=== PATIENT | female | born 1960 | race Caucasian/White ===

== ENCOUNTER → 2017-02-04 | Outpatient (CLI) | payer OTHER ==
--- NOTE | 2017-02-04 19:25 | RADRPT ---
PROCEDURE: XR Right hip and pelvis. CLINICAL INDICATION: Right hip pain and pelvic pain. TECHNIQUE: 3 views. Frontal pelvis. Frontal and lateral right hip. COMPARISON: None. FINDINGS: There is no fracture or dislocation. The soft tissues are normal. There are degenerative changes of the right hip with joint space narrowing, osteophytes, subarticula r sclerosis, and deformity. There are degenerative changes of the left hip with joint space narrowi ng and osteophytes. There is no lytic or blastic lesion. There is no radiopaque foreign body. IMPRESSION: 1. Severe degenerative changes of the right hip. 2. Moderate degenerative changes of the left hip. 3. No acute abnormality. RPTAT: QQ .Nilesh Wolfe MD, MD Date Time Electronically viewed and signed by .Nilesh Wolfe MD, on 02/04/2017 19:25 .R/
== END | disposition home or self-care (01) ==
LOC: HKI 15:43
PROVIDERS: ATTEND Orthopaedic Surgery
DX: M25.551 Pain in right hip (principal); M16.0 Bilateral primary osteoarthritis of hip
CPT/HCPCS: 73502; G0463

== ENCOUNTER 2017-08-27 05:48 | Inpatient (IN) | END 2017-08-28 15:25 | disposition home health service (06) | DRG 470 ==

== ENCOUNTER 2017-12-25 03:48 | Inpatient (IN) | END 2017-12-31 14:52 | disposition home health service (06) | DRG 467 ==

== ENCOUNTER 2018-07-03 15:56 | Inpatient (IN) | END 2018-07-06 12:25 | disposition home or self-care (01) | DRG 872 ==

== ENCOUNTER 2018-07-26 17:02 | Inpatient (IN) | payer OTHER ==
[~2018-07-26] VITALS: Ht 175.3 cm; Wt 105.1 kg
[~2018-07-26 17:02] MED LIST: CELE100C PO; DULO30CA47 PO; IBUP-1542 PO; LEVO50TA7 PO; SULF1TAB31 PO; TRAM50TA2 PO
[2018-07-26] MEDS ORDERED: SODIUM CHLORIDE 0.9% 1L BAG IV* STA (17:34)
[2018-07-26] MEDS ORDERED: morphine 4 MG/ML VIAL IV STA (17:34)
[2018-07-26] MEDS ORDERED: FENTAnyl 50 MCG/ML VIAL IV ONE ×2 (18:00→23:00)
[2018-07-26] MEDS ORDERED: CEFEPIME 1GM/50 ML (PMX) 50 ML IVPB ONE (18:00)
[2018-07-26] MEDS ORDERED: ACETAMINOPHEN 325 MG TAB PO ONE (18:00)
[2018-07-26] MEDS ORDERED: VANCOMYCIN 1 GM (PMX) 250 ML IVPB ONE (18:00)
--- NOTE | 2018-07-26 18:13 | ERD ---
ER Documentation Chief Complaint Chief Complaint RIGHT HIP PAIN HPI This is a 57-year-old female with a past medical history of hypothyroidism, bilateral hip osteoarthritis status post right XENIA in August 2017 complicated by an infected joint requiring washout and revision in December 2017 who is presenting with 1-2 days of severe right hip pain and fever. The patient presented in June 2018 for similar symptoms. A CT was performed at that time that demonstrated a small right joint effusion. The patient was evaluated by her orthopedic surgeon, Dr. Menchaca, who ultimately cleared her. It was felt at that time that her joint was not infected. The patient reports not feeling febrile or sick, but she is in a significant amount of pain. She does have oral narcotic medications at home, but they have not been helping her. She is also endorses significant pain with movement and has had increased difficulty with ambulation. She does not endorse any alleviating factors. The patient was found to be febrile in triage. The patient denies feeling sick recently. The patient denies fever or chills. The patient has had no headache or vision changes. The patient does not endorse neck or back pain. The patient denies lightheadedness or dizziness. The patient has had no chest pain or trouble breathing. The patient denies nausea or vomiting. The patient denies abdominal pain. The patient denies changes to bowel movements or urination. The patient has had no focal deficits. The patient has had no weakness or numbness or tingling to the face or extremities. ROS All systems reviewed and are negative except as per history of present illness. Medications Home Meds Active Scripts Celecoxib* (Celebrex*) 100 Mg Capsule, 100 MG PO BID for 14 Days, #30 CAP Prov:JEFFREY ARIAS MD 07/06/18 Reported Medications Duloxetine Hcl* (Duloxetine Hcl*) 30 Mg Capsule., 30 MG PO BID, #30 CAP 07/03/18 Levothyroxine Sodium* (Levothyroxine Sodium*) 50 Mcg Tablet, 50 MCG PO BEFORE BREAKFAST, #30 TAB 08/27/17 Tramadol HCl (Tramadol HCl) 50 Mg Tablet, 50 MG PO BID, #60 TAB 08/27/17 Ibuprofen* (Ibuprofen*) 600 Mg Tablet, 600 MG PO NEEDED, TAB 08/27/17 Discontinued Scripts Sulfamethoxazole/Trimethoprim* (Bactrim Ds* Tablet) 1 Each Tablet, 1 TAB PO BID for 7 Days, TAB Prov:JEFFREY ARIAS MD 07/06/18 Allergies Allergies: Coded Allergies: oxacillin (Verified Allergy, Severe, 07/26/18) dizziness and weakness of extremities. Pt tolerates cefazolin. PMhx/Soc History of Surgery: Yes (RIGHT HIP REPLACEMENT 08/2017, revision in 12/2017 due to septic joint) Anesthesia Reaction: No Hx Neurological Disorder: No Hx Respiratory Disorders: No Hx Cardiac Disorders: No Hx Psychiatric Problems: Yes (DEPRESSION) Hx Miscellaneous Medical Probl: Yes (B/l hip OA, hypothyroidism) Hx Alcohol Use: No Hx Substance Use: No Hx Tobacco Use: No Smoking Status: Never smoker FmHx Family History: No diabetes Physical Exam Vitals Vital Signs Date Temp Pulse Resp B/P (MAP) Pulse Ox O2 O2 Flow FiO2 Time Delivery Rate 07/26/18 100.1 106 18 140/78 97 Room Air 19:30 (98) 07/26/18 100.1 19:10 07/26/18 Nasal 17:41 Cannula 07/26/18 101.6 99 18 123/68 99 17:04 (86) Physical Exam Const: No apparent distress, well-developed, well-nourished Head: Normocephalic, Atraumatic Eyes: Normal Conjunctiva. Extraocular movements intact. Pupils equal, round and reactive to light ENT: Normal External Ears, Nose and Mouth. Neck: Full range of motion. No meningismus. Resp: Clear to auscultation bilaterally, No wheezes, rales or rhonchi Cardio: Regular rate and rhythm. No murmurs, rubs or gallops Abd: Soft, non tender, non distended. Normal bowel sounds Skin: No petechiae or rashes Back: No midline tenderness. No CVA tenderness Ext: No cyanosis, or edema. Warmth over the right hip. No erythema externally. Limited range of motion secondary to pain of the right hip. Neur: Awake and alert, oriented 4. Cranial nerves intact. No facial droop. Normal strength, sensation and coordination. Psych: Normal Mood and Affect Result Diagram: 07/26/18 1748 07/26/18 1748 Results 24 hrs Laboratory Tests Test 07/26/18 17:48 07/26/18 17:49 07/26/18 19:48 07/26/18 19:50 White Blood Count 9.9 10^3/ul Red Blood Count 3.16 10^6/ul Hemoglobin 9.0 g/dl Hematocrit 27.9 % Mean Corpuscular 88.3 fl Volume Mean Corpuscular 28.5 pg Hemoglobin Mean Corpuscular 32.3 g/dl Hemoglobin Concent Red Cell 13.5 % Distribution Width Platelet Count 390 10^3/UL Mean Platelet 8.7 fl Volume Immature 1.100 % Granulocytes % Neutrophils % 77.4 % Lymphocytes % 11.4 % Monocytes % 9.6 % Eosinophils % 0.1 % Basophils % 0.4 % Nucleated Red Blood 0.0 /100WBC Cells % Immature 0.110 10^3/ul Granulocytes # Neutrophils # 7.7 10^3/ul Lymphocytes # 1.1 10^3/ul Monocytes # 1.0 10^3/ul Eosinophils # 0.0 10^3/ul Basophils # 0.0 10^3/ul Nucleated Red Blood 0.0 10^3/ul Cells # Erythrocyte 128 mm/Hr Sedimentation Rate Prothrombin Time 13.2 Sec Prothrombin Time 1.0 Ratio INR International 0.99 Normalized Ratio Activated 38.4 Sec Partial Thromboplas t Time Sodium Level 135 mmol/L Potassium Level 3.4 mmol/L Chloride Level 101 mmol/L Carbon Dioxide 23 mmol/L Level Anion Gap 11 Blood Urea Nitrogen 14 mg/dl Creatinine 0.77 mg/dl Est Glomerular > 60 mL/min Filtrat Rate mL/min Glucose Level 109 mg/dl Calcium Level 9.6 mg/dl Total Bilirubin 0.1 mg/dl Direct Bilirubin 0.00 mg/dl Indirect Bilirubin 0.1 mg/dl Aspartate Amino 26 IU/L Transf (AST/SGOT) Alanine 10 IU/L Aminotransferase (A LT/SGPT) Alkaline 107 IU/L Phosphatase C-Reactive Protein 16.7 mg/dl Total Protein 8.1 g/dl Albumin 4.1 g/dl Globulin 4.00 g/dl Albumin/Globulin 1.02 Ratio POC Venous Lactate 2.4 mmol/L 0.3 mmol/L 1.0 mmol/L Current Medications Medications Dose Sig/Fidel Start Time Status Last (Trade) Ordered Route PRN Stop Time Admin Dose Reason Admin Sodium 1,640 ml BOLUS OVER 2 07/26/18 DC 07/26/18 Chloride HOURS STAT 17:34 17:46 (NS) IV* 07/26/18 17:40 Morphine 4 mg ONCE STAT 07/26/18 DC 07/26/18 Sulfate IV 17:34 17:46 (morphine) 07/26/18 17:56 650 mg ONCE ONCE 07/26/18 DC 07/26/18 Acetaminophen PO 18:00 18:10 (Tylenol 07/26/18 18:01 Tab) Vancomycin 250 ml @ ONCE ONCE 07/26/18 DC 07/26/18 HCl 125 mls/hr IVPB 18:00 18:10 07/26/18 19:59 Cefepime HCl 50 ml @ ONCE ONCE 07/26/18 DC 07/26/18 100 mls/hr IVPB 18:00 18:10 07/26/18 18:29 Fentanyl 50 mcg ONCE ONCE 07/26/18 DC 07/26/18 (Sublimaze) IV 18:00 20:08 07/26/18 18:01 IV Flush 10 ml STK-MED 07/26/18 DC 07/26/18 (NS 10 ml) ONCE .ROUTE 18:31 19:17 07/26/18 18:32 Sodium 100 ml @ ud STK-MED 07/26/18 DC 07/26/18 Chloride ONCE .ROUTE 18:31 19:17 07/26/18 18:32 Iohexol 150 ml STK-MED 07/26/18 DC 07/26/18 (Omnipaque ONCE .ROUTE 18:31 19:17 300mg/ ml) 07/26/18 18:32 Procedures/MDM MDM The patient's presentation warrants further investigation. Previous medical records, if available, were reviewed. LABS The patient's laboratory testing was obtained and reviewed. No emergent treatment was required unless described below. CBC: No E/o of systemic infection or severe anemia or thrombocytopenia. Mild normocytic anemia, not emergent. CMP: No E/o severe acidosis or alkalosis or renal failure or liver disease or diabetic ketoacidosis. Mild hypokalemia, nonemergent. Lactate: E/o severe sepsis ESR/CRP: Elevated EKG EKG read by me: Rate/Rhythm: Sinus tachycardia at 109 bpm Intervals: Normal [place]: Normal Impression: No evidence of acute ischemia or arrhythmia IMAGING Imaging and Radiology interpretation reviewed. CXR COMPARISON: 07/03/2018 FINDINGS: The cardiomediastinal silhouette is normal. There is no focal airspace consolidation or evidence of pulmonary vascular congestion. There is no pleural effusion or pneumothorax. The visualized osseous structures and soft tissues are unremarkable. IMPRESSION: No acute cardiopulmonary disease. Electronically viewed and signed by Physician kellen on 07/26/2018 18:21 CT Pelvis FINDINGS: Evaluation of the lung bases demonstrates mild bibasilar atelectasis. Abdomen: The liver is normal in size. There is no focal mass or dilatation of the biliary tree. The gallbladder is not distended. The spleen, pancreas and bilateral adrenal glands are within normal limits. Bilateral kidneys are normal in size with symmetric enhancement. There is no focal mass, hydronephrosis or hydroureter. There is no retroperitoneal adenopathy. The abdominal aorta is of normal caliber. There is moderate retained stool within the colon. There is no bowel obstruction or free air. A normal appendix is identified. There is no diverticulosis or diverticulitis. There is no ascites. Pelvis: The bladder is unremarkable. The uterus and adnexa are within normal limits. There is no significant pelvic adenopathy or free fluid. Bones: Evaluation of the osseous structures demonstrates no suspicious lytic or blastic lesion. The patient is status post total right hip arthroplasty with streak artifact. There is moderate narrowing of the superior left hip joint space with small osteophytes present. IMPRESSION: No acute abnormality identified within the abdomen and pelvis. Moderate retained stool within the colon. Moderate osteoarthritis of the left hip. Status post total hip knee arthroplasty. Electronically viewed and signed by .jJ Swartz MD, MD on 07/26/2018 19:15 TREATMENT/DISPOSITION The patient presents with a fever, lactic acidosis and severe right hip pain. The patient has had periprosthetic infections in the past, and I am concerned about the possibility of an infection today. The patient CT revealed. the patient was febrile and tachycardic which meets criteria for systemic inflammatory response. With her lactic acidosis, I am concerned about the p ossibility of severe sepsis. The patient is not in septic shock. The patient was given IV fluids and antibiotics in the emergency department. She was given morphine for pain control. I do feel the patient likely requires further evaluation by orthopedics. I spoke to the orthopedic surgeon ammonium hydroxide operator for Dr. Menchaca. Unfortunately, this physician does not perform joint replacements. He recommended that the patient be evaluated by the on-call orthopedic surgeon. Dr. Little was called and will assess the patient in the hospital. SEPSIS NOTE SIRS Criteria: Fever, tachycardia Infectious source: Right hip End organ damage indicated by: Lactate > 2.0 mmol/L SEPSIS MANAGEMENT Time to recognize sepsis: On arrival. Time to recognize severe sepsis: 1749. Time to recognize septic shock: No septic shock at this time. 3 HOUR BUNDLE Blood cultures x 2 before abx: Yes 30 ml/kg NS bolus completed Initial lactate 2.4 Repeat lactate pending SEPTIC SHOCK ASSESSMENT: NO lactic acid > 4.0 NO persistent hypotension (SBP < 90 or 40 mmHg drop, MAP < 65) despite 30 L/kg IV fluid bolus CRITICAL CARE Critical care time 35 minutes Emergent fluid management while maintaining close respiratory support. Provision of immediate and broad-spectrum antibiotic therapy. Simultaneous assessment for possible sources in order to direct targeted therapy. Consideration for invasive and chemical support to prevent cardiopulmonary collapse. Critical care time is independent of procedures performed. ADMISSION The patient will be admitted to panel in accordance with the patient's insuran ce. The patient was accepted by Dr. Donahue at 2044. Disclaimer: Inadvertent spelling and grammatical errors are likely due to EHR/dictation software use and do not reflect on the overall quality of patient care. Note that the electronic time recorded on this note does not necessarily reflect the actual time of the patient encounter. Departure Diagnosis: Primary Impression: Septic joint Septic arthritis location: hip Septic arthritis organism: due to unspecified organism Laterality: right Qualified Codes: M00.9 - Pyogenic arthritis, unspecified Additional Impressions: Right hip joint effusion Fever Fever type: unspecified Qualified Codes: R50.9 - Fever, unspecified Tachycardia Right hip pain Severe sepsis Lactic acidosis Normocytic anemia Elevated C-reactive protein (CRP) Hypokalemia Condition: Serious YONATHAN SANCHEZ MD Jul 26, 2018 18:06
[2018-07-26] MEDS ORDERED: SOD CHLORIDE 0.9% 100 ML ONE (18:31)
[2018-07-26] MEDS ORDERED: IOHEXOL 300MG/ML 150 ML BTL ONE (18:31)
[2018-07-26] MEDS ORDERED: ACETAMINOPHEN 325 MG TAB PO PRN ×2 (21:30→22:00)
[2018-07-26] MEDS ORDERED: VANCOMYCIN IV PER PHARMACY XX SCH (21:30)
[2018-07-26] MEDS ORDERED: ONDANSETRON 4 MG INJ IV PRN ×2 (21:30→22:00)
--- NOTE | 2018-07-26 21:33 | HP ---
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 CT does not show any acute abnormalities, however on examination patient has tenderness to palpation as well as limited range of motion secondary to pain of the right hip. She had a previous infection of the same hip in the past that was positive for MSSA. Vancomycin and cefepime at the current time. Patient's orthopedic surgeon Dr. Tirado he is currently on vacation, Dr. Little has been contacted by the ER and he is agreed to see the patient. Likely will need aspiration for culture, and possible debridement. Pain control with [place]/morphine. 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 History of MSSA on previous aspiration of joint. Orthopedic consultation, await further conditions. #3 Hypothyroidism: Check TSH, levothyroxine #4 depression: Continue home meds #5 obesity: We will check hemoglobin A 1C, lipid panel, TSH #6 DVT and GI prophylaxis: SCDs, no GI prophylaxis indicated Further treatment strategy will be implemented through the current course Result Diagram: 07/26/18 1748 07/26/18 1748 Results 24hrs Laboratory Tests Test 07/26/18 17:48 07/26/18 17:49 07/26/18 19:48 07/26/18 19:50 White Blood Count 9.9 Red Blood Count 3.16 L Hemoglobin 9.0 L Hematocrit 27.9 L Mean Corpuscular 88.3 Volume Mean Corpuscular 28.5 L Hemoglobin Mean Corpuscular 32.3 Hemoglobin Concent Red Cell 13.5 Distribution Width Platelet Count 390 # Mean Platelet Volume 8.7 Immature 1.100 H Granulocytes % Neutrophils % 77.4 H Lymphocytes % 11.4 L Monocytes % 9.6 Eosinophils % 0.1 Basophils % 0.4 Nucleated Red Blood 0.0 Cells % Immature 0.110 H Granulocytes # Neutrophils # 7.7 H Lymphocytes # 1.1 Monocytes # 1.0 H Eosinophils # 0.0 Basophils # 0.0 Nucleated Red Blood 0.0 Cells # Erythrocyte 128 H Sedimentation Rate Prothrombin Time 13.2 Prothrombin Time 1.0 Ratio INR International 0.99 Normalized Ratio Activated 38.4 H Partial Thromboplast Time Sodium Level 135 Potassium Level 3.4 L Chloride Level 101 Carbon Dioxide Level 23 Anion Gap 11 Blood Urea Nitrogen 14 Creatinine 0.77 Est Glomerular > 60 Filtrat Rate mL/min Glucose Level 109 Calcium Level 9.6 Total Bilirubin 0.1 L Direct Bilirubin 0.00 Indirect Bilirubin 0.1 Aspartate Amino 26 Transf (AST/SGOT) Alanine 10 L Aminotransferase (AL T/SGPT) Alkaline Phosphatase 107 C-Reactive Protein 16.7 H Total Protein 8.1 Albumin 4.1 Globulin 4.00 H Albumin/Globulin 1.02 Ratio POC Venous Lactate 2.4 *H 0.3 L 1.0 HPI/ROS Admit Date/Time Admit Date/Time Hx of Present Illness Chief complaint: Right hip pain times 2 days, fever This is a 57-year-old female with a past medical history of hypothyroidism, bilateral hip osteoarthritis status post right XENIA in August 2017 complicated by an infected joint requiring washout and revision in December 2017 who is presenting with 1-2 days of severe right hip pain and fever. The patient presented in June 2018 for similar symptoms. A CT was performed at that time that demonstrated a small right joint effusion. The patient was evaluated by her orthopedic surgeon, Dr. Menchaca, who ultimately cleared her. It was felt at that time that her joint was not infected. The patient reports not feeling febrile or sick, but she is in a significant amount of pain. She does state that her [place] at home has not been helping with her pain. And she has increased pain with movement and difficulty with ambulation. She has pain along the groin all the way to the lateral side of her hip. Allergies:: Oxacillin Medications: See MAR ROS Const: As per HPI Eyes : No pain discharge or redness or change in visual acuity ENT: No pain, sore throat, congestion, congestion, dysphagia or discharge Respiratory: No shortness of breath, cough, sputum, wheezing, or pleuritic pain Cardiovascular: No chest pain, palpitation, PND, or edema GI : no change in appetite, abdominal pain, nausea, vomiting, diarrhea, c onstipation, or change in the color his stool Genitourinary: No dysuria, hematuria, flank pain , discharge or CVA tenderness Musculoskeletal: As per HPI Skin: No rash, bruising or hives Neuro: No headache, dizziness, syncope, seizure, focal weakness Endocrine: No polyuria, polydipsia, temperature intolerance Psych: No hallucination, depression, anxiety or suicidal ideation PMH/Family/Social Past Medical History Obesity, hypothyroidism, osteoarthritis status post right hip replacement, status post right hip infection Medications Current Medications Ondansetron HCl (Zofran Inj) 4 mg ER BRIDGE PRN IV NAUSEA AND/OR VOMITING; Start 07/26/18 at 21:30; Stop 07/27/18 at 21:29 Acetaminophen (Tylenol Tab) 650 mg ER BRIDGE PRN PO MILD PAIN(1-3)OR ELEVATED TEMP; Start 07/26/18 at 21:30; Stop 07/27/18 at 21:29 Coded Allergies: oxacillin (Verified Allergy, Severe, 07/26/18) dizziness and weakness of extremities. Pt tolerates cefazolin. Past Surgical History s/p R hip irrigation, debridement, head and liner exchange 12/26/2017; intra-oper ative culture grew MSSA h/o R total hip replacement 08/27/2017 Family History Significant Family History: no pertinent family hx Social History Alcohol Use: none Smoking Status: Never smoker Drug Use: none Exam/Review of Systems Vital Signs Vitals Vital Signs Date Temp Pulse Resp B/P (MAP) Pulse Ox O2 O2 Flow FiO2 Time Delivery Rate 07/26/18 100.1 106 18 140/78 97 Room Air 19:30 (98) Exam Exam General: Patient is a pleasant female currently sitting in bed in mild distress from hip pain HEENT: Atraumatic, normocephalic. The pupils are equal, round and reactive. Extraocular motor are intact Neck: Supple with full range of motion. No rigidity or meningismus Chest: Nontender Lungs: Clear to auscultation bilaterally no crackles rales or wheezing Heart: Normal S1-S2, Regular rhythm and rate. No murmur, S3, or S4 Abdomen: obese, Soft , nontender, nondistended , bowel sounds are present. No guarding no rebound tenderness , No masses or organomegaly. No costovertebral temporal angle mass Extremities: Normal to inspection, no edema no cyanosis Musculoskeletal: Tenderness to palpation of the right hip from the inguinal area to the lateral aspect, no erythema or redness noted but it is warm to touch, painful ROM Neurologic: Normal mental status, speech normal, cranial nerves II through XII are intact, motor and sensory are intact, no focal weakness Additional Comments PROCEDURE: CT Abdomen and pelvis with contrast. CLINICAL INDICATION: Abdominal pain. TECHNIQUE: CT scan of the abdomen and pelvis with contrast was performed on a multi-detector high-resolution CT scanner. The patient was scanned following the uncomplicated administration of 100 cc of Omnipaque 300 intravenous contrast. Coronal and sagittal reformatted images were obtained from the axial source images. Images were reviewed on a high-resolution PACS workstation. DICOM images are available. One or more of the following dose reduction techniques were used: - Automated exposure control. - Adjustment of the mA and/or kV according to patient size. - Use of iterative reconstruction technique. Exam CTD/vol = 21.76 mGy. Total exam DLP = 1373.45 mGy-cm. COMPARISON: None. FINDINGS: Evaluation of the lung bases demonstrates mild bibasilar atelectasis. Abdomen: The liver is normal in size. There is no focal mass or dilatation of the biliary tree. The gallbladder is not distended. The spleen, pancreas and bilateral adrenal glands are within normal limits. Bilateral kidneys are normal in size with symmetric enhancement. There is no focal mass, hydronephrosis or hydroureter. There is no retroperitoneal adenopathy. The abdominal aorta is of normal caliber. There is moderate retained stool within the colon. There is no bowel obstruction or free air. A normal appendix is identified. There is no diverticulosis or diverticulitis. There is no ascites. Pelvis: The bladder is unremarkable. The uterus and adnexa are within normal limits. There is no significant pelvic adenopathy or free fluid. Evaluation of the osseous structures demonstrates no suspicious lytic or blastic lesion. The patient is status post total right hip arthroplasty with streak artifact. There is moderate narrowing of the superior left hip joint space with small osteophytes present. IMPRESSION: No acute abnormality identified within the abdomen and pelvis. Moderate retained stool within the colon. Moderate osteoarthritis of the left hip. Status post total hip knee arthroplasty. .Jj Swartz MD, MD Date Time Electronically viewed and signed by .Jj Swartz MD, MD on 07/26/2018 19:15 .T/ CC: YONATHAN SANCHEZ MD [id number] PROCEDURE: XR Chest. CLINICAL INDICATION: Possible sepsis. TECHNIQUE: Single portable view of the chest was obtained COMPARISON: 07/03/2018 FINDINGS: The cardiomediastinal silhouette is normal. There is no focal airspace consolidation or evidence of pulmonary vascular congestion. There is no pleural effusion or pneumothorax. The visualized osseous structures and soft tissues are unremarkable. IMPRESSION: 1. No acute cardiopulmonary disease. RPTAT: HEUY. ramona sheikh, Physician Date Time Electronically viewed and signed by ramona sheikh Physician on 07/26/2018 18:21 ry/ CC: YONATHAN SANCHEZ MD [id number] PROCEDURE: XR Chest. CLINICAL INDICATION: Possible sepsis. TECHNIQUE: Single portable view of the chest was obtained COMPARISON: 07/03/2018 FINDINGS: The cardiomediastinal silhouette is normal. There is no focal airspace consolidation or evidence of pulmonary vascular congestion. There is no pleural effusion or pneumothorax. The visualized osseous structures and soft tissues are unremarkable. IMPRESSION: 1. No acute cardiopulmonary disease. RPTAT: HEUY. ramona sheikh, Physician Date Time Electronically viewed and signed by ramona sheikh Physician on 07/26/2018 18:21 ry/ CC: YONATHAN SANCHEZ MD [id number] LISA RUIZ Jul 26, 2018 21:33
[2018-07-26] MEDS ORDERED: HEPARIN 5,000 UNIT/1 ML VIAL SC SCH (22:00)
[2018-07-26] MEDS ORDERED: BISACODYL (EC) 5 MG TAB PO PRN (22:00)
[2018-07-26] MEDS ORDERED: NACL 0.9% 3 ML SYG IV SCH (22:00)
[2018-07-26] MEDS ORDERED: DOCUSATE SODIUM 100 MG CAP PO PRN (22:00)
[2018-07-26] MEDS ORDERED: morphine 2 MG INJ IV PRN (22:00)
[2018-07-26] MEDS: SOD CHLORIDE 0.9% 1,000 ML IV SCH (22:59)
[2018-07-26 23:34] VITALS: BP 141/70; PULSE 104; RESP 20
[2018-07-26 23:36] VITALS: PULSE 104
[2018-07-26 23:38] VITALS: Ht 175.3 cm; Wt 105.1 kg
[2018-07-26] MEDS: morphine SULFATE/PF (2 MG/2 ML) SYG IV PRN (23:55)
[2018-07-26] MEDS: DIPHENHYDRAMINE 50 MG CAP PO PRN (23:57)
[2018-07-27] VITALS (9 sets, daily range): BP systolic 108–145; BP diastolic 55–75; PULSE 68–106; RESP 18–20
--- NOTE | 2018-07-27 01:47 | CONS ---
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 Tolerates cefazolin recommendations: - pending results: blood cultures x2 - tests to be done: diagnostic arthrocentesis (if sufficient joint effusion is found) - I recommend empiric IV vancomycin and cefepime (07/26/2017-); will adjust her antibiotic based on the culture and her clinical status management d/w Pt Result Diagram: 07/26/18 1748 07/26/18 1748 Results 24hrs Laboratory Tests Test 07/26/18 17:48 07/26/18 17:49 07/26/18 19:48 07/26/18 19:50 White Blood Count 9.9 Red Blood Count 3.16 L Hemoglobin 9.0 L Hematocrit 27.9 L Mean Corpuscular 88.3 Volume Mean Corpuscular 28.5 L Hemoglobin Mean Corpuscular 32.3 Hemoglobin Concent Red Cell 13.5 Distribution Width Platelet Count 390 # Mean Platelet Volume 8.7 Immature 1.100 H Granulocytes % Neutrophils % 77.4 H Lymphocytes % 11.4 L Monocytes % 9.6 Eosinophils % 0.1 Basophils % 0.4 Nucleated Red Blood 0.0 Cells % Immature 0.110 H Granulocytes # Neutrophils # 7.7 H Lymphocytes # 1.1 Monocytes # 1.0 H Eosinophils # 0.0 Basophils # 0.0 Nucleated Red Blood 0.0 Cells # Erythrocyte 128 H Sedimentation Rate Prothrombin Time 13.2 Prothrombin Time 1.0 Ratio INR International 0.99 Normalized Ratio Activated 38.4 H Partial Thromboplast Time Sodium Level 135 Potassium Level 3.4 L Chloride Level 101 Carbon Dioxide Level 23 Anion Gap 11 Blood Urea Nitrogen 14 Creatinine 0.77 Est Glomerular > 60 Filtrat Rate mL/min Glucose Level 109 Calcium Level 9.6 Total Bilirubin 0.1 L Direct Bilirubin 0.00 Indirect Bilirubin 0.1 Aspartate Amino 26 Transf (AST/SGOT) Alanine 10 L Aminotransferase (AL T/SGPT) Alkaline Phosphatase 107 C-Reactive Protein 16.7 H Total Protein 8.1 Albumin 4.1 Globulin 4.00 H Albumin/Globulin 1.02 Ratio POC Venous Lactate 2.4 *H 0.3 L 1.0 Test 07/26/18 21:37 Lactic Acid Level 0.7 Consultation Date/Type/Reason Admit Date/Time 07/26/2018 Date of Consultation: Jul 26, 2018 Type of Consult ID Reason for Consultation R hip pain and fever Requesting Provider: LISA RUIZ of Present Illness This is a 57 yo female with DJD who had R total hip replacement 08/27/2017. This was complicated by prosthetic R hip infection due to MSSA s/p aspiration 12/25/2017; ESR 130 at that time. Pt underwent R hip irrigation, debridement, head and liner exchange on 12/26/2017; the intra-op culture grew MSSA. Pt took IV cefazolin to complete total 6 week course IV antibiotic therapy followed by 3 months of PO cephalexin for chronic suppression. Pt was following up with me in the office and was doing well. On 07/03/2018 Pt presented at ER c/o R hip (groin) pain and fever. Blood cultures were negative and urine culture grew mixed bacteria. CT showed intact R hip arthroplasty without evidence of loosening or osteolysis, tiny joint effusion in R hip. Pt received IV vancomycin and pip/tazo, and was discharged on 07/06/2018. Pt took 7 days of antibiotic (name not available) after discharge. Pt was supposed to get IR guided arthrocentesis on 07/30/2018. However, on 07/25/2018, the same severe pain returned along with fever. Next day 07/26/2018 Pt retuned to ER. Upon presentation she had temp >101, HR>90. CT showed R hip arthroplasty with streak artifact. Pt was given a dose of IV vancomycin and cefepime and was admitted. I was asked to see this Pt for ID consultation. Constitutional: chills, diaphoresis, febrile, poor po Eyes: no complaints ENT: no complaints Respiratory: no complaints Cardiovascular: no complaints Gastrointestinal: no complaints Genitourinary: no complaints Musculoskeletal: restricted range of motion, other (L foot pain) Skin: no complaints; No bruising, No erythema Neurologic: No no complaints Past Medical History Medical History: GERD, hypothyroid, other (DJD) Medications Current Medications Ondansetron HCl (Zofran Inj) 4 mg ER BRIDGE PRN IV NAUSEA AND/OR VOMITING; Start 07/26/18 at 21:30; Stop 07/27/18 at 21:29 Acetaminophen (Tylenol Tab) 650 mg ER BRIDGE PRN PO MILD PAIN(1-3)OR ELEVATED TEMP; Start 07/26/18 at 21:30; Stop 07/27/18 at 21:29 Vancomycin HCl (Vanco Iv Per Pharmacy) VANCOMYCIN PER PHARMACY PER PROTOCOL XX ; Start 07/26/18 at 21:30 Cefepime HCl 50 ml @ 100 mls/hr Q12 IVPB ; Start 07/27/18 at 09:00 Sodium Chloride 1,000 ml @ 40 mls/hr Q24H IV Last administered on 07/26/18at 22:59; Admin Dose 40 MLS/HR; Start 07/26/18 at 21:34 IV Flush (NS 3 ml) 3 ml PER PROTOCOL IV ; Start 07/26/18 at 22:00 Ondansetron HCl (Zofran Inj) 4 mg Q6H PRN IV NAUSEA AND/OR VOMITING; Start 07/26/18 at 22:00 Acetaminophen (Tylenol Tab) 650 mg Q6H PRN PO PAIN LEVEL 1-3 OR FEVER Last administered on 07/27/18at 00:05; Admin Dose 650 MG; Start 07/26/18 at 22:00 Docusate Sodium (Colace) 100 mg Q12H PRN PO CONSTIPATION; Start 07/26/18 at 22:00 Bisacodyl (Dulcolax) 5 mg DAILY PRN PO CONSTIPATION; Start 07/26/18 at 22:00 Heparin Sodium (Porcine) (Heparin (5000 Units/1ml)) 5,000 unit Q8 SC Last administered on 07/27/18at 00:03; Admin Dose 5,000 UNIT; Start 07/26/18 at 22:00 Vancomycin HCl 1.25 gm/Sodium Chloride 250 ml @ 83.333 mls/ hr Q12H IVPB ; Start 07/27/18 at 06:00 Diphenhydramine HCl (Benadryl) 50 mg Q6H PRN PO ITCHING Last administered on 07/26/18at 23:57; Admin Dose 50 MG; Start 07/26/18 at 23:30 Morphine Sulfate (morphine SULFATE (PF)) 2 mg Q4H PRN IV PAIN LEVEL 7-10 Last administered on 07/26/18at 23:55; Admin Dose 2 MG; Start 07/26/18 at 23:36 Allergies: Coded Allergies: oxacillin (Verified Allergy, Severe, 07/26/18) dizziness and weakness of extremities. Pt tolerates cefazolin. Past Surgical History R hip surgeries as above Family History Significant Family History: no pertinent family hx Social History Alcohol Use: none Smoking Status: Never smoker Drug Use: none Exam/Review of Systems Vital Signs Vitals Vital Signs Date Temp Pulse Resp B/P (MAP) Pulse Ox O2 O2 Flow FiO2 Time Delivery Rate 07/27/18 100.6 00:05 07/27/18 106 00:00 07/26/18 20 141/70 98 Room Air 23:34 (93) Intake and Output 07/26/18 07/26/18 07/27/18 1414:59 22:59 06:59 IntakeIntake Total 1690 ml BalanceBalance 1690 ml Exam Constitutional: alert, oriented, obese Psych: no complaints, nl mood/affect Head: normocephalic, atraumatic Eyes: nl conjunctiva, nl lids, nl sclera ENMT: nl external ears & nose, nl nasal mucosa & septum, mucosa pink and moist Neck: supple Respiratory: clear to auscultation, normal air movement Cardiovascular: regular rate and rhythm, nl pulses; No edema Gastrointestinal: No distended Musculoskeletal: swelling (R groin and inguinal area are TTP) Extremities: normal pulses; No edema Neurological: FISHER MUSSEL II-XII intact, nl mental status, nl speech Skin: nl turgor; No rash or lesions Medications Medications Current Medications Ondansetron HCl (Zofran Inj) 4 mg ER BRIDGE PRN IV NAUSEA AND/OR VOMITING; Start 07/26/18 at 21:30; Stop 07/27/18 at 21:29 Acetaminophen (Tylenol Tab) 650 mg ER BRIDGE PRN PO MILD PAIN(1-3)OR ELEVATED TEMP; Start 07/26/18 at 21:30; Stop 07/27/18 at 21:29 Vancomycin HCl (Vanco Iv Per Pharmacy) VANCOMYCIN PER PHARMACY PER PROTOCOL XX ; Start 07/26/18 at 21:30 Cefepime HCl 50 ml @ 100 mls/hr Q12 IVPB ; Start 07/27/18 at 09:00 Sodium Chloride 1,000 ml @ 40 mls/hr Q24H IV Last administered on 07/26/18at 22:59; Admin Dose 40 MLS/HR; Start 07/26/18 at 21:34 IV Flush (NS 3 ml) 3 ml PER PROTOCOL IV ; Start 07/26/18 at 22:00 Ondansetron HCl (Zofran Inj) 4 mg Q6H PRN IV NAUSEA AND/OR VOMITING; Start 07/26/18 at 22:00 Acetaminophen (Tylenol Tab) 650 mg Q6H PRN PO PAIN LEVEL 1-3 OR FEVER Last administered on 07/27/18at 00:05; Admin Dose 650 MG; Start 07/26/18 at 22:00 Docusate Sodium (Colace) 100 mg Q12H PRN PO CONSTIPATION; Start 07/26/18 at 22:00 Bisacodyl (Dulcolax) 5 mg DAILY PRN PO CONSTIPATION; Start 07/26/18 at 22:00 Heparin Sodium (Porcine) (Heparin (5000 Units/1ml)) 5,000 unit Q8 SC Last administered on 07/27/18at 00:03; Admin Dose 5,000 UNIT; Start 07/26/18 at 22:00 Vancomycin HCl 1.25 gm/Sodium Chloride 250 ml @ 83.333 mls/ hr Q12H IVPB ; Start 07/27/18 at 06:00 Diphenhydramine HCl (Benadryl) 50 mg Q6H PRN PO ITCHING Last administered on 07/26/18at 23:57; Admin Dose 50 MG; Start 07/26/18 at 23:30 Morphine Sulfate (morphine SULFATE (PF)) 2 mg Q4H PRN IV PAIN LEVEL 7-10 Last administered on 07/26/18at 23:55; Admin Dose 2 MG; Start 07/26/18 at 23:36 SHELLY ADAM M.D. Jul 27, 2018 01:22
[2018-07-27] MEDS: morphine SULFATE/PF (2 MG/2 ML) SYG IV PRN ×3 (04:21→20:40)
[2018-07-27] MEDS: DIPHENHYDRAMINE 50 MG CAP PO PRN (05:02)
[2018-07-27] MEDS: HYDROCODONE/APAP (10/325) TAB PO PRN ×3 (05:07→17:11)
[2018-07-27] MEDS ORDERED: VANCOMYCIN HCL 1.25 GM in SOD CHLORIDE 0.9% 250 ML IVPB SCH (06:00)
[2018-07-27] MEDS: LEVOTHYROXINE 50 MCG TAB PO SCH (06:13)
[2018-07-27] MEDS ORDERED: POTASSIUM CHLORIDE (SR) 20 MEQ TAB PO STA (06:31)
[2018-07-27] MEDS: DULOXETINE 30 MG CAP DR PO SCH ×2 (08:21→20:41)
[2018-07-27] MEDS: CEFEPIME 2GM/50 ML (PMX) 50 ML IVPB SCH ×2 (08:21→17:10)
[2018-07-27] MEDS ORDERED: CEFEPIME 2GM/50 ML (PMX) 50 ML IVPB SCH (09:00)
--- NOTE | 2018-07-27 09:26 | PN ---
Date/Time of Note Date/Time of Note DATE: 07/27/18 TIME: 09:21 Assessment/Plan VTE [place]axis [place] [facility] [place]: 3 [place]CD applied [place] [facility] [place] SCD contraindicated: bilateral LE trauma Pharmacological prophylaxis: heparin Lines/Catheters IV [facility]ter Type (from [facility]): Peripheral IV Urinary Cath still in place: No Assessment/Plan Problems: (1) Fever Status: Acute Comment: Patient has been cultured and already started on antibiotics. Please note that our infectious disease air quality consultant went above and beyond the call of duty and came in and saw the patient late last night to make sure that she got a full workup going on appropriate antibiotics started. Deeply appreciated. Qualifiers: Fever type: unspecified Qualified Codes: R50.9 - Fever, unspecified (2) Septic joint Status: Acute Comment: Labs from orthopedics on this. The surgeon who performed the surgery is presently away from [facility] until the . We will attempt to get somebody to give us an initial consultative information and guidance in the meantime Qualifiers: Septic arthritis location: hip Septic arthritis organism: due to unspecified organism Laterality: right Qualified Codes: M00.9 - Pyogenic arthritis, unspecified (3) History of revision of total replacement of right hip joint Onset Date: ~ 12/26/2017 Status: Chronic Comment: See the infectious disease notes regarding the MSSA cultures (4) Iron deficiency anemia Status: Chronic Comment: I am going to go ahead and give Ferrlecit. Some of the anemia undoubtedly would be due to some inflammation but we do know that she is low on iron Qualifiers: Iron deficiency anemia type: chronic blood loss Qualified Codes: D50.0 - Iron deficiency anemia secondary to blood loss (chronic) (5) Acquired hypothyroidism Status: Chronic Comment: Continue with replacement therapy (6) Obesity (BMI 30.0-34.9) Status: Chronic Comment: Noted. Result Diagram: 07/27/18 0543 07/27/18 0543 Results 24hrs Laboratory Tests Test 07/26/18 17:48 07/26/18 17:49 07/26/18 19:48 07/26/18 19:50 White Blood Count 9.9 Red Blood Count 3.16 L Hemoglobin 9.0 L Hematocrit 27.9 L Mean Corpuscular 88.3 Volume Mean Corpuscular 28.5 L Hemoglobin Mean Corpuscular 32.3 Hemoglobin Concent Red Cell 13.5 Distribution Width Platelet Count 390 # Mean Platelet Volume 8.7 Immature 1.100 H Granulocytes % Neutrophils % 77.4 H Lymphocytes % 11.4 L Monocytes % 9.6 Eosinophils % 0.1 Basophils % 0.4 Nucleated Red Blood 0.0 Cells % Immature 0.110 H Granulocytes # Neutrophils # 7.7 H Lymphocytes # 1.1 Monocytes # 1.0 H Eosinophils # 0.0 Basophils # 0.0 Nucleated Red Blood 0.0 Cells # Erythrocyte 128 H Sedimentation Rate Prothrombin Time 13.2 Prothrombin Time 1.0 Ratio INR International 0.99 Normalized Ratio Activated 38.4 H Partial Thromboplast Time Sodium Level 135 Potassium Level 3.4 L Chloride Level 101 Carbon Dioxide Level 23 Anion Gap 11 Blood Urea Nitrogen 14 Creatinine 0.77 Est Glomerular > 60 Filtrat Rate mL/min Glucose Level 109 Calcium Level 9.6 Total Bilirubin 0.1 L Direct Bilirubin 0.00 Indirect Bilirubin 0.1 Aspartate Amino 26 Transf (AST/SGOT) Alanine 10 L Aminotransferase (AL T/SGPT) Alkaline Phosphatase 107 C-Reactive Protein 16.7 H Total Protein 8.1 Albumin 4.1 Globulin 4.00 H Albumin/Globulin 1.02 Ratio POC Venous Lactate 2.4 *H 0.3 L 1.0 Test 07/26/18 21:37 07/27/18 05:43 Lactic Acid Level 0.7 White Blood Count 7.9 # Red Blood Count 2.83 L Hemoglobin 8.1 L Hematocrit 25.3 L Mean Corpuscular 89.4 Volume Mean Corpuscular 28.6 L Hemoglobin Mean Corpuscular 32.0 Hemoglobin Concent Red Cell 13.7 Distribution Width Platelet Count 316 Mean Platelet Volume 9.1 Immature 1.500 H Granulocytes % Neutrophils % 69.0 Lymphocytes % 18.8 Monocytes % 10.3 Eosinophils % 0.0 Basophils % 0.4 Nucleated Red Blood 0.0 Cells % Immature 0.120 H Granulocytes # Neutrophils # 5.5 Lymphocytes # 1.5 Monocytes # 0.8 Eosinophils # 0.0 Basophils # 0.0 Nucleated Red Blood 0.0 Cells # Erythrocyte 128 H Sedimentation Rate Sodium Level 140 Potassium Level 3.3 L Chloride Level 102 Carbon Dioxide Level 24 Anion Gap 14 H Blood Urea Nitrogen 10 Creatinine 0.74 Est Glomerular > 60 Filtrat Rate mL/min Glucose Level 105 Hemoglobin A1c 5.4 Calcium Level 8.9 Magnesium Level 1.7 Total Bilirubin 0.0 L Direct Bilirubin 0.00 Indirect Bilirubin 0.0 Aspartate Amino 20 Transf (AST/SGOT) Alanine 19 Aminotransferase (AL T/SGPT) Alkaline Phosphatase 78 Total Protein 7.0 # Albumin 3.3 Globulin 3.70 H Albumin/Globulin 0.89 Ratio Triglycerides Level 80 Cholesterol Level 124 LDL Cholesterol, 81 Calculated HDL Cholesterol 27 L Cholesterol/HDL 4.5 Ratio Thyroid Stimulating 1.620 Hormone (TSH) CC: MARCEL FARMER; SHELLY ADAM M.D. ; Subjective 24 Hr Interval Summary Free Text/Dictation Patient is complaining of significant pain at the site of the hip prosthesis. She has been having some fevers Constitutional: chills, febrile Respiratory: no complaints Cardiovascular: no complaints Gastrointestinal: no complaints Genitourinary: no complaints Musculoskeletal: other (Pain and limited range of motion of the right hip) Exam/Review of Systems Vital Signs Vitals Vital Signs Date Temp Pulse Resp B/P (MAP) Pulse Ox O2 O2 Flow FiO2 Time Delivery Rate 07/27/18 98 08:01 07/27/18 98.7 20 116/75 98 Room Air 07:22 (89) Intake and Output 07/26/18 07/26/18 07/27/18 1515:00 23:00 07:00 IntakeIntake Total 1690 ml 680 ml BalanceBalance 1690 ml 680 ml Exam Appears to be in discomfort Constitutional: alert, oriented Eyes: nl conjunctiva, EOMI, nl lids, nl sclera, PERRL Neck: supple, non-tender Respiratory: clear to auscultation, normal air movement Cardiovascular: regular rate and rhythm, nl pulses Gastrointestinal: soft, nl liver, spleen, non-tender Medications Medications Current Medications Ondansetron HCl (Zofran Inj) 4 mg ER BRIDGE PRN IV NAUSEA AND/OR VOMITING; Start 07/26/18 at 21:30; Stop 07/27/18 at 21:29 Acetaminophen (Tylenol Tab) 650 mg ER BRIDGE PRN PO MILD PAIN(1-3)OR ELEVATED TEMP; Start 07/26/18 at 21:30; Stop 07/27/18 at 21:29 Vancomycin HCl (Vanco Iv Per Pharmacy) VANCOMYCIN PER PHARMACY PER PROTOCOL XX ; Start 07/26/18 at 21:30 Sodium Chloride 1,000 ml @ 40 mls/hr Q24H IV Last administered on 1/12/19at 22:59; Admin Dose 40 MLS/HR; Start 07/26/18 at 21:34 IV Flush (NS 3 ml) 3 ml PER PROTOCOL IV ; Start 07/26/18 at 22:00 Ondansetron HCl (Zofran Inj) 4 mg Q6H PRN IV NAUSEA AND/OR VOMITING; Start 07/26/18 at 22:00 Acetaminophen (Tylenol Tab) 650 mg Q6H PRN PO PAIN LEVEL 1-3 OR FEVER Last administered on 07/27/18at 00:05; Admin Dose 650 MG; Start 07/26/18 at 22:00 Docusate Sodium (Colace) 100 mg Q12H PRN PO CONSTIPATION; Start 07/26/18 at 22:00 Bisacodyl (Dulcolax) 5 mg DAILY PRN PO CONSTIPATION; Start 07/26/18 at 22:00 Diphenhydramine HCl (Benadryl) 50 mg Q6H PRN PO ITCHING Last administered on 07/27/18at 05:02; Admin Dose 50 MG; Start 07/26/18 at 23:30 Morphine Sulfate (morphine SULFATE (PF)) 2 mg Q4H PRN IV PAIN LEVEL 7-10 Last administered on 07/27/18 08:21; Admin Dose 2 MG; Start 07/26/18 at 23:36 Cefepime HCl 50 ml @ 100 mls/hr Q8H IVPB Last administered on 07/27/18 08:21; Admin Dose 100 MLS/HR; Start 07/27/18 at 09:00 Levothyroxine Sodium (Synthroid) 50 mcg BEFORE BREAKFAST PO Last administered on 07/27/18 06:13; Admin Dose 50 MCG; Start 07/27/18 at 07:00 Acetaminophen/ Hydrocodone Bitart ([place] (10/325)) 1 tab Q6H PRN PO MODERATE PAIN LEVEL 4-6 Last administered on 07/27/18 05:07; Admin Dose 1 TAB; Start 07/27/18 at 04:30 Duloxetine HCl (Cymbalta) 30 mg BID PO Last administered on 07/27/18 08:21; Admin Dose 30 MG; Start 07/27/18 at 09:00 Vancomycin HCl 1.5 gm/Sodium Chloride 250 ml @ 83.333 mls/ hr Q12H IVPB ; Start 07/27/18 at 18:00 Celecoxib (Celebrex) 200 mg ONCE ONCE PO ; Start 07/27/18 at 09:30; Stop 07/27/18 at 09:31; Status UNV Celecoxib (Celebrex) 100 mg BID PO ; Start 07/27/18 at 21:00; Status JEFFREY BRO MD Jul 27, 2018 09:26
[2018-07-27] MEDS ORDERED: PANTOPRAZOLE (EC) 40 MG TAB PO ONE (09:30)
[2018-07-27] MEDS ORDERED: CELECOXIB 200 MG CAP PO ONE (09:30)
[2018-07-27] MEDS: SOD FERRIC GLUC COMPLX 125 MG in SOD CHLORIDE 0.9% 100 ML IVPB SCH (14:08)
--- NOTE | 2018-07-27 15:11 | CONS ---
[facility] HCIS Consult Follow-up Patient Name: Eliane Acuña Unit Number: [id number] Date of : 1960 Patient Status: Admitted Inpatient Attending Doctor: Vineet Ruiz Edit: SHLELY SAVAGE M.D. 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 Tolerates cefazolin - ESR 128 Recommendations: - Pending results: blood cultures x2 (GPC in pairs both bottles) - Ordered: Repeat blood cultures x2 15 min apart now - We recommend empiric IV vancomycin and cefepime (07/26/2017-); continue for now, will adjust her antibiotic based on the culture results and her clinical status - Tests to be done: diagnostic arthrocentesis (if sufficient joint effusion is found) - We recommend an Echo to r/o endocarditis. Management was d/w patient and with Dr. Savage Thank you Result Diagram: 07/27/18 0543 07/27/18 0543 Results 24hrs Laboratory Tests Test 07/26/18 17:48 07/26/18 17:49 07/26/18 19:48 07/26/18 19:50 White Blood Count 9.9 Red Blood Count 3.16 L Hemoglobin 9.0 L Hematocrit 27.9 L Mean Corpuscular 88.3 Volume Mean Corpuscular 28.5 L Hemoglobin Mean Corpuscular 32.3 Hemoglobin Concent Red Cell 13.5 Distribution Width Platelet Count 390 # Mean Platelet Volume 8.7 Immature 1.100 H Granulocytes % Neutrophils % 77.4 H Lymphocytes % 11.4 L Monocytes % 9.6 Eosinophils % 0.1 Basophils % 0.4 Nucleated Red Blood 0.0 Cells % Immature 0.110 H Granulocytes # Neutrophils # 7.7 H Lymphocytes # 1.1 Monocytes # 1.0 H Eosinophils # 0.0 Basophils # 0.0 Nucleated Red Blood 0.0 Cells # Erythrocyte 128 H Sedimentation Rate Prothrombin Time 13.2 Prothrombin Time 1.0 Ratio INR International 0.99 Normalized Ratio Activated 38.4 H Partial Thromboplast Time Sodium Level 135 Potassium Level 3.4 L Chloride Level 101 Carbon Dioxide Level 23 Anion Gap 11 Blood Urea Nitrogen 14 Creatinine 0.77 Est Glomerular > 60 Filtrat Rate mL/min Glucose Level 109 Calcium Level 9.6 Total Bilirubin 0.1 L Direct Bilirubin 0.00 Indirect Bilirubin 0.1 Aspartate Amino 26 Transf (AST/SGOT) Alanine 10 L Aminotransferase (AL T/SGPT) Alkaline Phosphatase 107 C-Reactive Protein 16.7 H Total Protein 8.1 Albumin 4.1 Globulin 4.00 H Albumin/Globulin 1.02 Ratio POC Venous Lactate 2.4 *H 0.3 L 1.0 Test 07/26/18 21:37 07/27/18 05:43 Lactic Acid Level 0.7 White Blood Count 7.9 # Red Blood Count 2.83 L Hemoglobin 8.1 L Hematocrit 25.3 L Mean Corpuscular 89.4 Volume Mean Corpuscular 28.6 L Hemoglobin Mean Corpuscular 32.0 Hemoglobin Concent Red Cell 13.7 Distribution Width Platelet Count 316 Mean Platelet Volume 9.1 Immature 1.500 H Granulocytes % Neutrophils % 69.0 Lymphocytes % 18.8 Monocytes % 10.3 Eosinophils % 0.0 Basophils % 0.4 Nucleated Red Blood 0.0 Cells % Immature 0.120 H Granulocytes # Neutrophils # 5.5 Lymphocytes # 1.5 Monocytes # 0.8 Eosinophils # 0.0 Basophils # 0.0 Nucleated Red Blood 0.0 Cells # Erythrocyte 128 H Sedimentation Rate Sodium Level 140 Potassium Level 3.3 L Chloride Level 102 Carbon Dioxide Level 24 Anion Gap 14 H Blood Urea Nitrogen 10 Creatinine 0.74 Est Glomerular > 60 Filtrat Rate mL/min Glucose Level 105 Hemoglobin A1c 5.4 Calcium Level 8.9 Magnesium Level 1.7 Total Bilirubin 0.0 L Direct Bilirubin 0.00 Indirect Bilirubin 0.0 Aspartate Amino 20 Transf (AST/SGOT) Alanine 19 Aminotransferase (AL T/SGPT) Alkaline Phosphatase 78 Total Protein 7.0 # Albumin 3.3 Globulin 3.70 H Albumin/Globulin 0.89 Ratio Triglycerides Level 80 Cholesterol Level 124 LDL Cholesterol, 81 Calculated HDL Cholesterol 27 L Cholesterol/HDL 4.5 Ratio Thyroid Stimulating 1.620 Hormone (TSH) Consultation Date/Type/Reason Admit Date/Time Jul 26, 2018 at 21:18 Initial Consult Date 07/26/18 Type of Consult ID Requesting Provider: VINEET RUIZ 24 HR Interval Summary Free Text/Dictation Blood cultures growing GPC in pairs. T max today 99.3 Per d/w patient she has been feeling "hot" today but believes it is the room temperature. denies feelings of sweats, chills, sob, cp, cough, n/v/d, abd pain, pruritis, rash. Pain in Right hip 5/10 today. Denies redness, swelling in Right hip. Exam/Review of Systems Vital Signs Vitals Vital Signs Date Temp Pulse Resp B/P (MAP) Pulse Ox O2 O2 Flow FiO2 Time Delivery Rate 07/27/18 104 12:01 07/27/18 99.2 18 145/71 94 Room Air 11:58 (95) Intake and Output 07/26/18 07/26/18 07/27/18 1515:00 23:00 07:00 IntakeIntake Total 1690 ml 680 ml BalanceBalance 1690 ml 680 ml Exam Constitutional: alert, oriented, well developed, obese Psych: no complaints, nl mood/affect Head: normocephalic, atraumatic Eyes: nl conjunctiva, nl lids, nl sclera ENMT: nl external ears & nose, nl nasal mucosa & septum, mucosa pink and moist Neck: supple, non-tender Respiratory: clear to auscultation, normal air movement Cardiovascular: regular rate and rhythm, nl pulses Gastrointestinal: soft, non-tender, bowel sounds (normoactive ); No distended Musculoskeletal: nl extremities to inspection Extremities: normal pulses Neurological: CARD MOUNTER II-XII intact, nl mental status, nl speech, nl strength Skin: nl turgor, other (R posterior hip feels slightly more warm than other extremities ); No rash or lesions Medications Medications Current Medications Vancomycin HCl (Vanco Iv Per Pharmacy) VANCOMYCIN PER PHARMACY PER PROTOCOL XX ; Start 07/26/18 at 21:30 Sodium Chloride 1,000 ml @ 40 mls/hr Q24H IV Last administered on 07/26/18at 22:59; Admin Dose 40 MLS/HR; Start 07/26/18 at 21:34 IV Flush (NS 3 ml) 3 ml PER PROTOCOL IV ; Start 07/26/18 at 22:00 Ondansetron HCl (Zofran Inj) 4 mg Q6H PRN IV NAUSEA AND/OR VOMITING; Start 07/26/18 at 22:00 Acetaminophen (Tylenol Tab) 650 mg Q6H PRN PO PAIN LEVEL 1-3 OR FEVER Last administered on 07/27/18at 00:05; Admin Dose 650 MG; Start 07/26/18 at 22:00 Docusate Sodium (Colace) 100 mg Q12H PRN PO CONSTIPATION; Start 07/26/18 at 22:00 Bisacodyl (Dulcolax) 5 mg DAILY PRN PO CONSTIPATION; Start 07/26/18 at 22:00 Diphenhydramine HCl (Benadryl) 50 mg Q6H PRN PO ITCHING Last administered on 07/27/18at 05:02; Admin Dose 50 MG; Start 07/26/18 at 23:30 Morphine Sulfate (morphine SULFATE (PF)) 2 mg Q4H PRN IV PAIN LEVEL 7-10 Last administered on 07/27/18at 08:21; Admin Dose 2 MG; Start 07/26/18 at 23:36 Cefepime HCl 50 ml @ 100 mls/hr Q8H IVPB Last administered on 07/27/18at 08:21; Admin Dose 100 MLS/HR; Start 07/27/18 at 09:00 Levothyroxine Sodium (Synthroid) 50 mcg BEFORE BREAKFAST PO Last administered on 07/27/18at 06:13; Admin Dose 50 MCG; Start 07/27/18 at 07:00 Acetaminophen/ Hydrocodone Bitart (Topaz (10/325)) 1 tab Q6H PRN PO MODERATE PA IN LEVEL 4-6 Last administered on 07/27/18at 11:12; Admin Dose 1 TAB; Start 07/27/18 at 04:30 Duloxetine HCl (Cymbalta) 30 mg BID PO Last administered on 07/27/18at 08:21; Admin Dose 30 MG; Start 07/27/18 at 09:00 Vancomycin HCl 1.5 gm/Sodium Chloride 250 ml @ 83.333 mls/ hr Q12H IVPB ; Start 07/27/18 at 18:00 Celecoxib (Celebrex) 100 mg BID PO ; Start 07/27/18 at 21:00 Ferric Sodium Gluconate Complex 125 mg/Sodium Chloride 100 ml @ 100 mls/hr DAILY@1300 IVPB Last administered on 07/27/18at 14:08; Admin Dose 100 MLS/HR; Start 07/27/18 at 13:00; Stop 07/29/18 at 13:59 Pantoprazole (Protonix Tab) 40 mg DAILY@06 PO ; Start 07/28/18 at 06:00 Imaging Imaging CXR 07/26/18 IMPRESSION: 1. No acute cardiopulmonary disease. CT Abd/Pelvis 07/26/18 IMPRESSION: No acute abnormality identified within the abdomen and pelvis. Moderate retained stool within the colon. Moderate osteoarthritis of the left hip. Status post total hip knee arthroplasty. LOI MIRAMONTES NP Jul 27, 2018 15:09
[2018-07-27] MEDS: VANCOMYCIN HCL 1.5 GM in SOD CHLORIDE 0.9% 250 ML IVPB SCH (17:10)
[2018-07-27] MEDS: CELECOXIB 100 MG CAP PO SCH (20:41)
[2018-07-27] MEDS: SOD CHLORIDE 0.9% 1,000 ML IV SCH (20:42)
[2018-07-28] MEDS: CEFEPIME 2GM/50 ML (PMX) 50 ML IVPB SCH ×3 (00:50→18:02)
[2018-07-28] MEDS: HYDROCODONE/APAP (10/325) TAB PO PRN ×4 (00:50→20:24)
[2018-07-28 01:55] VITALS: BP 133/72; PULSE 103; RESP 18
[2018-07-28] MEDS: morphine SULFATE/PF (2 MG/2 ML) SYG IV PRN ×3 (05:34→18:39)
[2018-07-28] MEDS: VANCOMYCIN HCL 1.5 GM in SOD CHLORIDE 0.9% 250 ML IVPB SCH ×2 (05:34→20:23)
[2018-07-28] MEDS: LEVOTHYROXINE 50 MCG TAB PO SCH (05:34)
[2018-07-28] MEDS: PANTOPRAZOLE (EC) 40 MG TAB PO SCH (05:34)
[2018-07-28] MEDS: SOD CHLORIDE 0.9% 1,000 ML IV SCH (05:44)
[2018-07-28 07:21] VITALS: BP 135/72; PULSE 89; RESP 18
[2018-07-28] MEDS: CELECOXIB 100 MG CAP PO SCH ×2 (08:09→20:24)
[2018-07-28] MEDS: DULOXETINE 30 MG CAP DR PO SCH ×2 (08:09→20:24)
--- NOTE | 2018-07-28 10:48 | PN ---
Date/Time of Note Date/Time of Note DATE: 07/28/18 TIME: 10:39 Assessment/Plan VTE Prophylaxis Risk score (from [facility])>0 risk: 3 SCD applied (from [facility]): Yes Pharmacological prophylaxis: NA/contraindicated Pharm contraindication: low risk/ambulating Lines/Catheters IV Catheter Type (from [facility]): Peripheral IV Urinary Cath still in place: No Assessment/Plan Result Diagram: 07/28/18 0429 07/28/18 0429 Results 24hrs Laboratory Tests Test 07/28/18 04:29 White Blood Count 6.9 Red Blood Count 2.89 L Hemoglobin 8.2 L Hematocrit 25.9 L Mean Corpuscular Volume 89.6 Mean Corpuscular Hemoglobin 28.4 L Mean Corpuscular Hemoglobin Concent 31.7 L Red Cell Distribution Width 14.2 Platelet Count 307 Mean Platelet Volume 9.3 Immature Granulocytes % 2.300 H Neutrophils % 70.6 Lymphocytes % 14.3 L Monocytes % 11.8 H Eosinophils % 0.6 Basophils % 0.4 Nucleated Red Blood Cells % 0.0 Immature Granulocytes # 0.160 H Neutrophils # 4.9 Lymphocytes # 1.0 Monocytes # 0.8 Eosinophils # 0.0 Basophils # 0.0 Nucleated Red Blood Cells # 0.0 Sodium Level 138 Potassium Level 3.9 Chloride Level 106 Carbon Dioxide Level 24 Anion Gap 8 Blood Urea Nitrogen 15 Creatinine 0.68 Est Glomerular Filtrat Rate mL/min > 60 Glucose Level 104 Calcium Level 9.0 Total Bilirubin 0.0 L Direct Bilirubin 0.00 Indirect Bilirubin 0.0 Aspartate Amino Transf (AST/SGOT) 29 Alanine Aminotransferase (ALT/SGPT) 22 Alkaline Phosphatase 85 Total Protein 6.8 Albumin 3.3 Globulin 3.50 H Albumin/Globulin Ratio 0.94 Subjective 24 Hr Interval Summary Free Text/Dictation 57-year-old female who presented to our emergency room with severe pain in her right hip and was found to be febrile with sepsis currently managed as follows: 1. Sepsis 2/2 Staphylococcus bacteremia from ?recurrent septic joint with prosthesis 2. Status post right total hip arthroplasty with concern for septic joint causing bacteremia -- s/p prosthetic R hip infection due to MSSA, s/p aspiration 12/25/2017; ESR 130 at that time, culture grew MSSA -- s/p R hip irrigation, debridement, head and liner exchange 12/26/2017; intra-operative culture grew MSSA 3. Iron deficiency anemia -On IV iron replacement therapy 4. History of depression -stable on home meds 5. Hypothyroidism -TSH showing good control 6.Constipation 7. Chronic osteoarthritis Exam/Review of Systems Vital Signs Vitals Vital Signs Date Temp Pulse Resp B/P (MAP) Pulse Ox O2 O2 Flow FiO2 Time Delivery Rate 07/28/18 98.5 89 18 135/72 100 Room Air 07:21 (93) Intake and Output 07/27/18 07/27/18 07/28/18 1515:00 23:00 07:00 IntakeIntake Total 1050 ml 1133 ml OutputOutput Total 4 ml BalanceBalance 1046 ml 1133 ml Medications Medications Current Medications Vancomycin HCl (Vanco Iv Per Pharmacy) VANCOMYCIN PER PHARMACY PER PROTOCOL XX ; Start 07/26/18 at 21:30 Sodium Chloride 1,000 ml @ 40 mls/hr Q24H IV Last administered on 07/28/18at 05:44; Admin Dose 40 MLS/HR; Start 07/26/18 at 21:34 IV Flush (NS 3 ml) 3 ml PER PROTOCOL IV ; Start 07/26/18 at 22:00 Ondansetron HCl (Zofran Inj) 4 mg Q6H PRN IV NAUSEA AND/OR VOMITING; Start 07/26/18 at 22:00 Acetaminophen (Tylenol Tab) 650 mg Q6H PRN PO PAIN LEVEL 1-3 OR FEVER Last administered on 07/27/18at 00:05; Admin Dose 650 MG; Start 07/26/18 at 22:00 Docusate Sodium (Colace) 100 mg Q12H PRN PO CONSTIPATION; Start 07/26/18 at 22:00 Bisacodyl (Dulcolax) 5 mg DAILY PRN PO CONSTIPATION; Start 07/26/18 at 22:00 Diphenhydramine HCl (Benadryl) 50 mg Q6H PRN PO ITCHING Last administered on 07/27/18at 05:02; Admin Dose 50 MG; Start 07/26/18 at 23:30 Morphine Sulfate (morphine SULFATE (PF)) 2 mg Q4H PRN IV PAIN LEVEL 7-10 Last administered on 07/28/18at 09:26; Admin Dose 2 MG; Start 07/26/18 at 23:36 Cefepime HCl 50 ml @ 100 mls/hr Q8H IVPB Last administered on 07/28/18 08:09; Admin Dose 100 MLS/HR; Start 07/27/18 at 09:00 Levothyroxine Sodium (Synthroid) 50 mcg BEFORE BREAKFAST PO Last administered on 07/28/18 05:34; Admin Dose 50 MCG; Start 07/27/18 at 07:00 Acetaminophen/ Hydrocodone Bitart (Winlock (10/325)) 1 tab Q6H PRN PO MODERATE PAIN LEVEL 4-6 Last administered on 07/28/18 08:09; Admin Dose 1 TAB; Start 07/27/18 at 04:30 Duloxetine HCl (Cymbalta) 30 mg BID PO Last administered on 07/28/18 08:09; Admin Dose 30 MG; Start 07/27/18 at 09:00 Vancomycin HCl 1.5 gm/Sodium Chloride 250 ml @ 83.333 mls/ hr Q12H IVPB Last administered on 07/28/18 05:34; Admin Dose 83.333 MLS/HR; Start 07/27/18 at 18:00 Celecoxib (Celebrex) 100 mg BID PO Last administered on 07/28/18 08:09; Admin Dose 100 MG; Start 07/27/18 at 21:00 Ferric Sodium Gluconate Complex 125 mg/Sodium Chloride 100 ml @ 100 mls/hr DAILY@1300 IVPB Last administered on 07/27/18at 14:08; Admin Dose 100 MLS/HR; Start 07/27/18 at 13:00; Stop 07/29/18 at 13:59 Pantoprazole (Protonix Tab) 40 mg DAILY@06 PO Last administered on 07/28/18 05:34; Admin Dose 40 MG; Start 07/28/18 at 06:00 Miscellaneous Information (*Rx Drug Level Order Reminder*) 1 ONCE ONCE XX ; Start 07/28/18 at 17:00; Stop 07/28/18 at 17:01 ROBERTO DUKES Jul 28, 2018 10:48
[2018-07-28] MEDS ORDERED: LIDOCAINE 1% (MPF) 30 ML INJ INJ ONE (11:30)
[2018-07-28] MEDS ORDERED: morphine 2 MG INJ IV STA (11:34)
[2018-07-28] MEDS ORDERED: LORAZEPAM 2 MG INJ IV ONE (12:00)
[2018-07-28] MEDS ORDERED: morphine 4 MG/ML VIAL IV SCH (12:00)
--- NOTE | 2018-07-28 12:10 | CONS ---
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 - Bacteremia d/t 07/26/18 prelim Staph Aureus - s/p prosthetic R hip infection due to MSSA, s/p aspiration 12/25/2017; ESR 130 at that time, culture grew MSSA - s/p R hip irrigation, debridement, head and liner exchange 12/26/2017; intra- operative culture grew MSSA - OA of b/l hip - h/o R total hip replacement 08/27/2017 - DJD - Obesity - Hypothyroidism - Anemia - "Weakness" with oxacillin, without rash, dyspnea, swelling, GI Sx. Tolerates cefazolin - ESR 128 Recommendations: - Pending results: blood cultures x2 07/26/18 (prelim - Staph Aureus both bottles), Repeat blood cultures x2 07/27/18 (Pending 24 hour result - asked NIYAH Yanez to call me with the 24 hour result) - We recommend continuing IV vancomycin and cefepime (07/26/2017-); will adjust her antibiotic based on the culture results and her clinical status. - Tests to be done: diagnostic arthrocentesis (if sufficient joint effusion is found) - Ordered to be done during procedure today: fluid cell count, crystals, culture, and gram stain - F/u Echo results when available Management was d/w patient, NIYAH Yanez, Ortho DEJA Shelley, and with Dr. Hendrickson Thank you Addendum 07/28/18 @ 2113: - Checked micros now remotely and note repeat blood cultures from 07/27/18 showing gram positive cocci x1 bottle. - Ordered repeat blood cx x2 15 min apart and cbc for am. D/w Dr. Hendrickson. Thank you Result Diagram: 07/28/18 0429 07/28/18 042 Results 24hrs Laboratory Tests Test 07/28/18 04:29 White Blood Count 6.9 Red Blood Count 2.89 L Hemoglobin 8.2 L Hematocrit 25.9 L Mean Corpuscular Volume 89.6 Mean Corpuscular Hemoglobin 28.4 L Mean Corpuscular Hemoglobin Concent 31.7 L Red Cell Distribution Width 14.2 Platelet Count 307 Mean Platelet Volume 9.3 Immature Granulocytes % 2.300 H Neutrophils % 70.6 Lymphocytes % 14.3 L Monocytes % 11.8 H Eosinophils % 0.6 Basophils % 0.4 Nucleated Red Blood Cells % 0.0 Immature Granulocytes # 0.160 H Neutrophils # 4.9 Lymphocytes # 1.0 Monocytes # 0.8 Eosinophils # 0.0 Basophils # 0.0 Nucleated Red Blood Cells # 0.0 Sodium Level 138 Potassium Level 3.9 Chloride Level 106 Carbon Dioxide Level 24 Anion Gap 8 Blood Urea Nitrogen 15 Creatinine 0.68 Est Glomerular Filtrat Rate mL/min > 60 Glucose Level 104 Calcium Level 9.0 Total Bilirubin 0.0 L Direct Bilirubin 0.00 Indirect Bilirubin 0.0 Aspartate Amino Transf (AST/SGOT) 29 Alanine Aminotransferase (ALT/SGPT) 22 Alkaline Phosphatase 85 Total Protein 6.8 Albumin 3.3 Globulin 3.50 H Albumin/Globulin Ratio 0.94 Consultation Date/Type/Reason Admit Date/Time Jul 26, 2018 at 21:18 Initial Consult Date 07/26/18 Type of Consult ID Requesting Provider: LISA RUIZ 24 HR Interval Summary Free Text/Dictation Per d/w patient, she is still having R hip pain, and she states her Right knee feels "bruised." Still denies redness or swelling. Denies feelings of fevers, chills, night sweats, sob, cp, palpitations, n/v/d, dysuria, pruritis, or rash. D/w patient's RN re: blood culture results, planned procedure, and the orders I input for during IR procedure. Patient had Echo done this am, results pending. Exam/Review of Systems Vital Signs Vitals Vital Signs Date Temp Pulse Resp B/P (MAP) Pulse Ox O2 O2 Flow FiO2 Time Delivery Rate 07/28/18 98.5 89 18 135/72 100 Room Air 07:21 (93) Intake and Output 07/27/18 07/27/18 07/28/18 1515:00 23:00 07:00 IntakeIntake Total 1050 ml 1133 ml OutputOutput Total 4 ml BalanceBalance 1046 ml 1133 ml Allergies Coded Allergies oxacillin (Verified Allergy, Severe, 07/26/18) dizziness and weakness of extremities. Pt tolerates cefazolin. Exam Constitutional: alert, oriented, well developed, obese Psych: no complaints, nl mood/affect Head: normocephalic, atraumatic Eyes: nl conjunctiva, nl lids, nl sclera ENMT: nl external ears & nose, nl nasal mucosa & septum, mucosa pink and moist (no thrush) Neck: supple, non-tender Respiratory: clear to auscultation, normal air movement Cardiovascular: regular rate and rhythm, nl pulses Gastrointestinal: soft, non-tender, bowel sounds (normoactive ) Musculoskeletal: nl extremities to inspection Extremities: normal pulses Neurological: GERIATRIC PSYCHIATRIST II-XII intact, nl mental status, nl speech, nl strength Skin: nl turgor, other (Right hip feels slightly warmer to touch than the rest of her extremities.); No rash or lesions Medications Medications Current Medications Vancomycin HCl (Vanco Iv Per Pharmacy) VANCOMYCIN PER PHARMACY PER PROTOCOL XX ; Start 07/26/18 at 21:30 Sodium Chloride 1,000 ml @ 40 mls/hr Q24H IV Last administered on 07/28/18at 05:44; Admin Dose 40 MLS/HR; Start 07/26/18 at 21:34 IV Flush (NS 3 ml) 3 ml PER PROTOCOL IV ; Start 07/26/18 at 22:00 Ondansetron HCl (Zofran Inj) 4 mg Q6H PRN IV NAUSEA AND/OR VOMITING; Start 07/15 09/02 at 22:00 Acetaminophen (Tylenol Tab) 650 mg Q6H PRN PO PAIN LEVEL 1-3 OR FEVER Last administered on 07/27/18at 00:05; Admin Dose 650 MG; Start 07/26/18 at 22:00 Docusate Sodium (Colace) 100 mg Q12H PRN PO CONSTIPATION; Start 07/26/18 at 22:00 Bisacodyl (Dulcolax) 5 mg DAILY PRN PO CONSTIPATION; Start 07/26/18 at 22:00 Diphenhydramine HCl (Benadryl) 50 mg Q6H PRN PO ITCHING Last administered on 07/27/18at 05:02; Admin Dose 50 MG; Start 07/26/18 at 23:30 Morphine Sulfate (morphine SULFATE (PF)) 2 mg Q4H PRN IV PAIN LEVEL 7-10 Last administered on 07/28/18at 09:26; Admin Dose 2 MG; Start 07/26/18 at 23:36 Cefepime HCl 50 ml @ 100 mls/hr Q8H IVPB Last administered on 07/28/18at 08:09; Admin Dose 100 MLS/HR; Start 07/27/18 at 09:00 Levothyroxine Sodium (Synthroid) 50 mcg BEFORE BREAKFAST PO Last administered on 07/28/18at 05:34; Admin Dose 50 MCG; Start 07/27/18 at 07:00 Acetaminophen/ Hydrocodone Bitart (Ferdinand (10/325)) 1 tab Q6H PRN PO MODERATE PAIN LEVEL 4-6 Last administered on 07/28/18at 08:09; Admin Dose 1 TAB; Start 07/27/18 at 04:30 Duloxetine HCl (Cymbalta) 30 mg BID PO Last administered on 07/28/18at 08:09; Admin Dose 30 MG; Start 07/27/18 at 09:00 Vancomycin HCl 1.5 gm/Sodium Chloride 250 ml @ 83.333 mls/ hr Q12H IVPB Last administered on 07/28/18at 05:34; Admin Dose 83.333 MLS/HR; Start 07/27/18 at 18:00 Celecoxib (Celebrex) 100 mg BID PO Last administered on 07/28/18at 08:09; Admin Dose 100 MG; Start 07/27/18 at 21:00 Ferric Sodium Gluconate Complex 125 mg/Sodium Chloride 100 ml @ 100 mls/hr DAILY@1300 IVPB Last administered on 07/27/18at 14:08; Admin Dose 100 MLS/HR; Start 07/27/18 at 13:00; Stop 07/29/18 at 13:59 Pantoprazole (Protonix Tab) 40 mg DAILY@06 PO Last administered on 07/28/18at 05:34; Admin Dose 40 MG; Start 07/28/18 at 06:00 Miscellaneous Information (*Rx Drug Level Order Reminder*) 1 ONCE ONCE XX ; Start 07/28/18 at 17:00; Stop 07/28/18 at 17:01 Lorazepam (Ativan) 1 mg ONCE ONCE IV ; Start 07/28/18 at 12:00; Stop 07/28/18 at 12:01 Morphine Sulfate (morphine) 2 mg ONCE IV ; Start 07/28/18 at 12:00; Stop 07/28/18 at 12:01 Imaging Imaging No new imaging ALEXIADIS,LOI AERIAL PHOTOGRAMMETRIST Jul 28, 2018 12:10
[2018-07-28] MEDS: SOD FERRIC GLUC COMPLX 125 MG in SOD CHLORIDE 0.9% 100 ML IVPB SCH (13:46)
[2018-07-28] MEDS ORDERED: LIDOCAINE 1% (MPF) 5 ML VIAL ONE (14:01)
--- NOTE | 2018-07-28 14:24 | RADRPT ---
Echocardiogram Report Patient Name: LUIS GOOD Gender: Female Date: 1960 Study Date: 28-Jul-2018 Program Support Specialist: TB Location: [facility] Ref. Physician: LISA URIZ Quality: Adequate Procedures: Transthoracic echocardiogram with complete 2D, M-Mode, and doppler examination. Indications: Evaluate for Endocarditis. Sepsis. 2D/M Mode Doppler Measurement Value Normal Ranges Measurement Value Normal Ranges LVIDd 2D 4.7 3.5 - 5.6 cm AV Mean Harish 1.2 m/sec LVIDs 2D 3.3 2.1 - 4.1 cm AV Mean PG 7.0 mmHg LVPWd 2D 1.0 0.6 - 1.1 cm AV Peak Harish 1.7 m/sec IVSd 2D 1.0 0.6 - 1.1 cm AV Peak PG 11.0 mmHg AoR Diam 2D 2.4 2.0 - 3.7 cm AV VTI 34.4 cm LA/Ao 2D 2 0 - 1 LVOT Mean Harish 0.8 m/sec EF 2D 55.0 50.0 - 65.0 % LVOT Mean PG 3.0 mmHg LA Dimen 2D 3.7 2.3 - 4.0 cm LVOT Peak Harish 1.2 m/sec IVC Diam 2.2 1.2 - 2.0 LVOT Peak PG 6.0 mmHg MV E Peak Harish 1.1 m/sec MV A Peak Harish 0.9 m/sec MV E/A 1.1 MV PHT 60.0 msec MV Decel Time 204 msec MV Decel Catron 5 Lat E` Harish 0.1 m/sec Lateral E/E` 8.8 Med E` Harish 0.1 m/sec MV E/A 1.1 MV PHT 60.0 msec MVA PHT 3.7 cm2 TR Peak Harish 2.5 m/sec TR Peak PG 25.0 mmHg RVSP 28.0 mmHg RA Pressure 3.0 Findings Left Ventricle: Ejection fraction is visually estimated at 55 %. Tissue Doppler/Mitral Doppler indices are consistent with impaired relaxation (Stage I diastolic dysfunction). Right Ventricle: Normal right ventricular size. Normal right ventricular systolic function. Left Atrium: The left atrium is normal in size. Right Atrium: The right atrium is normal in size. RA Pressure=3. Mitral Valve: Normal appearance and function of the mitral valve with trace physiologic regurgitation. Aortic Valve: No hemodynamically significant aortic stenosis by doppler. Trileaflet aortic valve. No aortic regurgitation. Tricuspid Valve: Normal appearance of the tricuspid valve. Normal right ventricular systolic pressure. Tricuspid valve not well visualized. Estimated peak PA systolic pressure 28 mmHg. There is trace to mild tricuspid regurgitation. Pulmonic Valve: Normal pulmonic valve appearance. Pulmonic valve not well visualized. Pericardium: Trivial pericardial effusion. Aorta: Normal aortic root. IVC: Dilated IVC with respiratory collapse consistent with elevated right atrial pressure. Conclusions Ejection fraction is visually estimated at 55 %. Tissue Doppler/Mitral Doppler indices are consistent with impaired relaxation (Stage I diastolic dysfunction). Normal appearance and function of the mitral valve with trace physiologic regurgitation. No hemodynamically significant aortic stenosis by doppler. Trileaflet aortic valve. No aortic regurgitation. Normal appearance of the tricuspid valve. Normal right ventricular systolic pressure. Tricuspid valve not well visualized. Estimated peak PA systolic pressure 28 mmHg. There is trace to mild tricuspid regurgitation. Electronically Signed By: Awais Mohamud 28-Jul-2018 14:23:44 -0800 Patient Name: LUIS GOOD Study Date: 28-Jul-2018 [id number]
[2018-07-28 15:14] VITALS: BP 128/66; PULSE 95; RESP 18
[2018-07-28 19:30] VITALS: BP 132/76; PULSE 92; RESP 18
[2018-07-29] MEDS: CEFEPIME 2GM/50 ML (PMX) 50 ML IVPB SCH ×2 (01:10→10:00)
[2018-07-29] MEDS: morphine SULFATE/PF (2 MG/2 ML) SYG IV PRN (01:10)
[2018-07-29 02:02] VITALS: BP 136/77; PULSE 90; RESP 18
[2018-07-29] MEDS: VANCOMYCIN HCL 1.5 GM in SOD CHLORIDE 0.9% 250 ML IVPB SCH (06:48)
[2018-07-29] MEDS: LEVOTHYROXINE 50 MCG TAB PO SCH (06:50)
[2018-07-29] MEDS: PANTOPRAZOLE (EC) 40 MG TAB PO SCH (06:50)
[2018-07-29] MEDS: HYDROCODONE/APAP (10/325) TAB PO PRN ×2 (06:51→22:01)
[2018-07-29 07:17] VITALS: BP 128/68; PULSE 92; RESP 19
[2018-07-29] MEDS: DULOXETINE 30 MG CAP DR PO SCH ×2 (09:09→21:53)
[2018-07-29] MEDS: CELECOXIB 100 MG CAP PO SCH ×2 (09:09→21:53)
--- NOTE | 2018-07-29 11:48 | CONS ---
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 and bacteremia - fever and tachycardia resolving - recurrent prosthetic R hip infection, s/p R hip aspiration with ~ 2 cc of cloudy yellow fluid aspirated on 07/28/2018; prelim cx staph aureus - bacteremia on 07/26/18 and 08/14/18 d/t MSSA; TTE on 07/27/18 does not mention thrombus - s/p prosthetic R hip infection due to MSSA, s/p aspiration 12/25/2017; ESR 130 at that time, culture grew MSSA - s/p R hip irrigation, debridement, head and liner exchange 12/26/2017; intra- operative culture grew MSSA (s/p cefazolin x6 weeks then po cephalexin x3 months) - OA of b/l hip - h/o R total hip replacement 08/27/2017 - DJD - Obesity - Hypothyroidism - Anemia - "Weakness" with oxacillin, without rash, dyspnea, swelling, GI Sx. Tolerates cefazolin - ESR 128 Recommendations: - Pending results: blood cultures x2 from this AM, R hip fluid cx (prelim staph aureus) - DC IV vancomycin and cefepime (07/26/2018-) - Start Cefazolin 2 gm IV q8 hours (07/29/2018-) Management was d/w patient, NIYAH Mckeon, and with Dr. Hendrickson Result Diagram: 07/29/18 0443 07/28/18 0429 Results 24hrs Laboratory Tests Test 07/28/18 14:45 07/28/18 17:28 07/29/18 04:43 Synovial Fluid Source HIP FLUID Synovial Fluid Color YELLOW Synovial Fluid Appearance CLOUDY Synovial Fluid Volume 1.3 Synovial Fluid WBC 73126 H Synovial Fluid Polynuclear WBCs 91.0 H % Synovial Fluid Mononuclear WBCs 9.0 % Synovial Fluid Crystals NO CRYSTALS SEEN Vancomycin Level Trough 13.1 White Blood Count 5.8 Red Blood Count 2.76 L Hemoglobin 7.9 L Hematocrit 24.4 L Mean Corpuscular Volume 88.4 Mean Corpuscular Hemoglobin 28.6 L Mean Corpuscular 32.4 Hemoglobin Concent Red Cell Distribution Width 14.3 Platelet Count 272 Mean Platelet Volume 8.8 Immature Granulocytes % 4.600 H Neutrophils % 60.1 Lymphocytes % 19.2 Monocytes % 13.0 H Eosinophils % 2.6 Basophils % 0.5 Nucleated Red Blood Cells % 0.0 Immature Granulocytes # 0.270 H Neutrophils # 3.5 Lymphocytes # 1.1 Monocytes # 0.8 Eosinophils # 0.2 Basophils # 0.0 Nucleated Red Blood Cells # 0.0 Consultation Date/Type/Reason Admit Date/Time Jul 26, 2018 at 21:18 Initial Consult Date 07/26/18 Type of Consult Infectious Disease Requesting Provider: LISA RUIZ 24 HR Interval Summary Free Text/Dictation S/p right hip aspiration with ~ 2 cc of cloudy yellow fluid aspirated yesterday and prelim cx growing Staph Aureus. Blood cx from 07/27/18 growing MSSA in 1 of 2 sets and repeat blood cx were sent this AM. TTE does not mention thrombus. Pt reports R groin/hip pain is improved and no longer TTP. Has mild pain with exertion rating 5/10. No fever, chills, abd pain, n/v/d, dysuria. Exam/Review of Systems Vital Signs Vitals Vital Signs Date Temp Pulse Resp B/P (MAP) Pulse Ox O2 O2 Flow FiO2 Time Delivery Rate 07/29/18 98.2 92 19 128/68 96 07:17 (88) 07/29/18 Room Air 02:02 Intake and Output 07/28/18 07/28/18 07/29/18 1515:00 23:00 07:00 IntakeIntake Total 210 ml 950 ml 500 ml BalanceBalance 210 ml 950 ml 500 ml Exam Constitutional: alert, oriented, well developed, obese Psych: no complaints, nl mood/affect Head: normocephalic, atraumatic Eyes: nl conjunctiva, nl lids, nl sclera ENMT: nl external ears & nose, nl nasal mucosa & septum Neck: supple Respiratory: clear to auscultation, normal air movement Cardiovascular: regular rate and rhythm, nl pulses; No edema Gastrointestinal: soft, non-tender; No distended Musculoskeletal: nl extremities to inspection, other (R groin area no longer TTP per tp) Extremities: normal pulses; No edema Neurological: [employer] II-XII intact, nl mental status, nl speech Skin: nl turgor; No rash or lesions Medications Medications Current Medications Vancomycin HCl (Vanco Iv Per Pharmacy) VANCOMYCIN PER PHARMACY PER PROTOCOL XX ; Start 07/26/18 at 21:30 Sodium Chloride 1,000 ml @ 40 mls/hr Q24H IV Last administered on 07/28/18at 05:44; Admin Dose 40 MLS/HR; Start 07/26/18 at 21:34 IV Flush (NS 3 ml) 3 ml PER PROTOCOL IV ; Start 07/26/18 at 22:00 Ondansetron HCl (Zofran Inj) 4 mg Q6H PRN IV NAUSEA AND/OR VOMITING; Start 07/26/18 at 22:00 Acetaminophen (Tylenol Tab) 650 mg Q6H PRN PO PAIN LEVEL 1-3 OR FEVER Last administered on 07/27/18at 00:05; Admin Dose 650 MG; Start 07/26/18 at 22:00 Docusate Sodium (Colace) 100 mg Q12H PRN PO CONSTIPATION; Start 07/26/18 at 22:00 Bisacodyl (Dulcolax) 5 mg DAILY PRN PO CONSTIPATION; Start 07/26/18 at 22:00 Diphenhydramine HCl (Benadryl) 50 mg Q6H PRN PO ITCHING Last administered on at 05:02; Admin Dose 50 MG; Start 07/26/18 at 23:30 Morphine Sulfate (morphine SULFATE (PF)) 2 mg Q4H PRN IV PAIN LEVEL 7-10 Last administered on 07/29/18at 01:10; Admin Dose 2 MG; Start 07/26/18 at 23:36 Cefepime HCl 50 ml @ 100 mls/hr Q8H IVPB Last administered on 07/29/18at 10:00; Admin Dose 100 MLS/HR; Start 07/27/18 at 09:00 Levothyroxine Sodium (Synthroid) 50 mcg BEFORE BREAKFAST PO Last administered on 07/29/18 06:50; Admin Dose 50 MCG; Start 07/27/18 at 07:00 Acetaminophen/ Hydrocodone Bitart ([place] (10/325)) 1 tab Q6H PRN PO MODERATE PAIN LEVEL 4-6 Last administered on 07/29/18at 06:51; Admin Dose 1 TAB; Start 07/27/18 at 04:30 Duloxetine HCl (Cymbalta) 30 mg BID PO Last administered on 07/29/18at 09:09; Admin Dose 30 MG; Start 07/27/18 at 09:00 Vancomycin HCl 1.5 gm/Sodium Chloride 250 ml @ 83.333 mls/ hr Q12H IVPB Last administered on 07/29/18at 06:48; Admin Dose 83.333 MLS/HR; Start 07/27/18 at 18:00 Celecoxib (Celebrex) 100 mg BID PO Last administered on 07/29/18at 09:09; Admin Dose 100 MG; Start 07/27/18 at 21:00 Ferric Sodium Gluconate Complex 125 mg/Sodium Chloride 100 ml @ 100 mls/hr DAILY@1300 IVPB Last administered on 07/28/18at 13:46; Admin Dose 100 MLS/HR; Start 07/27/18 at 13:00; Stop 07/29/18 at 13:59 Pantoprazole (Protonix Tab) 40 mg DAILY@06 PO Last administered on 07/29/18at 06:50; Admin Dose 40 MG; Start 07/28/18 at 06:00 Imaging Imaging 2D Echo 07/27/2018: Ejection fraction is visually estimated at 55 %. Tissue Doppler/Mitral Doppler indices are consistent with impaired relaxation (Stage I diastolic dysfunction). Normal appearance and function of the mitral valve with trace physiologic regurgitation. No hemodynamically significant aortic stenosis by doppler. Trileaflet aortic valve. No aortic regurgitation. Normal appearance of the tricuspid valve. Normal right ventricular systolic pressure. Tricuspid valve not well visualized. Estimated peak PA systolic pressure 28 mmHg. There is trace to mild tricuspid regurgitation. EDGAR SANTOS NP Jul 29, 2018 11:48
[2018-07-29] MEDS ORDERED: VANCOMYCIN IV PER PHARMACY XX SCH (13:00)
[2018-07-29] MEDS: SOD FERRIC GLUC COMPLX 125 MG in SOD CHLORIDE 0.9% 100 ML IVPB SCH (13:07)
--- NOTE | 2018-07-29 13:10 | PN ---
Date/Time of Note Date/Time of Note DATE: 07/29/18 TIME: 13:05 Assessment/Plan VTE Prophylaxis Risk score (from Nsg)>0 risk: 5 Pharmacological prophylaxis: LMWH Lines/Catheters IV Catheter Type (from Nrsg): Peripheral IV Urinary Cath still in place: No Assessment/Plan Result Diagram: 07/29/18 0443 07/28/18 0429 Results 24hrs Laboratory Tests Test 07/28/18 14:45 07/28/18 17:28 07/29/18 04:43 Synovial Fluid Source HIP FLUID Synovial Fluid Color YELLOW Synovial Fluid Appearance CLOUDY Synovial Fluid Volume 1.3 Synovial Fluid WBC 13137 H Synovial Fluid Polynuclear WBCs 91.0 H % Synovial Fluid Mononuclear WBCs 9.0 % Synovial Fluid Crystals NO CRYSTALS SEEN Vancomycin Level Trough 13.1 White Blood Count 5.8 Red Blood Count 2.76 L Hemoglobin 7.9 L Hematocrit 24.4 L Mean Corpuscular Volume 88.4 Mean Corpuscular Hemoglobin 28.6 L Mean Corpuscular 32.4 Hemoglobin Concent Red Cell Distribution Width 14.3 Platelet Count 272 Mean Platelet Volume 8.8 Immature Granulocytes % 4.600 H Neutrophils % 60.1 Lymphocytes % 19.2 Monocytes % 13.0 H Eosinophils % 2.6 Basophils % 0.5 Nucleated Red Blood Cells % 0.0 Immature Granulocytes # 0.270 H Neutrophils # 3.5 Lymphocytes # 1.1 Monocytes # 0.8 Eosinophils # 0.2 Basophils # 0.0 Nucleated Red Blood Cells # 0.0 Subjective 24 Hr Interval Summary Free Text/Dictation subjective: no new complaints we discussed results from hip aspiration cultures Objective: General: A&O x3, answering questions appropriately HEENT: NC/ AT. PERRL. EOM intact Neck: supple CVS: S1, S2, RRR. no murmurs. no pain on chest wall palpation Lungs: CTA b/l. no wheezing or rhonchi Abd: soft, nontender, +BS Ext: moving all extremities skin: no rashes assessment and plan: 57-year-old female who presented to our emergency room with severe pain in her right hip and was found to be febrile with sepsis currently managed as follows: 1. Sepsis 2/2 Staphylococcus bacteremia from ?recurrent septic joint with prosthesis 2. Status post right total hip arthroplasty with concern for septic joint causing bacteremia -- s/p prosthetic R hip infection due to MSSA, s/p aspiration 12/25/2017; ESR 130 at that time, culture grew MSSA -- s/p R hip irrigation, debridement, head and liner exchange 12/26/2017; intra-operative culture grew MSSA, treated for 3 months -- s/p IR guided aspiration 07/28/18, cultures growing MSSA again --2D echo shows no signs of vegetation on TTE 3. Iron deficiency anemia - s/p 3 days of IV iron replacement therapy 4. History of depression -stable on home meds 5. Hypothyroidism -TSH showing good control, continue synthroid at home dose 6. Constipation 7. Chronic osteoarthritis Dispo: seems to be having persistent infection despite aggressive therapy, Ortho has been notified of results, await plan and recommendations continue abx therapy Blood cultures persistently positive continue supportive care appreciate ID input . Immunologic: urticaria Exam/Review of Systems Vital Signs Vitals Vital Signs Date Temp Pulse Resp B/P (MAP) Pulse Ox O2 O2 Flow FiO2 Time Delivery Rate 07/29/18 98.2 92 19 128/68 96 07:17 (88) 07/29/18 Room Air 02:02 Intake and Output 07/28/18 07/28/18 07/29/18 1515:00 23:00 07:00 IntakeIntake Total 210 ml 950 ml 500 ml BalanceBalance 210 ml 950 ml 500 ml Medications Medications Current Medications Vancomycin HCl (Vanco Iv Per Pharmacy) VANCOMYCIN PER PHARMACY PER PROTOCOL XX ; Start 07/26/18 at 21:30 Sodium Chloride 1,000 ml @ 40 mls/hr Q24H IV Last administered on 07/28/18at 05:44; Admin Dose 40 MLS/HR; Start 07/26/18 at 21:34 IV Flush (NS 3 ml) 3 ml PER PROTOCOL IV ; Start 07/26/18 at 22:00 Ondansetron HCl (Zofran Inj) 4 mg Q6H PRN IV NAUSEA AND/OR VOMITING; Start 07/26/18 at 22:00 Acetaminophen (Tylenol Tab) 650 mg Q6H PRN PO PAIN LEVEL 1-3 OR FEVER Last administered on 07/27/18at 00:05; Admin Dose 650 MG; Start 07/26/18 at 22:00 Docusate Sodium (Colace) 100 mg Q12H PRN PO CONSTIPATION; Start 07/26/18 at 22:00 Bisacodyl (Dulcolax) 5 mg DAILY PRN PO CONSTIPATION; Start 07/26/18 at 22:00 Diphenhydramine HCl (Benadryl) 50 mg Q6H PRN PO ITCHING Last administered on 07/27/18at 05:02; Admin Dose 50 MG; Start 07/26/18 at 23:30 Morphine Sulfate (morphine SULFATE (PF)) 2 mg Q4H PRN IV PAIN LEVEL 7-10 Last administered on 07/29/18 01:10; Admin Dose 2 MG; Start 07/26/18 at 23:36 Cefepime HCl 50 ml @ 100 mls/hr Q8H IVPB Last administered on 07/29/18 10:00; Admin Dose 100 MLS/HR; Start 07/27/18 at 09:00 Levothyroxine Sodium (Synthroid) 50 mcg BEFORE BREAKFAST PO Last administered on 07/29/18 06:50; Admin Dose 50 MCG; Start 07/27/18 at 07:00 Acetaminophen/ Hydrocodone Bitart ([place] (10/325)) 1 tab Q6H PRN PO MODERATE PAIN LEVEL 4-6 Last administered on 07/29/18 06:51; Admin Dose 1 TAB; Start 07/27/18 at 04:30 Duloxetine HCl (Cymbalta) 30 mg BID PO Last administered on 07/29/18at 09:09; Admin Dose 30 MG; Start 07/27/18 at 09:00 Vancomycin HCl 1.5 gm/Sodium Chloride 250 ml @ 83.333 mls/ hr Q12H IVPB Last administered on 07/29/18at 06:48; Admin Dose 83.333 MLS/HR; Start 07/27/18 at 18:00 Celecoxib (Celebrex) 100 mg BID PO Last administered on 07/29/18 09:09; Admin Dose 100 MG; Start 07/27/18 at 21:00 Ferric Sodium Gluconate Complex 125 mg/Sodium Chloride 100 ml @ 100 mls/hr DAILY@1300 IVPB Last administered on 07/28/18at 13:46; Admin Dose 100 MLS/HR; Start 07/27/18 at 13:00; Stop 07/29/18 at 13:59 Pantoprazole (Protonix Tab) 40 mg DAILY@06 PO Last administered on 1/15/19at 06:50; Admin Dose 40 MG; Start 07/28/18 at 06:00 ROBERTO DUKES Jul 29, 2018 13:10
[2018-07-29] MEDS: CEFAZOLIN 2 GM/50 ML (PMX) 50 ML IVPB SCH ×2 (14:39→21:54)
--- NOTE | 2018-07-29 16:13 | PN ---
Date/Time of Note Date/Time of Note DATE: 07/29/18 TIME: 16:08 Assessment/Plan VTE Prophylaxis Risk score (from Ns)>0 risk: 5 SCD applied (from Ns): No SCD contraindicated: low risk/ambulating Pharmacological prophylaxis: NA/contraindicated Pharm contraindication: low risk/ambulating Lines/Catheters IV C[facility] Type [facility]from [facility] Peripheral IV Urinary Cath still in place: No Assessment/Plan Assessment/Plan * Discussed with patient today. Patient is aware that she will need to step total hip revision. Specific details of this process explained with patient and patient is aware and states understanding. * Surgeon is currently out of town but will be back in 2 days. Patient is stable and there is no true emergency in regards to surgery but she will be scheduled for first stage of two-step process. * Continue monitoring with hospitalist. Patient will also continue monitoring with infectious disease as she is on rounds of IV antibiotics for infection control. Result Diagram: 07/29/18 0443 07/28/18 0429 Results 24hrs Laboratory Tests Test 07/28/18 17:28 07/29/18 04:43 Vancomycin Level Trough 13.1 White Blood Count 5.8 Red Blood Count 2.76 L Hemoglobin 7.9 L Hematocrit 24.4 L Mean Corpuscular Volume 88.4 Mean Corpuscular Hemoglobin 28.6 L Mean Corpuscular Hemoglobin Concent 32.4 Red Cell Distribution Width 14.3 Platelet Count 272 Mean Platelet Volume 8.8 Immature Granulocytes % 4.600 H Neutrophils % 60.1 Lymphocytes % 19.2 Monocytes % 13.0 H Eosinophils % 2.6 Basophils % 0.5 Nucleated Red Blood Cells % 0.0 Immature Granulocytes # 0.270 H Neutrophils # 3.5 Lymphocytes # 1.1 Monocytes # 0.8 Eosinophils # 0.2 Basophils # 0.0 Nucleated Red Blood Cells # 0.0 Subjective 24 Hr Interval Summary Free Text/Dictation 57-year-old female admitted for right hip infection status post total hip arthroplasty and subsequent revision. Joint aspiration performed yesterday which comes back positive for Staphylococcus aureus. Patient having pain to the joint. No erythema or redness superficially. Denies any fever, chills or malaise. Currently resting comfortably in bed. Exam/Review of Systems Vital Signs Vitals Vital Signs Date Temp Pulse Resp B/P (MAP) Pulse Ox O2 O2 Flow FiO2 Time Delivery Rate 1/15/19 98.2 92 19 128/68 96 07:17 (88) 07/29/18 Room Air 02:02 Intake and Output 07/28/18 07/28/18 07/29/18 1515:00 23:00 07:00 IntakeIntake Total 210 ml 950 ml 500 ml BalanceBalance 210 ml 950 ml 500 ml Exam -Well-healed surgical scar. No erythema or induration superficially. Patient does have pain complaints deep to the groin. -Thigh soft -5/5 Quadriceps, Tibialis Anterior, EHL Gastrocnemius/Soleus and Peroneals -Normal Sensation -Palpable DP/PT, Capillary Refill <2 secs -No Distal Edema -Negative Daljit Sign/No calf pain -Toes Freely Movable Constitutional: alert, oriented, well developed Medications Medications Current Medications Sodium Chloride 1,000 ml @ 40 mls/hr Q24H IV Last administered on 07/28/18at 05:44; Admin Dose 40 MLS/HR; Start 07/26/18 at 21:34 IV Flush (NS 3 ml) 3 ml PER PROTOCOL IV ; Start 07/26/18 at 22:00 Ondansetron HCl (Zofran Inj) 4 mg Q6H PRN IV NAUSEA AND/OR VOMITING; Start 07/26/18 at 22:00 Acetaminophen (Tylenol Tab) 650 mg Q6H PRN PO PAIN LEVEL 1-3 OR FEVER Last administered on 07/27/18at 00:05; Admin Dose 650 MG; Start 07/26/18 at 22:00 Docusate Sodium (Colace) 100 mg Q12H PRN PO CONSTIPATION; Start 07/26/18 at 22:00 Bisacodyl (Dulcolax) 5 mg DAILY PRN PO CONSTIPATION; Start 07/26/18 at 22:00 Diphenhydramine HCl (Benadryl) 50 mg Q6H PRN PO ITCHING Last administered on 07/27/18at 05:02; Admin Dose 50 MG; Start 07/26/18 at 23:30 Morphine Sulfate (morphine SULFATE (PF)) 2 mg Q4H PRN IV PAIN LEVEL 7-10 Last administered on 07/29/18at 01:10; Admin Dose 2 MG; Start 07/26/18 at 23:36 Levothyroxine Sodium (Synthroid) 50 mcg BEFORE BREAKFAST PO Last administered on 07/29/18 06:50; Admin Dose 50 MCG; Start 07/27/18 at 07:00 Acetaminophen/ Hydrocodone Bitart ([place] (10/325)) 1 tab Q6H PRN PO MODERATE PAIN LEVEL 4-6 Last administered on 07/29/18 06:51; Admin Dose 1 TAB; Start 07/27/18 at 04:30 Duloxetine HCl (Cymbalta) 30 mg BID PO Last administered on 07/29/18 09:09; Admin Dose 30 MG; Start 07/27/18 at 09:00 Celecoxib (Celebrex) 100 mg BID PO Last administered on 07/29/18 09:09; Admin Dose 100 MG; Start 07/27/18 at 21:00 Pantoprazole (Protonix Tab) 40 mg DAILY@06 PO Last administered on 07/29/18 06:50; Admin Dose 40 MG; Start 07/28/18 at 06:00 Cefazolin Sodium/ Dextrose 50 ml @ 100 mls/hr Q8 IVPB Last administered on 07/29/18at 14:39; Admin Dose 100 MLS/HR; Start 07/29/18 at 14:00 SHANNAN ARVIZU PA-C Jul 29, 2018 16:13
[2018-07-29 16:29] VITALS: BP 121/62; PULSE 88; RESP 18
[2018-07-29] MEDS ORDERED: morphine LIQ (10 MG/5 ML) CUP PO PRN (17:00)
[2018-07-29 19:43] VITALS: BP 137/80; PULSE 87; RESP 18
[2018-07-29] MEDS: DOCUSATE SODIUM 100 MG CAP PO SCH (21:53)
[2018-07-30] MEDS: SOD CHLORIDE 0.9% 1,000 ML IV SCH ×2 (02:07→20:58)
[2018-07-30] MEDS: LEVOTHYROXINE 50 MCG TAB PO SCH (06:28)
[2018-07-30] MEDS: PANTOPRAZOLE (EC) 40 MG TAB PO SCH (06:28)
[2018-07-30] MEDS: CEFAZOLIN 2 GM/50 ML (PMX) 50 ML IVPB SCH ×3 (06:29→20:58)
[2018-07-30 07:45] VITALS: BP 149/81; PULSE 83; RESP 17
[2018-07-30] MEDS ORDERED: ENOXAPARIN 40 MG/0.4 ML SYG SC ONE (07:56)
[2018-07-30] MEDS: DOCUSATE SODIUM 100 MG CAP PO SCH ×2 (08:03→20:57)
[2018-07-30] MEDS: DULOXETINE 30 MG CAP DR PO SCH ×2 (08:03→20:57)
[2018-07-30] MEDS: CELECOXIB 100 MG CAP PO SCH ×2 (08:03→20:57)
[2018-07-30] MEDS: ENOXAPARIN 40 MG/0.4 ML SYG SC SCH (08:07)
[2018-07-30] MEDS: POTASSIUM CHLORIDE (SR) 20 MEQ TAB PO SCH ×2 (13:03→16:46)
[2018-07-30 14:00] VITALS: BP 144/68; PULSE 63; RESP 17
--- NOTE | 2018-07-30 15:21 | CONS ---
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 - fever and tachycardia resolving - recurrent prosthetic R hip infection, s/p R hip aspiration with ~ 2 cc of cloudy yellow fluid aspirated on 07/28/2018; prelim cx staph aureus - bacteremia on 07/26/18 and 08/14/18 d/t MSSA; TTE on 07/27/18 does not mention thrombus - s/p prosthetic R hip infection due to MSSA, s/p aspiration 12/25/2017; ESR 130 at that time, culture grew MSSA - s/p R hip irrigation, debridement, head and liner exchange 12/26/2017; intra- operative culture grew MSSA (s/p cefazolin x6 weeks then po cephalexin x3 months) - OA of b/l hip - h/o R total hip replacement 08/27/2017 - DJD - Obesity - Hypothyroidism - Anemia - "Weakness" with oxacillin, without rash, dyspnea, swelling, GI Sx. Tolerates cefazolin - ESR 128 Recommendations: - cont. Cefazolin 2 gm IV q8 hours (07/29/2018-) - plan for surgical intervention noted Result Diagram: 07/30/18 0430 07/30/18 0430 Results 24hrs Laboratory Tests Test 07/30/18 04:30 White Blood Count 5.4 Red Blood Count 2.70 L Hemoglobin 7.6 L Hematocrit 23.6 L Mean Corpuscular Volume 87.4 Mean Corpuscular Hemoglobin 28.1 L Mean Corpuscular Hemoglobin Concent 32.2 Red Cell Distribution Width 14.2 Platelet Count 315 Mean Platelet Volume 9.2 Immature Granulocytes % 8.300 H Neutrophils % Segmented Neutrophils % (Manual) 62 Band Neutrophils % (Manual) 6 H Lymphocytes % Lymphocytes % (Manual) 14 L Monocytes % Monocytes % (Manual) 12 H Eosinophils % Eosinophils % (Manual) 3 Basophils % Metamyelocytes % (manual) 1 H Myelocytes % (Manual) 2 H Nucleated Red Blood Cells % 0.0 Immature Granulocytes # 0.450 H Neutrophils # Neutrophils # (Manual) 3.4 Band Neutrophils # 0.3 Lymphocytes (Manual) 0.7 L Lymphocytes # Monocytes # Monocytes # (Manual) 0.6 Eosinophils # Basophils # Metamyelocytes # 0.0 Myelocytes # 0.1 H Nucleated Red Blood Cells # Platelet Estimate NORMAL Giant Platelets 4 H Polychromasia 2+ Sodium Level 139 Potassium Level 3.1 L Chloride Level 107 Carbon Dioxide Level 27 Anion Gap 5 Blood Urea Nitrogen 11 Creatinine 0.75 Est Glomerular Filtrat Rate mL/min > 60 Glucose Level 103 Calcium Level 8.9 Magnesium Level 1.9 Consultation Date/Type/Reason Admit Date/Time Jul 26, 2018 at 21:18 Initial Consult Date 07/26/18 Requesting Provider: LISA RUIZ Exam/Review of Systems Vital Signs Vitals Vital Signs Date Temp Pulse Resp B/P (MAP) Pulse Ox O2 O2 Flow FiO2 Time Delivery Rate 07/30/18 98.0 83 17 149/81 96 07:45 (103) 07/29/18 Room Air 19:43 Intake and Output 07/29/18 07/29/18 07/30/18 1414:59 22:59 06:59 IntakeIntake Total 880 ml 580 ml 900 ml OutputOutput Total 620 ml 220 ml BalanceBalance 260 ml 360 ml 900 ml Exam Constitutional: alert, oriented, well developed Psych: no complaints, nl mood/affect Head: normocephalic, atraumatic Eyes: nl conjunctiva, EOMI, nl lids, nl sclera, PERRL ENMT: nl external ears & nose, nl lips & teeth, nl nasal mucosa & septum Neck: supple, non-tender Respiratory: clear to auscultation, normal air movement Cardiovascular: regular rate and rhythm, nl pulses Gastrointestinal: soft, nl liver, spleen, non-tender Skin: other (tender over right hip site) Medications Medications Current Medications Sodium Chloride 1,000 ml @ 40 mls/hr Q24H IV Last administered on 07/30/18at 02:07; Admin Dose 40 MLS/HR; Start 07/26/18 at 21:34 IV Flush (NS 3 ml) 3 ml PER PROTOCOL IV ; Start 07/26/18 at 22:00 Ondansetron HCl (Zofran Inj) 4 mg Q6H PRN IV NAUSEA AND/OR VOMITING; Start 07/26/18 at 22:00 Acetaminophen (Tylenol Tab) 650 mg Q6H PRN PO PAIN LEVEL 1-3 OR FEVER Last administered on 07/27/18at 00:05; Admin Dose 650 MG; Start 07/26/18 at 22:00 Bisacodyl (Dulcolax) 5 mg DAILY PRN PO CONSTIPATION; Start 07/26/18 at 22:00 Diphenhydramine HCl (Benadryl) 50 mg Q6H PRN PO ITCHING Last administered on 07/27/18 05:02; Admin Dose 50 MG; Start 07/26/18 at 23:30 Levothyroxine Sodium (Synthroid) 50 mcg BEFORE BREAKFAST PO Last administered on 07/30/18 06:28; Admin Dose 50 MCG; Start 07/27/18 at 07:00 Acetaminophen/ Hydrocodone Bitart ([place] (10)) 1 tab Q6H PRN PO MODERATE PAIN LEVEL 4-6 Last administered on 07/29/18 22:01; Admin Dose 1 TAB; Start 07/27/18 at 04:30 Duloxetine HCl (Cymbalta) 30 mg BID PO Last administered on 07/30/18 08:03; Admin Dose 30 MG; Start 07/27/18 at 09:00 Celecoxib (Celebrex) 100 mg BID PO Last administered on 07/30/18 08:03; Admin Dose 100 MG; Start 07/27/18 at 21:00 Pantoprazole (Protonix Tab) 40 mg DAILY@06 PO Last administered on 07/30/18 06:28; Admin Dose 40 MG; Start 07/28/18 at 06:00 Cefazolin Sodium/ Dextrose 50 ml @ 100 mls/hr Q8 IVPB Last administered on 07/30/18 13:03; Admin Dose 100 MLS/HR; Start 07/29/18 at 14:00 Docusate Sodium (Colace) 100 mg Q12 PO Last administered on 07/30/18 08:03; Admin Dose 100 MG; Start 07/29/18 at 21:00 Enoxaparin Sodium (Lovenox) 40 mg DAILY SC Last administered on 07/30/18 08:07; Admin Dose 40 MG; Start 07/30/18 at 09:00 Morphine Sulfate (morphine) 6 mg Q4H PRN PO SEVERE PAIN LEVEL 7-10; Start 07/29/18 at 17:00 Potassium Chloride (Klor-Con 20) 40 meq Q4H PO Last administered on 07/30/18 13:03; Admin Dose 40 MEQ; Start 07/30/18 at 12:00; Stop 07/30/18 at 16:01 FOREST BLANTON MD Jul 30, 2018 15:21
--- NOTE | 2018-07-30 16:31 | PN ---
Date/Time of Note Date/Time of Note DATE: 07/30/18 TIME: 16:29 Assessment/Plan VTE Prophylaxis Risk score (from Ns)>0 risk: 3 SCD applied (from Ns): Yes Pharmacological prophylaxis: LMWH Lines/Catheters IV Catheter Type (from [facility]): Peripheral IV Urinary Cath still in place: No Assessment/Plan Result Diagram: 07/30/18 0430 07/30/18 0430 Results 24hrs Laboratory Tests Test 07/30/18 04:30 White Blood Count 5.4 Red Blood Count 2.70 L Hemoglobin 7.6 L Hematocrit 23.6 L Mean Corpuscular Volume 87.4 Mean Corpuscular Hemoglobin 28.1 L Mean Corpuscular Hemoglobin Concent 32.2 Red Cell Distribution Width 14.2 Platelet Count 315 Mean Platelet Volume 9.2 Immature Granulocytes % 8.300 H Neutrophils % Segmented Neutrophils % (Manual) 62 Band Neutrophils % (Manual) 6 H Lymphocytes % Lymphocytes % (Manual) 14 L Monocytes % Monocytes % (Manual) 12 H Eosinophils % Eosinophils % (Manual) 3 Basophils % Metamyelocytes % (manual) 1 H Myelocytes % (Manual) 2 H Nucleated Red Blood Cells % 0.0 Immature Granulocytes # 0.450 H Neutrophils # Neutrophils # (Manual) 3.4 Band Neutrophils # 0.3 Lymphocytes (Manual) 0.7 L Lymphocytes # Monocytes # Monocytes # (Manual) 0.6 Eosinophils # Basophils # Metamyelocytes # 0.0 Myelocytes # 0.1 H Nucleated Red Blood Cells # Platelet Estimate NORMAL Giant Platelets 4 H Polychromasia 2+ Sodium Level 139 Potassium Level 3.1 L Chloride Level 107 Carbon Dioxide Level 27 Anion Gap 5 Blood Urea Nitrogen 11 Creatinine 0.75 Est Glomerular Filtrat Rate mL/min > 60 Glucose Level 103 Calcium Level 8.9 Magnesium Level 1.9 Subjective 24 Hr Interval Summary Free Text/Dictation S:wants to go home, was able to ambulate with the walker Objective: General: A&O x3, answering questions appropriately HEENT: NC/ AT. PERRL. EOM intact Neck: supple CVS: S1, S2, RRR. no murmurs. no pain on chest wall palpation Lungs: CTA b/l. no wheezing or rhonchi Abd: soft, nontender, +BS Ext: moving all extremities skin: no rashes assessment and plan: 57-year-old female who presented to our emergency room with severe pain in her right hip and was found to be febrile with sepsis currently managed as follows: 1. Sepsis 2/2 Staphylococcus bacteremia from ?recurrent septic joint with prosthesis 2. 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 Iron deficiency anemia - s/p 3 days of IV iron replacement therapy 4. History of depression -stable on home meds 5. Hypothyroidism -TSH showing good control, continue synthroid at home dose 6. Constipation 7. Chronic osteoarthritis Dispo: Ortho is not available for a few more days, will d/w ID if patient can be sent home with abx and readmitted for operative intervention when Ortho returns continue current supportive care. Exam/Review of Systems Vital Signs Vitals Vital Signs Date Temp Pulse Resp B/P (MAP) Pulse Ox O2 O2 Flow FiO2 Time Delivery Rate 07/30/18 98.2 63 17 144/68 99 14:00 (93) 07/29/18 Room Air 19:43 Intake and Output 07/29/18 07/29/18 07/30/18 1515:00 23:00 07:00 IntakeIntake Total 880 ml 580 ml 950 ml OutputOutput Total 620 ml 220 ml BalanceBalance 260 ml 360 ml 950 ml Medications Medications Current Medications Sodium Chloride 1,000 ml @ 40 mls/hr Q24H IV Last administered on 07/30/18at 02:07; Admin Dose 40 MLS/HR; Start 07/26/18 at 21:34 IV Flush (NS 3 ml) 3 ml PER PROTOCOL IV ; Start 07/26/18 at 22:00 Ondansetron HCl (Zofran Inj) 4 mg Q6H PRN IV NAUSEA AND/OR VOMITING; Start 07/26/18 at 22:00 Acetaminophen (Tylenol Tab) 650 mg Q6H PRN PO PAIN LEVEL 1-3 OR FEVER Last administered on 07/27/18 00:05; Admin Dose 650 MG; Start 07/26/18 at 22:00 Bisacodyl (Dulcolax) 5 mg DAILY PRN PO CONSTIPATION; Start 07/26/18 at 22:00 Diphenhydramine HCl (Benadryl) 50 mg Q6H PRN PO ITCHING Last administered on 07/27/18 05:02; Admin Dose 50 MG; Start 07/26/18 at 23:30 Levothyroxine Sodium (Synthroid) 50 mcg BEFORE BREAKFAST PO Last administered on 07/30/18 06:28; Admin Dose 50 MCG; Start 07/27/18 at 07:00 Acetaminophen/ Hydrocodone Bitart ([place] (10/325)) 1 tab Q6H PRN PO MODERATE PAIN LEVEL 4-6 Last administered on 07/29/18 22:01; Admin Dose 1 TAB; Start 07/27/18 at 04:30 Duloxetine HCl (Cymbalta) 30 mg BID PO Last administered on 07/30/18 08:03; Admin Dose 30 MG; Start 07/27/18 at 09:00 Celecoxib (Celebrex) 100 mg BID PO Last administered on 07/30/18 08:03; Admin Dose 100 MG; Start 07/27/18 at 21:00 Pantoprazole (Protonix Tab) 40 mg DAILY@06 PO Last administered on 07/30/18 06:28; Admin Dose 40 MG; Start 07/28/18 at 06:00 Cefazolin Sodium/ Dextrose 50 ml @ 100 mls/hr Q8 IVPB Last administered on 07/30/18 13:03; Admin Dose 100 MLS/HR; Start 07/29/18 at 14:00 Docusate Sodium (Colace) 100 mg Q12 PO Last administered on 07/30/18 08:03; Admin Dose 100 MG; Start 07/29/18 at 21:00 Enoxaparin Sodium (Lovenox) 40 mg DAILY SC Last administered on 07/30/18 08:07; Admin Dose 40 MG; Start 07/30/18 at 09:00 Morphine Sulfate (morphine) 6 mg Q4H PRN PO SEVERE PAIN LEVEL 7-10; Start 07/29/18 at 17:00 ROBERTO DUKES Jul 30, 2018 16:31
[2018-07-30 19:58] VITALS: BP 122/80; PULSE 88; RESP 18
[2018-07-31 02:00] VITALS: BP 146/76; PULSE 86; RESP 18
[2018-07-31] MEDS: PANTOPRAZOLE (EC) 40 MG TAB PO SCH (06:11)
[2018-07-31] MEDS: LEVOTHYROXINE 50 MCG TAB PO SCH (06:11)
[2018-07-31] MEDS: CEFAZOLIN 2 GM/50 ML (PMX) 50 ML IVPB SCH (06:12)
[2018-07-31] MEDS ORDERED: VANCOMYCIN IV PER PHARMACY XX SCH (07:00)
[2018-07-31 07:40] VITALS: BP 149/71; PULSE 82; RESP 16
[2018-07-31] MEDS ORDERED: VANCOMYCIN HCL 2 GM in SOD CHLORIDE 0.9% 500 ML IVPB SCH (09:00)
[2018-07-31] MEDS: CELECOXIB 100 MG CAP PO SCH (09:16)
[2018-07-31] MEDS: DOCUSATE SODIUM 100 MG CAP PO SCH (09:17)
[2018-07-31] MEDS: DULOXETINE 30 MG CAP DR PO SCH (09:17)
[2018-07-31] MEDS: ENOXAPARIN 40 MG/0.4 ML SYG SC SCH (09:22)
[2018-07-31] MEDS ORDERED: DOCU250C58 PO (11:18)
[2018-07-31] MEDS ORDERED: HYDR-3609 PO (11:18)
[2018-07-31] MEDS ORDERED: PANT40TA4 PO (11:18)
[2018-07-31] MEDS ORDERED: ASPI325T32 PO (11:19)
--- NOTE | 2018-07-31 11:24 | PDOCDIS ---
Discharge Instructions CONDITION [id number] Patient Condition: [id number] Stable HOME CARE INSTRUCTIONS: [id number] Special Diet: [id number] Regular Diet FOLLOW UP/APPOINTMENTS Follow-up Plan 1. Call Dr Menchaca's office right away and setup a followup appointment let him know you are taking aspirin 325mg twice daily to prevent a blood clot and ask him if you should keep taking it or stop taking it always take the aspirin with food and stop it immediately if you notice unusual bleeding or black stools 2. Also call Dr Hendrickson's office for an appointment, they will be managing your antibiotics and the midline Name, Degree : Rico Hendrickson MD Specialty : Infectious Disease Office Address : [address] [place] [address]. [address] [place] [address] Office Office 3. Your home health nurse should be able to help with any other questions, if not, please contact your PCP. If all fails, you may return to the ER anytime. ROBERTO DUKES Jul 31, 2018 11:24
[2018-07-31] MEDS ORDERED: CEFAZOLIN 2 GM/50 ML (PMX) 50 ML IVPB SCH (14:00)
--- NOTE | 2018-07-31 14:10 | CONS ---
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 Tolerates cefazolin - ESR 128 Recommendations: - Continue Cefazolin 2 gm IV q8 hours (07/29/2018-); plan for 6 weeks - OK for DC home on IV abx with outpatient ID follow up (ok to skip PM dose of Cefazolin as pt has already received a dose of IV vancomycin earlier) - Plan for surgical intervention (two step total hip revision) noted Management d/w patient, NIYAH Trujillo, and with Dr. Hendrickson. All questions answered. Therapeutic time provided. Result Diagram: 07/31/18 0432 07/31/18 0432 Results 24hrs Laboratory Tests Test 07/31/18 04:32 White Blood Count 6.8 # Red Blood Count 2.77 L Hemoglobin 7.9 L Hematocrit 24.3 L Mean Corpuscular Volume 87.7 Mean Corpuscular Hemoglobin 28.5 L Mean Corpuscular Hemoglobin Concent 32.5 Red Cell Distribution Width 14.1 Platelet Count 338 Mean Platelet Volume 8.8 Immature Granulocytes % 9.900 H Neutrophils % Segmented Neutrophils % (Manual) 60 Band Neutrophils % (Manual) 2 Lymphocytes % Lymphocytes % (Manual) 21 Monocytes % Monocytes % (Manual) 8 Eosinophils % Eosinophils % (Manual) 3 Basophils % Basophils % (Manual) 2 Metamyelocytes % (manual) 2 H Myelocytes % (Manual) 2 H Nucleated Red Blood Cells % 0.0 Immature Granulocytes # 0.670 H Neutrophils # Neutrophils # (Manual) 4.1 Band Neutrophils # 0.1 Lymphocytes (Manual) 1.4 Lymphocytes # Monocytes # Monocytes # (Manual) 0.5 Eosinophils # Basophils # Basophils # (Manual) 0.1 H Metamyelocytes # 0.1 H Myelocytes # 0.1 H Nucleated Red Blood Cells # Platelet Estimate NORMAL Giant Platelets 2 H Polychromasia 1+ Anisocytosis 1+ Microcytosis 1+ Sodium Level 138 Potassium Level 3.6 Chloride Level 102 Carbon Dioxide Level 28 Anion Gap 8 Blood Urea Nitrogen 9 Creatinine 0.61 Est Glomerular Filtrat Rate mL/min > 60 Glucose Level 96 Calcium Level 9.3 Consultation Date/Type/Reason Admit Date/Time Jul 26, 2018 at 21:18 Initial Consult Date 07/26/18 Type of Consult Infectious Disease Requesting Provider: LISA RUIZ 24 HR Interval Summary Free Text/Dictation 2nd set of blood cx from 07/27/2018 came back positive for gram positive cocci in clusters (1st set was already +MSSA) and pt received a dose of IV vancomycin today. Repeat blood cx from 07/29/2018 remains negative. LUE midline was placed, pt was restarted on Cefazolin, and DC planning in progress for home with IV abx is being arranged per d/w nursing. Pt denies pain, SOB, fever, chills, n/v/d, dysuria. States she is anxious to go home today. Exam/Review of Systems Vital Signs Vitals Vital Signs Date Temp Pulse Resp B/P (MAP) Pulse Ox O2 O2 Flow FiO2 Time Delivery Rate 07/31/18 98.1 82 16 149/71 96 Room Air 07:40 (97) Intake and Output 07/30/18 07/30/18 07/31/18 1414:59 22:59 06:59 IntakeIntake Total 500 ml 850 ml 350 ml BalanceBalance 500 ml 850 ml 350 ml Exam Constitutional: alert, oriented, well developed, other (sitting in chair watching TV and in no acute distress) Psych: no complaints, nl mood/affect Head: normocephalic, atraumatic Eyes: nl conjunctiva, nl lids, nl sclera ENMT: nl external ears & nose, nl nasal mucosa & septum, mucosa pink and moist (no thrush) Neck: supple Respiratory: clear to auscultation, normal air movement Cardiovascular: regular rate and rhythm, nl pulses Gastrointestinal: soft, non-tender Genitourinary - Female: other (No Mendoza) Musculoskeletal: nl extremities to inspection Extremities: normal pulses, other (LUE midline c/d/i); No edema Neurological: nl mental status, nl speech, nl strength Skin: nl turgor, other (R groin/upper thigh with well-healed incisional scar, no erythema and no TTP); No rash or lesions Medications Medications Current Medications Sodium Chloride 1,000 ml @ 40 mls/hr Q24H IV Last administered on 07/30/18at 02:07; Admin Dose 40 MLS/HR; Start 07/26/18 at 21:34 IV Flush (NS 3 ml) 3 ml PER PROTOCOL IV ; Start 07/26/18 at 22:00 Ondansetron HCl (Zofran Inj) 4 mg Q6H PRN IV NAUSEA AND/OR VOMITING; Start 07/26/18 at 22:00 Acetaminophen (Tylenol Tab) 650 mg Q6H PRN PO PAIN LEVEL 1-3 OR FEVER Last administered on 07/27/18at 00:05; Admin Dose 650 MG; Start 07/26/18 at 22:00 Bisacodyl (Dulcolax) 5 mg DAILY PRN PO CONSTIPATION; Start 07/26/18 at 22:00 Diphenhydramine HCl (Benadryl) 50 mg Q6H PRN PO ITCHING Last administered on 07/27/18at 05:02; Admin Dose 50 MG; Start 07/26/18 at 23:30 Levothyroxine Sodium (Synthroid) 50 mcg BEFORE BREAKFAST PO Last administered on 07/31/18at 06:11; Admin Dose 50 MCG; Start 07/27/18 at 07:00 Acetaminophen/ Hydrocodone Bitart ([place] (10/325)) 1 tab Q6H PRN PO MODERATE PAIN LEVEL 4-6 Last administered on 07/29/18at 22:01; Admin Dose 1 TAB; Start 07/27/18 at 04:30 Duloxetine HCl (Cymbalta) 30 mg BID PO Last administered on 07/31/18at 09:17; Admin Dose 30 MG; Start 07/27/18 at 09:00 Celecoxib (Celebrex) 100 mg BID PO Last administered on 07/31/18at 09:16; Admin Dose 100 MG; Start 07/27/18 at 21:00 Pantoprazole (Protonix Tab) 40 mg DAILY@06 PO Last administered on 07/31/18at 06:11; Admin Dose 40 MG; Start 07/28/18 at 06:00 Docusate Sodium (Colace) 100 mg Q12 PO Last administered on 07/31/18at 09:17; Admin Dose 100 MG; Start 07/29/18 at 21:00 Enoxaparin Sodium (Lovenox) 40 mg DAILY SC Last administered on 07/31/18at 09:22; Admin Dose 40 MG; Start 07/30/18 at 09:00 Morphine Sulfate (morphine) 6 mg Q4H PRN PO SEVERE PAIN LEVEL 7-10; Start 07/29/18 at 17:00 Cefazolin Sodium/ Dextrose 50 ml @ 100 mls/hr Q8 IVPB Last administered on 07/31/18at 13:53; Admin Dose 100 MLS/HR; Start 07/31/18 at 14:00 EDGAR SANTOS NP Jul 31, 2018 14:09
[2018-07-31 15:32] VITALS: BP 164/83; PULSE 78; RESP 18
[2018-07-31] MEDS ORDERED: VANCOMYCIN HCL 1.5 GM in SOD CHLORIDE 0.9% 250 ML IVPB SCH (21:00)
--- NOTE | 2018-08-01 08:03 | DS ---
DATE OF ADMISSION: 07/26/2018 DATE OF DISCHARGE: 07/31/2018 PRESENTING COMPLAINT: Right hip pain of 2 days and fever. FINAL DIAGNOSES: 1. Sepsis secondary to Staphylococcus bacteremia for recurrent septic joint with prosthesis. 2. 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 -- Echo showed no vegetation on transesophageal echocardiogram. -- Status post interventional radiology-guided aspiration 07/28/2018 with cultures growing. -- Patient has been treated back in December of 2017 for Methicillin-sensitive Staphylococcus aureus for 3 months. 3. Iron deficiency anemia, status post 3 days of IV iron replacement therapy. 4. Chronic depression, stable on home meds. 5. Hypothyroidism with good control. 6. Status post constipation. 7. Chronic osteoarthritis. CONSULTS ON THE CASE: Infectious disease doctor, Dr. Rico Hendrickson as well as Dr. Bina Verma as well as the orthopedic surgery as well as DEJA Lowe therapy acting for Dr. Menchaac SHORT HOSPITALIZATION COURSE: Full details are available in the chart for review. In summary, this patient presented with fever and hip pain, she has recently been seen here and discharged with concerns for septic joint at that time, her Orthopedic surgeon Dr. Menchaca did not feel the joint was infected and so she was treated for sepsis and discharged home but then she returned again with similar symptoms and at this time, ID recommended aspiration of the joint for cultures. The joint was aspirated and cultures came back positive for the same organism, for which was in her blood stream. It is recommended the patient would undergo orthopedic evaluation to see what they recommended. However, her orthopedic surgeon who have been managing her hip prosthesis was out of town and would not be back for a few days, so once her blood cultures came back negative; however, decision was made to discharge her and she will follow up with orthopedic surgeon's office for definitive intervention. She is being discharged on IV antibiotics for 6 weeks per ID recommendations and she will follow up with both ID and orthopedic surgery as an outpatient for definitive intervention. DISCHARGE: Hemodynamically stable. ACTIVITY: As tolerated. DISCHARGE MEDICATIONS: For complete list of discharge medications, please review her chart. DIET: Recommended diet is a low cholesterol, low fat. FOLLOWUP: As summarized above. Time spent on discharge coordination more than an hour. Dictated By: ROBERTO DUKES MD, BA/NTS Conf#: [id number] [facility]#: [id number] CC: LISA RUIZ MD;*EndCC* MTDD
== END 2018-07-31 18:15 | disposition home health service (06) | DRG 559 ==
LOC: E/R 17:02 → TEL 21:18 → MS1 07-27 18:58
PROVIDERS: ADMIT Family Medicine; ATTEND Family Medicine
PROC: 0S993ZX Drainage of Right Hip Joint, Percutaneous Approach, Diagnostic (ICD-10-PCS; principal; 2018-07-28)
DX: T84.51XA Infection and inflammatory reaction due to internal right hip prosthesis, initial encounter (principal); A41.01 Sepsis due to Methicillin susceptible Staphylococcus aureus; M00.9 Pyogenic arthritis, unspecified; E03.9 Hypothyroidism, unspecified; M16.12 Unilateral primary osteoarthritis, left hip; D50.9 Iron deficiency anemia, unspecified; E66.9 Obesity, unspecified; F32.9 Major depressive disorder, single episode, unspecified; K59.00 Constipation, unspecified; Z96.641 Presence of right artificial hip joint; Z68.34 Body mass index [BMI] 34.0-34.9, adult
CPT/HCPCS: 36415; 71045; 74177; 77002; 80048; 80053; 80061; 80202; 83036; 83605; 83735; 84443; 85025; 85610; 85651; 85730; 86140; 86850; 86900; 86901; 86920; 87040; 87070; 89060; 93005; 93306; 96365; 96375; J0690; J0692; J1644; J1650; J2270; J2274; J2916; J3010; J3370; J7030; J7040; J7050; Q9967

== ENCOUNTER 2018-08-07 10:08 | Inpatient (IN) | payer OTHER ==
[~2018-08-07] VITALS: Ht 172.7 cm; Wt 99.1 kg
[2018-08-07] VITALS (28 sets, daily range): BP systolic 115–169; BP diastolic 57–97; PULSE 64–108; RESP 6–22; Ht 172.7 cm; Wt 99.1 kg
[2018-08-07] MEDS: LACTATED RINGER'S 1,000 ML IV SCH ×4 (06:00→22:00)
[~2018-08-07 10:08] MED LIST changes: +ACETAMINOPHEN 500 MG TAB PO ONE; +ASPI325T32 PO; -CELE100C PO; +DEXAMETHASONE 4 MG/ML 1 ML INJ IV ONE; +DOCU250C58 PO; +HYDR-3609 PO; -IBUP-1542 PO; +PANT40TA4 PO; -SULF1TAB31 PO; +TRANEXAMIC ACID 1,000 MG in D5W 100 ML AT CLOSURE X1 IVPB ONE; +TRANEXAMIC ACID 1,000 MG in D5W 100 ML AT INCISION X1 IVPB ONE
--- NOTE | 2018-08-07 10:33 | HPN ---
Date/Time of Note Date/Time of Note DATE: 08/07/18 TIME: 10:33 Interval H&P Admission Note Pt. seen H&P reviewed: No system changes MARCEL FARMER Aug 07, 2018 10:33
[2018-08-07] MEDS ORDERED: ASPI325T30 PO (11:02)
[2018-08-07] MEDS ORDERED: DOCU250C58 PO (11:03)
[2018-08-07] MEDS ORDERED: ASCO500C7 PO (11:04)
[2018-08-07] MEDS ORDERED: CELE100C PO (11:05)
[2018-08-07] MEDS ORDERED: HYDR-4011 PO (11:05)
[2018-08-07] MEDS ORDERED: IBUP-1542 PO (11:06)
[2018-08-07] MEDS ORDERED: CALC1TAB4 PO (11:06)
[2018-08-07] MEDS ORDERED: KRIL1CAP22 PO (11:09)
[2018-08-07] MEDS ORDERED: ACETAMINOPHEN 1000MG/100ML IV 100 ML IVPB ONE (12:00)
[2018-08-07] MEDS ORDERED: BACITRACIN 50000 UNITS INJ ONE (12:14)
[2018-08-07] MEDS ORDERED: POLYMYXIN B 500000 UNIT INJ ONE (12:23)
--- NOTE | 2018-08-07 12:42 | PREAC ---
Date/Time of Note Date/Time of Note DATE: 08/07/18 TIME: 12:40 Anesthesia Eval and Record Evaluation Time Pre-Procedure Interview DATE: 08/07/18 TIME: 12:40 Age 57 Sex female NPO: 8 hrs Preoperative diagnosis right total hip arthroplasty infection Planned procedure stage I revision right total hip - removal of implant and placement of antibiotic spacer Past Medical History Past Medical History: Includes Endo: Hypothyroid Musculoskeletal: Osteoarthritis GI: Obesity Surgery & Anesthesia Issues No known issue Meds Anticoagulation: No Beta Harsh within 24 hr: No Reason Beta Harsh not given: Pt. not on B-Harsh Reported Medications Krill/Om-3/Dha/Epa/Phospho/Ast (Megared [place]-3 Krill Oil Sfgl) 1 Each Capsule, 1 EACH PO DAILY, CAP 08/07/18 Ca/D3/Mag#11/Zinc/Industrial Electrical Technician/Maxx/Bor (Caltrate 600+D Plus Tablet) 1 Each Tablet, 1 EACH PO DAILY, TAB 08/07/18 Ibuprofen* (Motrin*) 600 Mg Tab, 600 MG PO Q8H PRN for PAIN, TAB 08/07/18 Hydrocodone/Acetaminophen ([place] 5-325 Tablet) 1 Each Tablet, 1 EACH PO Q4 PRN for PAIN, TAB 08/07/18 Celecoxib* (Celebrex*) 100 Mg Capsule, 100 MG PO BID, CAP 08/07/18 Ascorbic Acid* (Vitamin C*) 500 Mg Capsule.sa, 1000 MG PO DAILY, CAP 08/07/18 Docusate Sodium* (Colace*) 250 Mg Capsule, 250 MG PO DAILY, #30 CAP 08/07/18 Aspirin* (Aspirin*) 325 Mg Tablet, 325 MG PO BID, TAB 08/07/18 Duloxetine Hcl* (Duloxetine Hcl*) 30 Mg Capsule.dr, 30 MG PO BID, #30 CAP 07/03/18 Levothyroxine Sodium* (Levothyroxine Sodium*) 50 Mcg Tablet, 50 MCG PO BEFORE BREAKFAST, #30 TAB 08/27/17 Tramadol HCl (Tramadol HCl) 50 Mg Tablet, 50 MG PO BID, #60 TAB 08/27/17 Discontinued Reported Medications Ibuprofen* (Ibuprofen*) 600 Mg Tablet, 600 MG PO NEEDED, TAB 08/27/17 Discontinued Scripts Aspirin* (Aspirin* EC) 325 Mg Tab, 325 MG PO BID for for DVT prophylaxis for 14 Days, #28 TAB Prov:ERNST,BOLATITO M. 07/31/18 Docusate Sodium* (Colace*) 250 Mg Capsule, 250 MG PO DAILY, #30 CAP Prov:ROBERTO DUKES. 07/31/18 Pantoprazole* (Pantoprazole*) 40 Mg Tablet.dr, 40 MG PO DAILY@06, #30 TAB Prov:ROBERTO DUKES. 07/31/18 Hydrocodone/Acetaminophen (Hydrocodone-Acetamin 10-325 mg) 1 Each Tablet, 1 TAB PO Q6H PRN for MODERATE PAIN LEVEL 4-6, #20 TAB Prov:ROBERTO DUKES. 07/31/18 Celecoxib* (Celebrex*) 100 Mg Capsule, 100 MG PO BID for 14 Days, #30 CAP Prov:JEFFREY ARIAS MD 07/06/18 Current Medications Lactated Ringer's 1,000 ml @ 125 mls/hr Q8H IV ; Start 08/07/18 at 06:00 Meds reviewed: Yes Allergies Coded Allergies: oxacillin (Verified Allergy, Severe, 08/07/18) dizziness and weakness of extremities. Pt tolerates cefazolin. Allergies Reviewed: Yes Labs/Studies Labs Reviewed: Reviewed by anesthesiologist test: N/A Pre-procedure Exam Last vitals Vital Signs Date Temp Pulse Resp B/P (MAP) Pulse Ox O2 O2 Flow FiO2 Time Delivery Rate 08/07/18 96.7 90 16 157/83 98 Room Air 11:53 (107) Airway: Adequate mouth opening, Adequate thyromental dist Mallampati: Mallampati II Teeth: Normal Lung: Normal Heart: Normal ASA Physical Status ASA physical status: 2 Emergency: None Planned Anesthetic General/MAC: LMA Neuraxial: Spinal Planned Pain Management Sub-arachniod narcotics, Parenteral pain med Pre-operative Attestations Prior to commencing anesthesia and surgery, the patient was re-evaluated, there was verification of: *The patient's identity *The results of appropriate recent lab work and preoperative vital signs *The above evaluation not changing prior to induction *Anesthetic plan, risk benefits, alternative and complications discussed with patient/family; questions answered; patient/family understands, accepts and wishes to proceed. BOBY RIVERA MD Aug 07, 2018 12:42
[2018-08-07] MEDS ORDERED: LIDOCAINE 2% (SDV) 5 ML INJ ONE (12:57)
[2018-08-07] MEDS ORDERED: PROPOFOL 20 ML ONE (12:57)
[2018-08-07] MEDS ORDERED: MIDAZOLAM 1 MG/ML 2 ML INJ ONE (12:58)
[2018-08-07] MEDS ORDERED: FENTAnyl 50 MCG/ML VIAL ONE ×2 (12:58→14:29)
[2018-08-07] MEDS ORDERED: TOBRAMYCIN 1.2 GM POWDER ONE (12:58)
[2018-08-07] MEDS ORDERED: VANCOMYCIN 1 GM INJ ONE (13:18)
[2018-08-07] MEDS ORDERED: ONDANSETRON 4 MG INJ ONE (13:33)
[2018-08-07] MEDS ORDERED: FAMOTIDINE 20 MG INJ ONE (13:33)
[2018-08-07] MEDS ORDERED: METHYLENE BLUE 1% 10 ML INJ ONE (13:45)
[2018-08-07] MEDS ORDERED: MINERAL OIL LIGHT 10 ML VIAL ONE (13:45)
[2018-08-07] MEDS ORDERED: HYDROmorphONE 2 MG/ML SYG ONE (15:10)
[2018-08-07] MEDS ORDERED: PROCHLORPERAZINE 10 MG INJ IV PRN (16:00)
[2018-08-07] MEDS ORDERED: MEPERIDINE 25 MG INJ IV PRN (16:00)
[2018-08-07] MEDS ORDERED: FENTAnyl 50 MCG/ML VIAL IV PRN (16:00)
[2018-08-07] MEDS ORDERED: DIPHENHYDRAMINE 50 MG INJ IV PRN (16:00)
--- NOTE | 2018-08-07 17:45 | SIPON ---
Date/Time of Note Date/Time of Note DATE: 08/07/18 TIME: 17:44 Operative Report Preoperative Diagnosis Infected right total hip replacement Postoperative Diagnosis Same Operation/Procedure Performed Stage I revision of right hip replacement Surgeon see signature line financial administrative assistant DEJA Red Anesthesia: spinal Estimated blood loss: other Transfusion Required none Specimen Cultures Grafts/Implants Temporary prosthesis, antibiotic spacer Complications none MARCEL FARMER Aug 07, 2018 17:45
--- NOTE | 2018-08-07 17:50 | OPR ---
Date/Time of Note Date/Time of Note DATE: 08/07/18 TIME: 17:45 Operative Report Procedure Date: Aug 07, 2018 Preoperative Diagnosis Infected right total hip replacement Postoperative Diagnosis Same Operation/Procedure Performed Stage I revision of right hip replacement Surgeon see signature line Medication Coordinator DEJA Red Anesthesia Type: spinal Estimated Blood Loss: other Transfusion none Specimen Cultures Grafts/Implants Antibiotic spacer and antibiotic beads Tubes/Drains None Complications none Pt Condition Post Procedure: stable Disposition: PACU Indications The patient is a 57-year-old female with infection of her right hip prosthesis Procedure Description The patient was placed supine on the operating room table. The right hip was prepped and draped in usual manner. Preoperative antibiotics were held until intraoperative cultures were obtained. An anterior incision was made. The plane between the sartorius and tensor fascia chip was developed in a blunt fashion. There was extensive scarring on the anterior aspect of the right hip. Once the hip capsule was opened, purulent material was encountered. Cultures were obtained. A significant amount of scar tissue around the hip capsule was excised. The hip was dislocated and femoral head removed. The acetabular component was removed with the help of an explant. It was noted that there was infection in the interface between the acetabulum and the bone. Curettes were used to remove all abnormal bone. Cultures were sent from the acetabulum as well. After this the femoral stem was addressed. Using flexible osteotomes and slaphammer, an attempt was made to remove the stem. The stem was well fixed and removal was not successful. At this time an osteotomy of the proximal femur was done. 10 cm long osteotomy was done and the femoral stem removed. The IM canal of the femur was thoroughly curetted. All infected appearing material was removed. Cultures were sent from inside the femur as well. The osteotomy was then repaired with cables. A temporary prosthesis was prepared by coating the implant with antibiotics and cement. 4 vials of vancomycin and 4 vials of tobramycin were used. A 42 mm acetabular component was also cemented in place. The acetabular cement also had antibiotics. Once the spacer stem was placed to the appropriate depth, the femoral head was applied and reduced into the acetabular component. The wound was thoroughly irrigated and injected with pain cocktail. Antibiotic beads were placed into the wound. Hemostasis was achieved with electrocautery and aqua mantis. The wound was closed in layers using #1 Vicryl for muscles and deep fascia, #1 strata fix for fascia, 2-0 Vicryl for subcutaneous tissue and 3-0 Monocryl for the skin. Sterile dressing was applied and the patient transferred to the recovery room in stable condition. MARCEL FARMER Aug 07, 2018 17:50
--- NOTE | 2018-08-07 17:58 | NUR ---
PACU: Received patient in pacu via bed s/p Right hip stage I revision w/ ABX spacer drowsy & arousable, Dr. Menchaca @ bedisde, Vss HOB @ semi fernandes position, breathing with ease, right hip dressing dry & intact place ice pack over dressing, scd placed on both legs, legs moving well, cap refill<3 sec, pedal pulse good, legs warm to touch, Dr Lisa seeing the patient at this moment, will continue to monitor.
[2018-08-07] MEDS ORDERED: KETOROLAC 15 MG INJ IV PRN (18:00)
[2018-08-07] MEDS ORDERED: BISACODYL 10 MG SUPP PR PRN (18:00)
[2018-08-07] MEDS ORDERED: oxyCODONE 5 MG TAB PO PRN (18:00)
[2018-08-07] MEDS ORDERED: SENNA/DOCUSATE NA (8.6MG/50MG) TAB PO PRN (18:00)
[2018-08-07] MEDS ORDERED: NACL 0.9% 3 ML SYG IV SCH (18:00)
[2018-08-07] MEDS: ONDANSETRON 4 MG INJ IV PRN ×2 (18:14→19:41)
[2018-08-07] MEDS: HYDROmorphONE 1 MG/5 ML IV SYRINGE IV PRN ×6 (18:15→19:17)
[2018-08-07] MEDS: VANCOMYCIN 1 GM (PMX) 250 ML IVPB SCH (18:16)
--- NOTE | 2018-08-07 19:03 | PAC ---
Date/Time of Note Date/Time of Note DATE: 08/07/18 TIME: 19:02 Post-Anesthesia Notes Post-Anesthesia Note Last documented vital signs Vital Signs Date Temp Pulse Resp B/P (MAP) Pulse Ox O2 O2 Flow FiO2 Time Delivery Rate 08/07/18 98.3 17:58 08/07/18 90 16 157/83 98 Room Air 11:53 (107) Activity: WNL Respiratory function: WNL Cardiovascular function: WNL Mental status: Baseline Pain reasonably controlled: Yes Hydration appropriate: Yes Nausea/Vomiting absent: Yes Comments BP: 139/78 HR: 98 RR: 15 T: 98.3 SaO2: 99% BOBY RIVERA MD Aug 07, 2018 19:03
--- NOTE | 2018-08-07 19:06 | CONS ---
Assessment/Plan Assessment/Plan Hospital Course (Demo Recall) 57 yo F with PMH hypothyroidism, bilateral OA of hip with complication to R THR requiring multiple procedures including washout and revision presented for elective stage I revision of right hip replacement. POD #0 Assessment/Plan (Daily) 1. 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 POD #0 - ID consulted for antibiotic recommendations - Ortho to manage post op care - pain control - PT/OT for discharge planning - will arrange for PICC line placement and HH for IV antibiotics when stable for discharge 2. Hypothyroidism - continue levothyroxine 3. Depression - continue home medications 4. Disposition - Continue current care and will assist with arrangement for PICC line and IV antibiotics once cleared for d/c Thank you for allowing me to participate in the care of your patient. Please call with any questions Consultation Date/Type/Reason Admit Date/Time Aug 07, 2018 at 10:08 Date of Consultation: Aug 07, 2018 Reason for Consultation Medical management Date/Time of Note DATE: 08/07/18 TIME: 18:48 Hx of Present Illness 57 yo F with PMH hypothyroidism, bilateral OA of hip with complication to R THR requiring multiple procedures including washout and revision presented for elective stage I revision of right hip replacement. Medicine consultation was placed for assistance with arranging for PICC line placement and medical management while inpatient. Dr. Hendrickson from ID was consulted by Dr. Menchaca for antibiotic management. Patient was interviewed in the PACU following surgery and was complaining of pain as well as nausea. She denies any dizziness, chest pain, shortness of breath, abdominal pain, urinary issues or LOC. Patient was recently admitted 07/26/18 for sepsis which was believed to infection of right hip prosthesis. She was discharged on IV Ancef. All 12 systems reviewed and pertinent positives as per HPI. All others negative. Constitutional: No chills, No disoriented Eyes: No discharge ENT: No congestion Respiratory: No cough, No shortness of breath, No sputum, No wheezing Cardiovascular: No chest pain, No lightheadedness Gastrointestinal: nausea; No pain, No constipation, No diarrhea, No vomiting Genitourinary: no complaints Musculoskeletal: bone/joint pain (right hip) Skin: No laceration, No rash Neurologic: No confusion, No focal-weakness, No syncope Endocrine: no complaints Lymphatic: no complaints Psychological: nl mood/affect Immunologic: no complaints Past Medical History Medical History: hypothyroid, other (osteoarthritis of hips s/p replacement) Home Meds Reported Medications Krill/Om-3/Dha/Epa/Phospho/Ast (Megared [place]-3 Krill Oil Sfgl) 1 Each Capsule, 1 EACH PO DAILY, CAP 08/07/18 Ca/D3/Mag#11/Zinc/Vp Customer Development/Maxx/Bor (Caltrate 600+D Plus Tablet) 1 Each Tablet, 1 EACH PO DAILY, TAB 08/07/18 Ibuprofen* (Motrin*) 600 Mg Tab, 600 MG PO Q8H PRN for PAIN, TAB 08/07/18 Hydrocodone/Acetaminophen ([place] 5-325 Tablet) 1 Each Tablet, 1 EACH PO Q4 PRN for PAIN, TAB 08/07/18 Celecoxib* (Celebrex*) 100 Mg Capsule, 100 MG PO BID, CAP 08/07/18 Ascorbic Acid* (Vitamin C*) 500 Mg Capsule.sa, 1000 MG PO DAILY, CAP 08/07/18 Docusate Sodium* (Colace*) 250 Mg Capsule, 250 MG PO DAILY, #30 CAP 08/07/18 Aspirin* (Aspirin*) 325 Mg Tablet, 325 MG PO BID, TAB 08/07/18 Duloxetine Hcl* (Duloxetine Hcl*) 30 Mg Capsule.dr, 30 MG PO BID, #30 CAP 07/03/18 Levothyroxine Sodium* (Levothyroxine Sodium*) 50 Mcg Tablet, 50 MCG PO BEFORE BREAKFAST, #30 TAB 08/27/17 Tramadol HCl (Tramadol HCl) 50 Mg Tablet, 50 MG PO BID, #60 TAB 08/27/17 Discontinued Reported Medications Ibuprofen* (Ibuprofen*) 600 Mg Tablet, 600 MG PO NEEDED, TAB 08/27/17 Discontinued Scripts Aspirin* (Aspirin* EC) 325 Mg Tab, 325 MG PO BID for for DVT prophylaxis for 14 Days, #28 TAB Prov:ROBERTO DUKES M. 07/31/18 Docusate Sodium* (Colace*) 250 Mg Capsule, 250 MG PO DAILY, #30 CAP Prov:ROBERTO DUKES M. 07/31/18 Pantoprazole* (Pantoprazole*) 40 Mg Tablet.dr, 40 MG PO DAILY@06, #30 TAB Prov:ROBERTO DUKES M. 07/31/18 Hydrocodone/Acetaminophen (Hydrocodone-Acetamin 10-325 mg) 1 Each Tablet, 1 TAB PO Q6H PRN for MODERATE PAIN LEVEL 4-6, #20 TAB Prov:ERNST,ROBERTO Evans 07/31/18 Celecoxib* (Celebrex*) 100 Mg Capsule, 100 MG PO BID for 14 Days, #30 CAP Prov:JEFFREY ARIAS MD 07/06/18 Medications Current Medications Lactated Ringer's 1,000 ml @ 125 mls/hr Q8H IV ; Start 08/07/18 at 06:00 Hydromorphone HCl (Dilaudid) 0.2 mg PACU PRN IV MILD PAIN 1-3 Last administered on 08/07/18at 18:32; Admin Dose 0.2 MG; Start 08/07/18 at 16:00; Stop 08/07/18 at 20:00 Hydromorphone HCl (Dilaudid) 0.4 mg PACU PRN IV MOD PAIN 4-6 Last administered on 08/07/18at 18:38; Admin Dose 0.4 MG; Start 08/07/18 at 16:00; Stop 08/07/18 at 20:00 Fentanyl (Sublimaze) 25 mcg PACU ORDER PRN IV MILD PAIN 1-3; Start 08/07/18 at 16:00; Stop 08/07/18 at 20:00 Ondansetron HCl (Zofran Inj) 4 mg PACU ORDER PRN IV NAUSEA/VOMITING Last administered on 08/07/18at 18:14; Admin Dose 4 MG; Start 08/07/18 at 16:00; Stop 08/07/18 at 20:00 Prochlorperazine (Compazine Inj) 5 mg PACU ORDER PRN IV NAUSEA/VOMITING; Start 08/07/18 at 16:00; Stop 08/07/18 at 20:00 Meperidine HCl (Demerol) 25 mg PACU ORDER PRN IV .RIGORS Last administered on 08/07/18at 18:14; Admin Dose 25 MG; Start 08/07/18 at 16:00; Stop 08/07/18 at 20:00 Diphenhydramine HCl (Benadryl) 25 mg PACU ORDER PRN IV .PRURITUS; Start 08/07/18 at 16:00; Stop 08/07/18 at 20:00 Lactated Ringer's 1,000 ml @ 80 mls/hr [id number] IV Last administered on 08/07/18at 18:35; Admin Dose 80 MLS/HR; Start 08/07/18 at 17:50 Oxycodone HCl (Roxicodone) 10 mg Q4H PRN PO .PAIN; Start 08/07/18 at 18:00 Oxycodone HCl (Roxicodone) 5 mg Q4H PRN PO .PAIN; Start 08/07/18 at 18:00 Hydromorphone HCl (Dilaudid) 1 mg Q3H PRN IV .BREAKTHROUGH PAIN; Start 08/07/18 at 18:00 Ondansetron HCl (Zofran Inj) 4 mg Q4H PRN IV NAUSEA/VOMITING; Start 08/08/18 at 18:00 Vancomycin HCl 250 ml @ 125 mls/hr Q12H IVPB Last administered on 08/07/18at 18:16; Admin Dose 125 MLS/HR; Start 08/07/18 at 18:00; Stop 08/08/18 at 07:59 Celecoxib (Celebrex) 100 mg BID PO ; Start 08/08/18 at 09:00 Gabapentin (Neurontin) 100 mg TID PO ; Start 08/07/18 at 21:00 Pantoprazole (Protonix Tab) 40 mg DAILY@06 PO ; Start 08/08/18 at 06:00 Senna/Docusate Sodium (Senokot-S) 2 tab BID PRN PO .CONSTIPATION; Start 08/07 at 18:00 Bisacodyl (Dulcolax Supp) 10 mg DAILY PRN DC .CONSTIPATION; Start 08/07/18 at 18:00 Ketorolac Tromethamine (Toradol) 15 mg Q6H PRN IV .PAIN; Start 08/07/18 at 18:00; Stop 08/09/18 at 17:59 IV Flush (NS 3 ml) 3 ml per protocol IV ; Start 08/07/18 at 18:00 Aspirin (Halfprin) 81 mg BID PO ; Start 08/08/18 at 09:00 Allergies: Coded Allergies: oxacillin (Verified Allergy, Severe, 08/07/18) dizziness and weakness of extremities. Pt tolerates cefazolin. Past Surgical History Past Surgical Hx: other (RTHA 09/01, I&D 12/30, csection) Family History Significant Family History: no pertinent family hx Social History Alcohol Use: none Smoking Status: Never smoker Drug Use: none Exam/Review of Systems Exam Vitals Vital Signs Date Temp Pulse Resp B/P (MAP) Pulse Ox O2 O2 Flow FiO2 Time Delivery Rate 08/07/18 98.3 17:58 08/07/18 90 16 157/83 98 Room Air 11:53 (107) Physical exam General: Patient is a pleasant female, mild distress secondary to nausea. pale complexion HEENT: Atraumatic, normocephalic. The pupils are equal, round and reactive. Extraocular motor are intact Neck: Supple with full range of motion. No rigidity or meningismus Chest: Nontender Lungs: Clear to auscultation bilaterally no crackles rales or wheezing Heart: Normal S1-S2, Regular rhythm and rate. No murmur, S3, or S4 Abdomen: obese, Soft , nontender, nondistended , bowel sounds are present. No guarding no rebound tenderness , No masses or organomegaly. No costovertebral temporal angle mass Extremities: Normal to inspection, no edema no cyanosis. Musculoskeletal: Dressing right hip with ice pack in place. no erythema or redness. no discharge or drainage Neurologic: Normal mental status, speech normal, cranial nerves II through XII are intact, motor and sensory are intact, no focal weakness Imaging Imaging PROCEDURE: XR right Hip. CLINICAL INDICATION: Status post right hip replacement revision. TECHNIQUE: AP and frog lateral views of the right hip were performed. COMPARISON: None. FINDINGS: Right femoral component of total hip replacement noted in place. Marked degenerate changes of the left hip joint with joint space narrowing and deformity of the femoral head. Acetabular roof spurring. Intact pelvis. IMPRESSION: 1. Right femoral component of total hip replacement noted in place. 2. Degenerate changes of the left hip joint. RPTAT:AAJJ Physician Piyush Date Time Electronically viewed and signed by Physician Piyush on 08/07/2018 19:02 CARLO ESPITIA MD Aug 07, 2018 19:05
--- NOTE | 2018-08-07 19:43 | NUR ---
PACU: Transferred patient to room 410A via bed, AAOX4 Vss HOB @ semi fernandes position, breathing with ease, right hip dressing dry & intact place ice pack over dressing, scd placed on both legs, legs moving well, cap refill<3 sec, pedal pulse good, legs warm to touch,given pain medications for comfort , pain tolerable, report given to NIYAH Harrell
[2018-08-07] MEDS: HYDROmorphONE 1 MG/ML SYG IV PRN (20:16)
[2018-08-07] MEDS: GABAPENTIN 100 MG CAP PO SCH (21:24)
[2018-08-07] MEDS: DULOXETINE 30 MG CAP DR PO SCH (21:24)
[2018-08-07] MEDS ORDERED: CEFAZOLIN 2 GM/50 ML (PMX) 50 ML IVPB SCH (22:00)
[2018-08-08] MEDS: oxyCODONE 5 MG TAB PO PRN ×2 (00:09→06:39)
[2018-08-08] MEDS: HYDROmorphONE 1 MG/ML SYG IV PRN (03:46)
[2018-08-08 05:00] VITALS: BP 115/62; PULSE 102; RESP 18
--- NOTE | 2018-08-08 05:40 | NUR ---
RN NOTES Critical lab result obtained Hg 6.[address] Donahue order to repeat CBC after an hour and type screen
[2018-08-08] MEDS: LACTATED RINGER'S 1,000 ML IV SCH ×4 (06:00→18:50)
--- NOTE | 2018-08-08 06:00 | NUR ---
EOSS Patient alert oriented, able to sleep through the night pain partially controlled with Dilaudid and roxicodone. Dressing on the Right hip was CDI. Had nausea at the start of the shift subsided after Zofran tolerated clear liquid will advance to regular diet. Voiding adequately , assisted patient to BSC tolerated well. Encouraged to use the IS. Right lower extremity good CMS, ice pack on the Right hip . Al;l needs attended, call light is within reach.
[2018-08-08] MEDS: PANTOPRAZOLE (EC) 40 MG TAB PO SCH (06:28)
[2018-08-08] MEDS: LEVOTHYROXINE 50 MCG TAB PO SCH (06:28)
[2018-08-08] MEDS: VANCOMYCIN 1 GM (PMX) 250 ML IVPB SCH (06:29)
--- NOTE | 2018-08-08 07:15 | NUR ---
OT EVAL: Pt is a 57 yo female presents with complication to R THR s/p stage 1 revision R XENIA, removal of implant with placement of antibiotic spacer 08/07/18. Pelvic xray indicates R XENIA changes and degenerative changes in L hip PMH: hypothyroidism, bilateral OA Precautions: WBAT RLE, fall risk PLOF: Patient lives with spouse and daughter in [facility] with 1 stair to enter. PT was independent with ADl's and ambulation prior to surgery. Has DME from previous XENIA CLOF: RN cleared pt for skilled OT eval. Pt received supine in bed and agreeable to tx. Pt is AOx4, stated 8/10 pain in right hip and demonstrated BUE AROM WFL. Pt performed supine->sit at EOB with Supervision. Seated at EOB pt demonstrated Fair balance and reported slight dizziness. Vitals stable- however pt's hemoglobin present below normal. Pt requested to use bathroom and brush teeth despite symptoms. Pt demonstrated STS and toilet transfer using FWW with CGA requiring vc for safety and positioning. Pt stood at bathroom sink with CGA while completing h/g tasks independently. Pt returned to bed stating pain has decreased to 5/10 and dizziness continues. RN notified. Pt will benefit from skilled OT tx 1x daily for 3-5x week (once completed blood transfusion) to increase safety awareness, balance, endurance and independence with self care. Recommendation: defer discharge disposition to MD, no additional DME recommended at this time.
[2018-08-08 08:35] VITALS: BP 120/60; RESP 18
--- NOTE | 2018-08-08 08:35 | NUR ---
Spoke to RN, blood draw just taken for repeat Hgb. Per chart review, previous report 6.8. Will hold PT evaluation until following resulted labs. RN aware and agreeable
[2018-08-08] MEDS: CALCIUM/VITAMIN D (500/200) TAB PO SCH (09:30)
[2018-08-08] MEDS: CELECOXIB 100 MG CAP PO SCH ×2 (09:30→20:48)
[2018-08-08] MEDS: DULOXETINE 30 MG CAP DR PO SCH ×2 (09:30→20:48)
[2018-08-08] MEDS: ASCORBIC ACID 500 MG TAB PO SCH (09:31)
[2018-08-08] MEDS: GABAPENTIN 100 MG CAP PO SCH ×3 (09:31→20:48)
[2018-08-08] MEDS: DOCUSATE SODIUM 250 MG CAP PO SCH (09:31)
--- NOTE | 2018-08-08 09:34 | QN ---
Documentation Comment ID Consult has been received. Dr. Hendrickson will see this patient later today. Thank you! EDGAR SANTOS NP Aug 08, 2018 09:34
[2018-08-08] MEDS: ASPIRIN (EC) 81 MG TAB PO SCH ×2 (09:38→20:48)
--- NOTE | 2018-08-08 10:10 | NUR ---
Lab values resulted, hgb 7.2, RN insisting pt to be seen by physical therapy. Spoke to patient, pt reports dizziness at rest, was up previously and lightheadedness/dizziness increased with minimal activity. Contacted MD, requested return phone call for clarification of clearance to continue PT evaluation. To follow up, RN and patient aware
--- NOTE | 2018-08-08 10:54 | CONS ---
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, s/p R hip aspiration with ~ 2 cc of cloudy yellow fluid aspirated on 07/28/2018 - H/o bacteremia on 07/26/2018 and 08/14/2018 d/t MSSA; TTE on 07/27/18 does not mention thrombus; repeat blood cx from 07/29/2018 show NGTD - S/p prosthetic R hip infection due to MSSA, s/p aspiration 12/25/2017; ESR 130 at that time, culture grew MSSA - S/p R hip irrigation, debridement, head and liner exchange 12/26/2017; intra- operative culture grew MSSA (s/p cefazolin x6 weeks then po cephalexin x3 months) - OA of b/l hip - H/o R total hip replacement 08/27/2017 - DJD - Obesity - BMI 34.2 - Hypothyroidism - Anemia - stable - "Weakness" with oxacillin, without rash, dyspnea, swelling, GI Sx. Tolerates cefazolin - ESR 128 Recommendations: - S/p periop vancomycin - Restart Cefazolin 2 gm IV q8 hours for known MSSA infection - Reinforced to use triflo 10x/hour while awake with verbalized understanding Management d/w patient, pt's son at bedside, NIYAH Sykes, and with Dr. Hendrickson. All questions answered. Therapeutic time provided. Consultation Date/Type/Reason Admit Date/Time Aug 07, 2018 at 10:08 Initial Consult Date 08/07/18 Type of Consult Infectious Disease Reason for Consultation Antibiotic recommendations for infected right total hip replacement Requesting Provider: MARCEL FARMER Date/Time of Note DATE: 08/08/18 TIME: 10:24 24 HR Interval Summary Free Text/Dictation States pain meds are not lasting long enough. R hip pain was 10/10 prior to pain med, and now 7/10 about one hour later but feels like pain is slowly starting to worsen again. No fever, chills, SOB, n/v/d, dysuria. Had normal BM yesterday. Brickeys lightheaded when OOB to BR earlier. AM Hgb 7.2. No active bleeding. Exam/Review of Systems Exam Vitals Vital Signs Date Temp Pulse Resp B/P (MAP) Pulse Ox O2 O2 Flow FiO2 Time Delivery Rate 08/08/18 98.0 18 120/60 92 08:35 (80) 08/08/18 102 05:00 08/07/18 Nasal 22:45 Cannula 08/07/18 3.0 19:08 Intake and Output 08/07/18 08/07/18 08/08/18 1515:00 23:00 07:00 IntakeIntake Total 0 ml 372 ml 1000 ml OutputOutput Total 500 ml BalanceBalance 0 ml -128 ml 1000 ml Constitutional: alert, oriented, well developed, obese Psych: no complaints, nl mood/affect Head: normocephalic, atraumatic Eyes: nl conjunctiva, nl lids, nl sclera ENMT: nl external ears & nose, nl lips & teeth, nl nasal mucosa & septum, mucosa pink and moist Neck: supple Respiratory: clear to auscultation, normal air movement, other (O2 at 2L via NC) Cardiovascular: regular rate and rhythm, nl pulses Gastrointestinal: soft, nl liver, spleen, non-tender Genitourinary - Female: other (No Mendoza) Musculoskeletal: nl extremities to inspection Extremities: normal pulses, other (LUE midline and L hand HL c/d/i) Neurological: nl speech Skin: nl turgor, other (R hip dressing c/d/i with expected TTP; ice pack in place) Results Result Diagram: 08/08/18 0822 08/08/18 0450 Results 24hrs Laboratory Tests Test 08/08/18 04:50 08/08/18 06:43 08/08/18 08:22 White Blood Count 11.9 #H 12.2 H Red Blood Count 2.39 L 2.50 L Hemoglobin 6.8 *L 7.2 L Hematocrit 22.2 L 23.3 L Mean Corpuscular Volume 92.9 93.2 Mean Corpuscular Hemoglobin 28.5 L 28.8 L Mean Corpuscular Hemoglobin Concent 30.6 L 30.9 L Red Cell Distribution Width 15.4 H 15.7 H Platelet Count 433 #H 501 H Mean Platelet Volume 9.0 8.9 Immature Granulocytes % 1.000 H 0.700 H Neutrophils % 77.6 H Segmented Neutrophils % (Manual) 86 H Lymphocytes % 15.8 Lymphocytes % (Manual) 9 L Monocytes % 5.7 Monocytes % (Manual) 4 Eosinophils % 0.0 Basophils % 0.2 Myelocytes % (Manual) 1 H Nucleated Red Blood Cells % 0.0 0.0 Immature Granulocytes # 0.120 H 0.090 H Neutrophils # 9.5 H Lymphocytes (Manual) 1.0 Lymphocytes # 1.9 Monocytes # 0.7 Monocytes # (Manual) 0.4 Eosinophils # 0.0 Basophils # 0.0 Myelocytes # 0.1 H Nucleated Red Blood Cells # 0.0 Platelet Estimate NORMAL Polychromasia 1+ Hypochromasia 2+ Anisocytosis 1+ Microcytosis 1+ Sodium Level 141 Potassium Level 4.2 Chloride Level 103 Carbon Dioxide Level 28 Anion Gap 10 Blood Urea Nitrogen 15 Creatinine 0.66 Est Glomerular Filtrat Rate mL/min > 60 Glucose Level 127 Calcium Level 9.1 Lab Scanned Report LAB Imaging Imaging Pelvic X-ray 08/07/2018: 1. Right femoral component of total hip replacement noted in place. 2. Degenerate changes of the left hip joint. EDGAR SANTOS NP Aug 08, 2018 10:38
--- NOTE | 2018-08-08 11:00 | NUR ---
PT evaluation Therapy day number 1 Evaluation Start Time 11:00 Evaluation End Time 11:45 Evaluation Total Time 45 min Subjective Current complaint of pain Pain Scale NUMERIC Pain Intensity 5 (0-10) Patient Stated Goal for Pain Relief 0 (0-10) Pain Level Comment patient premedicated Pre Treatment Vital Signs Stable Yes - BP 110/56 Transfer Training Start Time 11:45 Supine to Sit Supervised Transfer Sit to Stand Ability Supervised Bed Mobility Sit to Supine Minimum Assist Bed Transfer Ability Supervised Chair Transfer Ability Supervised Additional Mobility Comments with FWW, min A to assist with RLE Transfer Training End Time 12:15 Total Transfer Training Time 30 min (8-127) Gait Assist Levels Stand by Assist Assistive Devices Front Wheel Walker Ambulation Distance 2 feet Additional Gait Comments marching in place x5, limited by dizziness Weight Bearing Assessment Label Right Lower Extremity Weight Bearing Status Weight Bearing as Ira Static Sitting Balance Good Dynamic Sitting Balance Good Standing Static Balance Fair Dynamic Standing Balance Fair Safety Judgement Good Activity Tolerance Good Equipment Present A pump IV pump Post Treatment Pain Intensity 5 0-10 Quality Indicators Dizziness Additional Post Treatment Comment See note Total Treament Time 30 min (8-127) Total Minutes 75 Total Units 5 PT Technical Record Comment 57 yo female presents with complication to R THR s/p stage 1 revision R XENIA, removal of implant with placement of antibiotic spacer 08/07/18. Pelvic xray indicates R XENIA changes and degerative changes in L hip PMH: hypothyroidism, bilateral OA Precautions: WBAT RLE, fall risk PLOF: Patient previously mod I, lives with spouse and daughter in [facility] with 1 stair to enter. Has DME from previous XENIA S: Patient in bed, agreeable to PT evaluation. Contacted MD expressed concerns regarding weight bearing status and clearance to continue PT evaluation despite symptomatic low HgB. MD stated WBAT, and "do as much as tolerated". Patient to receive 1 unit of PRBC following PT evaluation O: PT evaluation completed, vitals before 110/56, dizziness with standing, and patient assisted back to bed with call light within reach, bed alarm activated, and all needs met. Spoke to RN regarding pt reponse to activity and PT plan of care. Extra time required throughout due to interations with nursing, MD, and chart review. Patient educated on hip precautions, importance of PT, and HEP as instructed in protocol. A: Patient presents with fair mobility throughout however primarily limited secondary to dizziness. Patient receptive to PT education and motivated to participate with good understanding of precautions and limitations to progression of physical therapy. Patient may ambulate with nursing and FWW when asymptomatic. Patient could benefit from skilled inpatient physical therapy to improve strength, endurance, and functional mobility P: progress gait as tolerated with platform step training, following transfusion Recommendation: defer discharge disposition to MD, no additional DME recommended at this time.
--- NOTE | 2018-08-08 11:04 | NUR ---
ELIEZER NOTES: MET WITH THE PT AT THE BEDSIDE. PT IS A 57 YRS OLD FEMALE WITH ADMITTING DX OF RIGHT TOTAL HIP PROSTESIS INFECTION. PRIOR TO THE ADMISSION, PT LIVED WITH HER IN HOUSE. PT USED FWW AND A CANE AT HOME. PT DOES NOT NEED BSC AND SHOWER CHAIR. PT HAS [facility] HCP [phone] JOSE, ASSIGNED CM. THIS CM INFORMED [facility] ELIEZER JOSE [phone] ABOUT THE PT'S ORDER FOR HH AND BLOOD DRAW. HE AGREED TO MAKE ARRANGEMENTS. FOR DC PLANNING ARRANGEMENTS AND DC ISSUES, PLEASE CALL [facility] JOSE [phone] DIRECTLY. [facility] MAKES DC ARRANGEMENTS FOR THEIR MEMBER. SHE TAYLOR CM [phone] Addendum: 08/08/18 at 1107 by SHE BASSETT CM Amended: Links added.
[2018-08-08] MEDS: HYDROCODONE/APAP (10/325) TAB PO PRN ×2 (11:54→19:34)
--- NOTE | 2018-08-08 12:46 | CONS ---
Assessment/Plan Assessment/Plan Hospital Course (Demo Recall) SUBJECTIVE: Lying in bed comfortably. No acute discomfort. No fevers. OBJECTIVE: Vital signs-see below PHYSICAL EXAM: Constitutional: Well-developed, adequately built, lying in bed comfortably. Psych: nl mood/affect, no complaints Head: atraumatic, normocephalic Eyes: nl conjunctiva, nl sclera ENMT: mucosa pink and moist, nl external ears & nose Neck: non-tender, supple Respiratory: clear to auscultation, normal air movement Cardiovascular: nl pulses, regular rate and rhythm Gastrointestinal: non-tender, soft, bowel sounds active in all 4 quadrants. Musculoskeletal/extremities: Dressing with packing on right hip. No oozing noted outside. Nl extremities to inspection, motor strength equal bilaterally, no focal deficit. Normal pulses,no cyanosis, no edema. Neurological: Alert oriented 3,nl speech, nl strength Skin: nl turgor ASSESSMENT/PLAN:57 yo F with PMH hypothyroidism, bilateral OA of hip with complication to R THR requiring multiple procedures including washout and revision presented for elective stage I revision of right hip replacement. 1. 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 POD #1 - abx per ID - Ortho to manage post op care - pain control - PT/OT for discharge planning - will arrange for PICC line placement and HH for IV antibiotics when stable for discharge 2. Hypothyroidism - continue levothyroxine 3. Depression - continue home medications 4. Anemia, likely postoperative. -Getting a unit of PRBC -Add iron panel to a.m. lab. -Monitor H&H. Disposition - Continue current care and will assist with arrangement for PICC line and IV antibiotics once cleared for d/c DVT prophylaxis: Per orthopedic, on aspirin twice daily. PUD prophylaxis: PPI Patient is seen in collaboration with Dr. Lisa Consultation Date/Type/Reason Admit Date/Time Aug 07, 2018 at 10:08 Initial Consult Date 08/07/18 Requesting Provider: MARCEL FARMER Date/Time of Note DATE: 08/08/18 TIME: 12:45 Exam/Review of Systems Exam Vitals Vital Signs Date Temp Pulse Resp B/P (MAP) Pulse Ox O2 O2 Flow FiO2 Time Delivery Rate 08/08/18 98.0 18 120/60 92 08:35 (80) 08/08/18 102 05:00 08/07/18 Nasal 22:45 Cannula 08/07/18 3.0 19:08 Intake and Output 08/07/18 08/07/18 08/08/18 1515:00 23:00 07:00 IntakeIntake Total 0 ml 372 ml 1000 ml OutputOutput Total 500 ml BalanceBalance 0 ml -128 ml 1000 ml Results Result Diagram: 08/08/18 0822 08/08/18 0450 Results 24hrs Laboratory Tests Test 08/08/18 04:50 08/08/18 06:43 08/08/18 08:22 White Blood Count 11.9 #H 12.2 H Red Blood Count 2.39 L 2.50 L Hemoglobin 6.8 *L 7.2 L Hematocrit 22.2 L 23.3 L Mean Corpuscular Volume 92.9 93.2 Mean Corpuscular Hemoglobin 28.5 L 28.8 L Mean Corpuscular Hemoglobin Concent 30.6 L 30.9 L Red Cell Distribution Width 15.4 H 15.7 H Platelet Count 433 #H 501 H Mean Platelet Volume 9.0 8.9 Immature Granulocytes % 1.000 H 0.700 H Neutrophils % 77.6 H Segmented Neutrophils % (Manual) 86 H Lymphocytes % 15.8 Lymphocytes % (Manual) 9 L Monocytes % 5.7 Monocytes % (Manual) 4 Eosinophils % 0.0 Basophils % 0.2 Myelocytes % (Manual) 1 H Nucleated Red Blood Cells % 0.0 0.0 Immature Granulocytes # 0.120 H 0.090 H Neutrophils # 9.5 H Lymphocytes (Manual) 1.0 Lymphocytes # 1.9 Monocytes # 0.7 Monocytes # (Manual) 0.4 Eosinophils # 0.0 Basophils # 0.0 Myelocytes # 0.1 H Nucleated Red Blood Cells # 0.0 Platelet Estimate NORMAL Polychromasia 1+ Hypochromasia 2+ Anisocytosis 1+ Microcytosis 1+ Sodium Level 141 Potassium Level 4.2 Chloride Level 103 Carbon Dioxide Level 28 Anion Gap 10 Blood Urea Nitrogen 15 Creatinine 0.66 Est Glomerular Filtrat Rate mL/min > 60 Glucose Level 127 Calcium Level 9.1 Lab Scanned Report LAB JOHN NATARAJAN NP Aug 08, 2018 12:46
--- NOTE | 2018-08-08 13:30 | CONS ---
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, s/p R hip aspiration with ~ 2 cc of cloudy yellow fluid aspirated on 07/28/2018 - H/o bacteremia on 07/26/2018 and 08/14/2018 d/t MSSA; TTE on 07/27/18 does not mention thrombus; repeat blood cx from 07/29/2018 show NGTD - S/p prosthetic R hip infection due to MSSA, s/p aspiration 12/25/2017; ESR 130 at that time, culture grew MSSA - S/p R hip irrigation, debridement, head and liner exchange 12/26/2017; intra-operative culture grew MSSA (s/p cefazolin x6 weeks then po cephalexin x3 months) - OA of b/l hip - H/o R total hip replacement 08/27/2017 - DJD - Obesity - BMI 34.2 - Hypothyroidism - Anemia - stable - "Weakness" with oxacillin, without rash, dyspnea, swelling, GI Sx. Tolerates cefazolin - ESR 128 Recommendations: - S/p periop vancomycin - Restart Cefazolin 2 gm IV q8 hours for known MSSA infection for 6 weeks. - suggest to keep in midline Consultation Date/Type/Reason Admit Date/Time Aug 07, 2018 at 10:08 Date of Consultation: Aug 08, 2018 Type of Consult id Reason for Consultation abx recs Date/Time of Note DATE: 08/08/18 TIME: 13:27 Hx of Present Illness This is a 57 yo female with DJD who had R total hip replacement 08/27/2017. This was complicated by prosthetic R hip infection due to MSSA s/p aspiration 12/25/2017; ESR 130 at that time. Pt underwent R hip irrigation, debridement, head and liner exchange on 12/26/2017; the intra-op culture grew MSSA. Pt took IV cefazolin to complete total 6 week course IV antibiotic therapy followed by 3 months of PO cephalexin for chronic suppression. Pt was following up with Dr. Savage in the office and was doing well. On 07/03/2018 Pt presented at ER c/o R hip (groin) pain and fever. Blood cultures were negative and urine culture grew mixed bacteria. CT showed intact R hip arthroplasty without evidence of loosening or osteolysis, tiny joint effusion in R hip. Pt received IV vancomycin and pip/tazo, and was discharged on 07/06/2018. Pt took 7 days of antibiotic (name not available) after discharge. She was then readmitted at beginning of this year for recurrent infection. All cxs from blood and aspiration were MSSA. She has been on Cefazolin. She is now s/p stage I revision. Today she feels well after surgery. Constitutional: no complaints, improved Eyes: no complaints ENT: no complaints Respiratory: no complaints Cardiovascular: no complaints Gastrointestinal: no complaints Genitourinary: no complaints Musculoskeletal: no complaints Skin: no complaints Past Medical History Medical History: hypothyroid, other (osteoarthritis of hips s/p replacement) Home Meds Reported Medications Krill/Om-3/Dha/Epa/Phospho/Ast (Megared [place]-3 Krill Oil Sfgl) 1 Each Capsule, 1 EACH PO DAILY, CAP 08/07/18 Ca/D3/Mag#11/Zinc/Marine Service Station Attendant/Maxx/Bor (Caltrate 600+D Plus Tablet) 1 Each Tablet, 1 EACH PO DAILY, TAB 08/07/18 Ibuprofen* (Motrin*) 600 Mg Tab, 600 MG PO Q8H PRN for PAIN, TAB 08/07/18 Hydrocodone/Acetaminophen ([place] 5-325 Tablet) 1 Each Tablet, 1 EACH PO Q4 PRN for PAIN, TAB 08/07/18 Celecoxib* (Celebrex*) 100 Mg Capsule, 100 MG PO BID, CAP 08/07/18 Ascorbic Acid* (Vitamin C*) 500 Mg Capsule.sa, 1000 MG PO DAILY, CAP 08/07/18 Docusate Sodium* (Colace*) 250 Mg Capsule, 250 MG PO DAILY, #30 CAP 08/07/18 Aspirin* (Aspirin*) 325 Mg Tablet, 325 MG PO BID, TAB 08/07/18 Duloxetine Hcl* (Duloxetine Hcl*) 30 Mg Capsule.dr, 30 MG PO BID, #30 CAP 07/03/18 Levothyroxine Sodium* (Levothyroxine Sodium*) 50 Mcg Tablet, 50 MCG PO BEFORE BREAKFAST, #30 TAB 08/27/17 Tramadol HCl (Tramadol HCl) 50 Mg Tablet, 50 MG PO BID, #60 TAB 08/27/17 Discontinued Scripts Aspirin* (Aspirin* EC) 325 Mg Tab, 325 MG PO BID for for DVT prophylaxis for 14 Days, #28 TAB Prov:ROBERTO DUKES. 07/31/18 Docusate Sodium* (Colace*) 250 Mg Capsule, 250 MG PO DAILY, #30 CAP Prov:ROBERTO DUKES. 07/31/18 Pantoprazole* (Pantoprazole*) 40 Mg Tablet.dr, 40 MG PO DAILY@06, #30 TAB Prov:ROBERTO DUKES. 07/31/18 Hydrocodone/Acetaminophen (Hydrocodone-Acetamin 10-325 mg) 1 Each Tablet, 1 TAB PO Q6H PRN for MODERATE PAIN LEVEL 4-6, #20 TAB Prov:ROBERTO DUKES. 07/31/18 Medications Current Medications Lactated Ringer's 1,000 ml @ 125 mls/hr Q8H IV ; Start 08/07/18 at 06:00 Lactated Ringer's 1,000 ml @ 80 mls/hr [id number] IV Last administered on 08/08/18at 06:29; Admin Dose 80 MLS/HR; Start 08/07/18 at 17:50 Oxycodone HCl (Roxicodone) 10 mg Q4H PRN PO .PAIN Last administered on 08/08/18at 06:39; Admin Dose 10 MG; Start 08/07/18 at 18:00 Hydromorphone HCl (Dilaudid) 1 mg Q3H PRN IV .BREAKTHROUGH PAIN Last administered on 08/08/18at 03:46; Admin Dose 1 MG; Start 08/07/18 at 18:00 Ondansetron HCl (Zofran Inj) 4 mg Q4H PRN IV NAUSEA/VOMITING; Start 08/08/18 at 18:00 Celecoxib (Celebrex) 100 mg BID PO Last administered on 08/08/18at 09:30; Admin Dose 100 MG; Start 08/08/18 at 09:00 Gabapentin (Neurontin) 100 mg TID PO Last administered on 08/08/18at 13:14; Admin Dose 100 MG; Start 08/07/18 at 21:00 Pantoprazole (Protonix Tab) 40 mg DAILY@06 PO Last administered on 08/08/18 06:28; Admin Dose 40 MG; Start 08/08/18 at 06:00 Senna/Docusate Sodium (Senokot-S) 2 tab BID PRN PO .CONSTIPATION; Start 08/07/18 at 18:00 Bisacodyl (Dulcolax Supp) 10 mg DAILY PRN [place] .CONSTIPATION; Start 08/07/18 at 18:00 Ketorolac Tromethamine (Toradol) 15 mg Q6H PRN IV .PAIN Last administered on 08/08/18 09:38; Admin Dose 15 MG; Start 08/07/18 at 18:00; Stop 08/09/18 at 17:59 IV Flush (NS 3 ml) 3 ml per protocol IV ; Start 08/07/18 at 18:00 Aspirin (Halfprin) 81 mg BID PO Last administered on 08/08/18 09:38; Admin Dose 81 MG; Start 08/08/18 at 09:00 Ascorbic Acid (Vitamin C) 1,000 mg DAILY PO Last administered on 08/08/18 09:31; Admin Dose 1,000 MG; Start 08/08/18 at 09:00 Docusate Sodium (Colace) 250 mg DAILY PO Last administered on 08/08/18 09:31; Admin Dose 250 MG; Start 08/08/18 at 09:00 Duloxetine HCl (Cymbalta) 30 mg BID PO Last administered on 08/08/18 09:30; Admin Dose 30 MG; Start 08/07/18 at 21:00 Levothyroxine Sodium (Synthroid) 50 mcg BEFORE BREAKFAST PO Last administered on 08/08/18 06:28; Admin Dose 50 MCG; Start 08/08/18 at 07:00 Calcium/Vitamin D (Oyster Shell/ Vit-D (500/200)) 1 tab DAILY PO Last administered on 08/08/18 09:30; Admin Dose 1 TAB; Start 08/08/18 at 09:00 Acetaminophen/ Hydrocodone Bitart ([place] (10/325)) 1 tab Q4H PRN PO MODERATE PAIN LEVEL 4-6 Last administered on 08/08/18 11:54; Admin Dose 1 TAB; Start 08/08/18 at 11:30 Allergies: Coded Allergies: oxacillin (Verified Allergy, Severe, 08/07/18) dizziness and weakness of extremities. Pt tolerates cefazolin. Past Surgical History Past Surgical Hx: other (RTHA 09/01, I&D 12/30, csection) Social History Alcohol Use: none Smoking Status: Never smoker Drug Use: none Exam/Review of Systems Exam Vitals Vital Signs Date Temp Pulse Resp B/P (MAP) Pulse Ox O2 O2 Flow FiO2 Time Delivery Rate 08/08/18 98.0 18 120/60 92 08:35 (80) 08/08/18 102 05:00 08/07/18 Nasal 22:45 Cannula 08/07/18 3.0 19:08 Intake and Output 08/07/18 08/07/18 08/08/18 1515:00 23:00 07:00 IntakeIntake Total 0 ml 372 ml 1000 ml OutputOutput Total 500 ml BalanceBalance 0 ml -128 ml 1000 ml Constitutional: alert, oriented, well developed Psych: no complaints, nl mood/affect Head: normocephalic, atraumatic Eyes: nl conjunctiva, EOMI, nl lids, nl sclera, PERRL Respiratory: clear to auscultation, normal air movement Cardiovascular: regular rate and rhythm, nl pulses Gastrointestinal: soft, nl liver, spleen, non-tender Extremities: other (hip bandaged) Neurological: SHELL FREEZING 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 OPERATOR II-XII 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, nl mental status, nl speech, nl strength Results Result Diagram: 08/08/18 0822 08/08/18 0450 Results 24hrs Laboratory Tests Test 08/08/18 04:50 08/08/18 06:43 08/08/18 08:22 White Blood Count 11.9 #H 12.2 H Red Blood Count 2.39 L 2.50 L Hemoglobin 6.8 *L 7.2 L Hematocrit 22.2 L 23.3 L Mean Corpuscular Volume 92.9 93.2 Mean Corpuscular Hemoglobin 28.5 L 28.8 L Mean Corpuscular Hemoglobin Concent 30.6 L 30.9 L Red Cell Distribution Width 15.4 H 15.7 H Platelet Count 433 #H 501 H Mean Platelet Volume 9.0 8.9 Immature Granulocytes % 1.000 H 0.700 H Neutrophils % 77.6 H Segmented Neutrophils % (Manual) 86 H Lymphocytes % 15.8 Lymphocytes % (Manual) 9 L Monocytes % 5.7 Monocytes % (Manual) 4 Eosinophils % 0.0 Basophils % 0.2 Myelocytes % (Manual) 1 H Nucleated Red Blood Cells % 0.0 0.0 Immature Granulocytes # 0.120 H 0.090 H Neutrophils # 9.5 H Lymphocytes (Manual) 1.0 Lymphocytes # 1.9 Monocytes # 0.7 Monocytes # (Manual) 0.4 Eosinophils # 0.0 Basophils # 0.0 Myelocytes # 0.1 H Nucleated Red Blood Cells # 0.0 Platelet Estimate NORMAL Polychromasia 1+ Hypochromasia 2+ Anisocytosis 1+ Microcytosis 1+ Sodium Level 141 Potassium Level 4.2 Chloride Level 103 Carbon Dioxide Level 28 Anion Gap 10 Blood Urea Nitrogen 15 Creatinine 0.66 Est Glomerular Filtrat Rate mL/min > 60 Glucose Level 127 Calcium Level 9.1 Iron Level 27 L Total Iron Binding Capacity 232 L Percent Iron Saturation 12 L Lab Scanned Report LAB FOREST BLANTON MD Aug 08, 2018 13:30
[2018-08-08 14:00] VITALS: BP 128/64; PULSE 90; RESP 18
[2018-08-08] MEDS ORDERED: ONDANSETRON 4 MG INJ IV PRN (18:00)
--- NOTE | 2018-08-08 18:30 | NUR ---
RN EOSS: PATIENT IN BED, STABLE, VS-WNL, NOT IN DISTRESS OR DISCOMFORT AT THIS TIME, ALERT ORIENTED AND ABLE TO MAKE NEEDS KNOWN, WITHOUT COMPLAINTS OF PAIN AT THIS TIME. TRANSFUSION OF 1 UNIT OF PRBC COMPLETED ORDERED, PATIENT TOLERATED WELL, DRESSING AT RIGHT HIP INTACT WITH MEPELEX, PATIENT SEEN BY PT AND CLEARED FOR NURSING , BUILT IN BED ALARM ACTIVATED FOR SAFETY, CALL LIGHT AND BEDSIDE TABLE PLACED WITHIN REACH, ALL NEEDS ATTENDED, ORDERS IMPLEMENTED , PATIENT KEPT CLEAN AND COMFORTABLE DURING MY SHIFT. WILL ENDORSE PLAN OF CARE TO ONCOMING RN.
[2018-08-08 19:40] VITALS: BP 119/56; PULSE 111; RESP 20
[2018-08-08 19:55] VITALS: BP 118/81; PULSE 63; RESP 20
[2018-08-09] MEDS: CEFAZOLIN 2 GM/50 ML (PMX) 50 ML IVPB SCH ×4 (00:17→23:04)
[2018-08-09 02:40] VITALS: BP 138/74; PULSE 102; RESP 20
[2018-08-09] MEDS: HYDROCODONE/APAP (10/325) TAB PO PRN ×4 (04:12→23:07)
--- NOTE | 2018-08-09 05:00 | NUR ---
EOSS Patient alert, oriented able to sleep through the night, pain controlled with [place]. Dressing on the Right hip was CDI with a good CMS on BLE, ice pack inplaced on the Right hip. Diet tolerated, no nausea no vomiting. Assisted to toilet using FWW, tolerated well. All needs attended, call light is within reach.
[2018-08-09] MEDS: PANTOPRAZOLE (EC) 40 MG TAB PO SCH (06:50)
[2018-08-09] MEDS: LEVOTHYROXINE 50 MCG TAB PO SCH (06:50)
[2018-08-09 07:31] VITALS: BP 117/67; PULSE 101; RESP 19
[2018-08-09] MEDS: DULOXETINE 30 MG CAP DR PO SCH ×2 (09:06→20:37)
[2018-08-09] MEDS: ASCORBIC ACID 500 MG TAB PO SCH (09:06)
[2018-08-09] MEDS: CALCIUM/VITAMIN D (500/200) TAB PO SCH (09:06)
[2018-08-09] MEDS: DOCUSATE SODIUM 250 MG CAP PO SCH (09:06)
[2018-08-09] MEDS: ASPIRIN (EC) 81 MG TAB PO SCH ×2 (09:06→20:37)
[2018-08-09] MEDS: GABAPENTIN 100 MG CAP PO SCH ×3 (09:06→20:37)
[2018-08-09] MEDS: CELECOXIB 100 MG CAP PO SCH ×2 (09:06→20:37)
--- NOTE | 2018-08-09 09:35 | NUR ---
[place] [facility] [place] : 1960 Age/Sex: 57/F Unit#: [id number] Room/Bed: 406/A User: Mela Caballero PTA Date: 08/09/18 09:10 Type: PT Technical Record Therapy day number 2 Subjective Current complaint of pain Pain Scale NUMERIC Pain Intensity 6 (0-10) Patient Stated Goal for Pain Relief 0 (0-10) Pain Level Comment R hip pain; premedicated Pre Treatment Vital Signs Stable Yes - 127/60 mmHg, 97bpm, 97% O2 sat on RA Transfer Training Start Time 09:10 Supine to Sit Minimum Assist Transfer Sit to Stand Ability Contact Guard Assist Toileting Ability Supervised Additional Mobility Comments HOB elevated, used BR, STS with FWW, Min A with R LE Transfer Training End Time 09:25 Total Transfer Training Time 15 min (8-127) Gait Training Start Time 09:26 Gait Assist Levels Stand by Assist Assistive Devices Front Wheel Walker Ambulation Distance 100 feet Additional Gait Comments 3 point antalgic gait, decreased sil Gait Training End Time 09:35 Total Gait Training Treatment Time 9 min (8-127) Weight Bearing Assessment Label Right Lower Extremity Weight Bearing Status Weight Bearing as Ira Static Sitting Balance Good Dynamic Sitting Balance Good Standing Static Balance Good Dynamic Standing Balance Fair plus Additional Balance Assessments Comments with fWW Safety Judgement Good Activity Tolerance Good Equipment Present A pump IV pump [facility] Care Post Treatment Pain Intensity 7 0-10 Additional Post Treatment Comment see PT note Total Treament Time 24 min (8-127) Total Minutes 24 Total Units 2 PT Technical Record Comment PT NOTE S: Pt reported 6/10 R hip pain. Agreed to skilled PT. Cleared and premedicated by NIYAH Al. O: Received awake in semi-fernandes. Pre tx vitals: 127/60 mmHg, 97 bpm, 97% O2 sat on RA. Noted pt had legs crossed; provided pt education on hip precautions to prevent dislocation; pt demo'd good understanding and stated she usually just uses L LE to hook under R LE to assist with mobility. See tech record for assist levels. Gait training with FWW, 3 point antalgic gait, decreased sil, no LOB. Returned back to room, assisted to bathroom; pt I with pericare. Pt performed hand hygiene and brushing teeth at sink with Supervision. Returned back to semi-fernandes, call light and all necessities within reach, SCDs on, ice packs on R hip. Informed RN. A: Pt ira tx well. Improved gait distance and no c/o dizziness throughout but required increased assistance with bed mobility as a result of increased pain level. P: Continue with POC. Perform 1 step curb training next session.
--- NOTE | 2018-08-09 12:30 | CONS ---
[facility] HCIS Consult Follow-up Patient Name: Eliane Acuña Unit Number: [id number] Date of : 1960 Patient Status: Admitted Inpatient Attending Doctor: Marcel Farmer Edit: SHELLY SAVAGE M.D. 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, s/p R hip aspiration with ~ 2 cc of cloudy yellow fluid aspirated on 07/28/2018 - H/o bacteremia on 07/26/2018 and 08/14/2018 d/t MSSA; TTE on 07/27/18 does not mention thrombus; repeat blood cx from 07/29/2018 show NGTD - S/p prosthetic R hip infection due to MSSA, s/p aspiration 12/25/2017; ESR 130 at that time, culture grew MSSA - S/p R hip irrigation, debridement, head and liner exchange 12/26/2017; intra- operative culture grew MSSA (s/p cefazolin x6 weeks then po cephalexin x3 months) - OA of b/l hip - H/o R total hip replacement 08/27/2017 - DJD - Obesity - BMI 34.2 - Hypothyroidism - Anemia - stable - Depression - "Weakness" with oxacillin, without rash, dyspnea, swelling, GI Sx. Tolerates cefazolin - ESR 128 on 07/27/18 Recommendations: - Continue Cefazolin 2 gm IV q8 hours for known MSSA infection for 6 weeks (08/08/18 - ); s/p lacy-op vanco - Suggest to keep in midline Plan was d/w patient and with Dr. Savage Thank you Consultation Date/Type/Reason Admit Date/Time Aug 07, 2018 at 10:08 Initial Consult Date 08/08/18 Requesting Provider: MARCEL FARMER Date/Time of Note DATE: 08/09/18 TIME: 12:12 24 HR Interval Summary Free Text/Dictation Low grade 99.0 temp, WBC improving 11.0 today. Per d/w patient, she states "i'm in allot of pain." She states she has been using ice packs which are helping with the pain. States she was oob with PT today and was able to ambulate. Denied all other ROS. Exam/Review of Systems Exam Vitals Vital Signs Date Temp Pulse Resp B/P (MAP) Pulse Ox O2 O2 Flow FiO2 Time Delivery Rate 08/09/18 99.0 101 19 117/67 100 Room Air 07:31 (84) 08/07/18 3.0 19:08 Intake and Output 08/08/18 08/08/18 08/09/18 1515:00 23:00 07:00 IntakeIntake Total 370 ml 1070 ml 650 ml BalanceBalance 370 ml 1070 ml 650 ml Constitutional: alert, oriented, well developed, obese Psych: nl mood/affect Head: normocephalic, atraumatic Eyes: nl conjunctiva, nl lids, nl sclera ENMT: nl external ears & nose, nl nasal mucosa & septum, mucosa pink and moist (no thrush noted) Neck: supple, non-tender Respiratory: clear to auscultation, normal air movement Cardiovascular: regular rate and rhythm, nl pulses, other (LUE Midline - site cdi.) Gastrointestinal: soft, non-tender, bowel sounds (normoactive ) Musculoskeletal: nl extremities to inspection, other (Right hip with cdi dressing, steri strips, intact.No erythema or swelling at the site. 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, nl mental status, nl speech Skin: nl turgor; No rash or lesions Results Result Diagram: 08/09/18 0444 08/09/18 0444 Results 24hrs Laboratory Tests Test 08/09/18 04:44 08/09/18 07:02 White Blood Count 11.0 H Red Blood Count 2.51 L Hemoglobin 7.2 L Hematocrit 23.1 L Mean Corpuscular Volume 92.0 Mean Corpuscular Hemoglobin 28.7 L Mean Corpuscular Hemoglobin Concent 31.2 L Red Cell Distribution Width 15.9 H Platelet Count 390 # Mean Platelet Volume 9.3 Immature Granulocytes % 1.000 H Neutrophils % 69.3 Lymphocytes % 17.0 Monocytes % 9.4 Eosinophils % 3.0 Basophils % 0.3 Nucleated Red Blood Cells % 0.0 Immature Granulocytes # 0.110 H Neutrophils # 7.6 H Lymphocytes # 1.9 Monocytes # 1.0 H Eosinophils # 0.3 Basophils # 0.0 Nucleated Red Blood Cells # 0.0 Sodium Level 139 Potassium Level 4.1 Chloride Level 100 Carbon Dioxide Level 27 Anion Gap 12 Blood Urea Nitrogen 17 Creatinine 1.04 H Est Glomerular Filtrat Rate mL/min 55 L Glucose Level 105 Calcium Level 9.0 Lab Scanned Report BLOOD TRANSFUSION Imaging Imaging Pelvis Xray 08/07/18 IMPRESSION: 1. Right femoral component of total hip replacement noted in place. 2. Degenerate changes of the left hip joint. Medications Medication Current Medications Lactated Ringer's 1,000 ml @ 80 mls/hr [id number] IV Last administered on 08/08/18at 06:29; Admin Dose 80 MLS/HR; Start 08/07/18 at 17:50 Oxycodone HCl (Roxicodone) 10 mg Q4H PRN PO .PAIN Last administered on 08/08/18at 06:39; Admin Dose 10 MG; Start 08/07/18 at 18:00 Hydromorphone HCl (Dilaudid) 1 mg Q3H PRN IV .BREAKTHROUGH PAIN Last administered on 08/08/18at 03:46; Admin Dose 1 MG; Start 08/07/18 at 18:00 Ondansetron HCl (Zofran Inj) 4 mg Q4H PRN IV NAUSEA/VOMITING; Start 08/08/18 at 18:00 Celecoxib (Celebrex) 100 mg BID PO Last administered on 08/09/18at 09:06; Admin Dose 100 MG; Start 08/08/18 at 09:00 Gabapentin (Neurontin) 100 mg TID PO Last administered on 08/09/18at 09:06; Admin Dose 100 MG; Start 08/07/18 at 21:00 Pantoprazole (Protonix Tab) 40 mg DAILY@06 PO Last administered on 08/09/18 06:50; Admin Dose 40 MG; Start 08/08/18 at 06:00 Senna/Docusate Sodium (Senokot-S) 2 tab BID PRN PO .CONSTIPATION; Start 08/07/18 at 18:00 Bisacodyl (Dulcolax Supp) 10 mg DAILY PRN [place] .CONSTIPATION; Start 08/07/18 at 18:00 Ketorolac Tromethamine (Toradol) 15 mg Q6H PRN IV .PAIN Last administered on 08/08/18 09:38; Admin Dose 15 MG; Start 08/07/18 at 18:00; Stop 08/09/18 at 17:59 IV Flush (NS 3 ml) 3 ml per protocol IV ; Start 08/07/18 at 18:00 Aspirin (Halfprin) 81 mg BID PO Last administered on 08/09/18 09:06; Admin Dose 81 MG; Start 08/08/18 at 09:00 Ascorbic Acid (Vitamin C) 1,000 mg DAILY PO Last administered on 08/09/18 09:06; Admin Dose 1,000 MG; Start 08/08/18 at 09:00 Docusate Sodium (Colace) 250 mg DAILY PO Last administered on 08/09/18 09:06; Admin Dose 250 MG; Start 08/08/18 at 09:00 Duloxetine HCl (Cymbalta) 30 mg BID PO Last administered on 08/09/18 09:06; Admin Dose 30 MG; Start 08/07/18 at 21:00 Levothyroxine Sodium (Synthroid) 50 mcg BEFORE BREAKFAST PO Last administered on 08/09/18 06:50; Admin Dose 50 MCG; Start 08/08/18 at 07:00 Calcium/Vitamin D (Oyster Shell/ Vit-D (500/200)) 1 tab DAILY PO Last administered on 08/09/18 09:06; Admin Dose 1 TAB; Start 08/08/18 at 09:00 Acetaminophen/ Hydrocodone Bitart ([place] (10/325)) 1 tab Q4H PRN PO MODERATE PAIN LEVEL 4-6 Last administered on 08/09/18 10:17; Admin Dose 1 TAB; Start 08/08/18 at 11:30 Cefazolin Sodium/ Dextrose 50 ml @ 100 mls/hr Q8 IVPB Last administered on 08/09/18at 06:50; Admin Dose 100 MLS/HR; Start 08/08/18 at 22:00 LOI MIRAMONTES NP Aug 09, 2018 12:27
--- NOTE | 2018-08-09 13:45 | NUR ---
PT NOTE [facility] Patient: Eliane Acuña : 1960 Age/Sex: 57/F Unit#: [id number] Room/Bed: 406/A User: Mela Caballero PTA Date: 08/09/18 13:20 Type: PT Technical Record Therapy day number 2 Subjective Current complaint of pain Pain Scale NUMERIC Pain Intensity 5 (0-10) Patient Stated Goal for Pain Relief 0 (0-10) Pain Level Comment R hip pain; premedicated Supine to Sit Minimum Assist Transfer Sit to Stand Ability Stand by Assist Bed Mobility Sit to Supine Minimum Assist Toileting Ability Supervised Gait Training Start Time 13:20 Gait Assist Levels Supervised Assistive Devices Front Wheel Walker Ambulation Distance 180 feet Additional Gait Comments 3 point gait, slightly improved foot clearance; limited knee flexion Gait Training End Time 13:45 Total Gait Training Treatment Time 25 min (8-127) Weight Bearing Assessment Label Right Lower Extremity Weight Bearing Status Weight Bearing as Ira Stair Climbing Ability Contact Guard Assist Number of Stairs 2 Stairs Additional Stairs Assist Comments curb step training with FWW x2; steady Static Sitting Balance Good Dynamic Sitting Balance Good Standing Static Balance Good Dynamic Standing Balance Fair plus Additional Balance Assessments Comments with FWW Safety Judgement Good Activity Tolerance Good Equipment Present A pump IV pump Post Treatment Pain Intensity 5 0-10 Additional Post Treatment Comment see PT note Total Treament Time 25 min (8-127) Total Minutes 25 Total Units 2 PT Technical Record Comment PT NOTE S: "I slept most of the morning." Agreed to skilled PT. Cleared and premedicated by NIYAH Al. O: Received awake in semi-fernandes. See tech record for assist levels. Min A with R LE. Gait training with FWW, 3 point antalgic gait, slight R ER, VCs on neutral positioning; pt demo'd good understanding/return. Curb step training with FWW x2; steady with good sequencing. Returned to room. Assisted to bathroom. Returned back to bed, SCDs on, call light and all necessities within reach. A: Pt ira tx well. Increased gait trainig with improved foot clearance. Demo'd proper sequencing during curb training. Improved pain vs AM tx. P: Continue with POC as appropriate.
--- NOTE | 2018-08-09 14:51 | PN ---
Date/Time of Note Date/Time of Note DATE: 08/09/18 TIME: 14:50 Assessment/Plan Lines/Catheters IV Catheter Type (from Nrsg): Peripheral IV Mendoza in Place (from Nrsg): No Assessment/Plan Chief Complaint/Hosp Course 57-year-old female postop day #2 status post right septic total hip explantation with greater trochanteric osteotomy and placement of antibiotic spacer. Overall patient is doing well. Patient is on cefazolin per infectious disease. Plan: Pain control Physical therapy Continue antibiotics per infectious disease Continue to follow cultures Plan for IV antibiotics at home for 6 weeks. Discharge planning. Subjective 24 Hr Interval Summary Patient doing well No acute events overnight Pain is well controlled Exam/Review of Systems Vital Signs Vitals Vital Signs Date Temp Pulse Resp B/P (MAP) Pulse Ox O2 O2 Flow FiO2 Time Delivery Rate 08/09/18 99.0 101 19 117/67 100 Room Air 07:31 (84) 08/07/18 3.0 19:08 Intake and Output 08/08/18 08/08/18 08/09/18 1515:00 23:00 07:00 IntakeIntake Total 370 ml 1070 ml 650 ml BalanceBalance 370 ml 1070 ml 650 ml Exam Free Text/Dictation Right lower extremity: Dressing: clean, dry, and intact, no erythema Sensation intact to light touch in a sural, saphenous, deep peroneal, superficial peroneal, medial and lateral plantar nerve distribution. Motor is intact, patient able to dorsiflex and plantarflex ankle and extend and flex great toe. Dorsalis Pedis pulse +2, Brisk capillary refill. Compartments are soft. Calves non-tender to palpation bilaterally. Results Free Text/Dictation Intraoperative cultures pending. No growth to date. Result Diagram: 08/09/18 0444 08/09/18 0444 THERESE HASTINGS MD Aug 09, 2018 14:51
[2018-08-09 15:11] VITALS: BP 125/66; PULSE 97; RESP 18
--- NOTE | 2018-08-09 16:57 | NUR ---
RN NOTE =alert oriented comfortable with s/p rt hip revision incision intact and dry with no drainage noted . CMS checked intact with good sensation , and patient seen by PT today tolerated the procedure well ,. able to urinate without difficulty ,. diet tolerated no n/v medicated patient for pain as per pain mgt level. ABx given as order. =Midline Left upper arm dressing changed today , patency checked intact.
[2018-08-09 19:20] VITALS: BP 125/63; PULSE 104; RESP 20
[2018-08-10 02:35] VITALS: BP 124/69; PULSE 104; RESP 20
--- NOTE | 2018-08-10 05:00 | NUR ---
EOSS Patient alert, oriented pain controlled with [facility]. Able to sleep through the night, Dressing was CDI good CMS on BLE. Ambulate using FWW with a slow steady gait. Encouraged to use IS. Voiding adequately. All needs attended, call light is within reach.
[2018-08-10] MEDS: LEVOTHYROXINE 50 MCG TAB PO SCH (06:23)
[2018-08-10] MEDS: CEFAZOLIN 2 GM/50 ML (PMX) 50 ML IVPB SCH ×3 (06:23→21:00)
[2018-08-10] MEDS: PANTOPRAZOLE (EC) 40 MG TAB PO SCH (06:23)
[2018-08-10 07:30] VITALS: BP 129/71; PULSE 90; RESP 15
--- NOTE | 2018-08-10 07:31 | NUR ---
RN NOTES Obtained a Critical Hemoglobin of 6.9, notified Dr Donahue, order to transfuse 1 unit PRBC
--- NOTE | 2018-08-10 08:00 | NUR ---
PT RECEIVED IN BED. A,A,OX4. NOT IN ANY ACUTE DISTRESS. THE PLAN OF CARE DISCUSSED W/ THE PT, VERBALIZED UNDERSTANDING. CALL LIGHT IN REACH. PT ENCOURAGED TO CALL FOR ASSISTANCE. WILL CONT. MONITORING. WILL CONT. W/ THE PLAN OF CARE.
[2018-08-10] MEDS: CELECOXIB 100 MG CAP PO SCH ×2 (09:06→20:55)
[2018-08-10] MEDS: DULOXETINE 30 MG CAP DR PO SCH ×2 (09:06→20:54)
[2018-08-10] MEDS: DOCUSATE SODIUM 250 MG CAP PO SCH (09:06)
[2018-08-10] MEDS: HYDROCODONE/APAP (10/325) TAB PO PRN ×2 (09:06→15:24)
[2018-08-10] MEDS: CALCIUM/VITAMIN D (500/200) TAB PO SCH (09:07)
[2018-08-10] MEDS: ASPIRIN (EC) 81 MG TAB PO SCH ×2 (09:07→20:56)
[2018-08-10] MEDS: GABAPENTIN 100 MG CAP PO SCH ×3 (09:07→20:56)
[2018-08-10] MEDS: ASCORBIC ACID 500 MG TAB PO SCH (09:07)
--- NOTE | 2018-08-10 10:00 | NUR ---
Per chart review, Hgb 6.9 will be receiving 1 unit PRBC, spoke to patient and nurse. To follow up following transfusion as time permits. Patient reports currently not symptomatic
--- NOTE | 2018-08-10 10:15 | NUR ---
BLOOD TRANSFUSION BEGAN ORDERED. VS WNL. WILL CONT. MONITORING CLOSELY.
--- NOTE | 2018-08-10 10:30 | NUR ---
BLOOD TRANSFUSION IN PROGRESS, NO S/S OF ANY ADVERSE REACTION NOTED. WILL CONT. MONITORING.
--- NOTE | 2018-08-10 10:44 | CONS ---
Assessment/Plan Assessment/Plan Hospital Course (Demo Recall) SUBJECTIVE: Lying in bed comfortably. No acute discomfort. No fevers. Receiving blood transfusion. OBJECTIVE: Vital signs-see below PHYSICAL EXAM: Constitutional: Well-developed, adequately built, lying in bed comfortably. Psych: nl mood/affect, no complaints Head: atraumatic, normocephalic Eyes: nl conjunctiva, nl sclera ENMT: mucosa pink and moist, nl external ears & nose Neck: non-tender, supple Respiratory: clear to auscultation, normal air movement Cardiovascular: nl pulses, regular rate and rhythm Gastrointestinal: non-tender, soft, bowel sounds active in all 4 quadrants. Musculoskeletal/extremities: Dressing with packing on right hip. No oozing noted outside. Nl extremities to inspection, motor strength equal bilaterally, no focal deficit. Normal pulses,no cyanosis, no edema. Neurological: Alert oriented 3,nl speech, nl strength Skin: nl turgor ASSESSMENT/PLAN:57 yo F with PMH hypothyroidism, bilateral OA of hip with complication to R THR requiring multiple procedures including washout and revision presented for elective stage I revision of right hip replacement. 1. 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 POD #2 - abx per ID - Ortho to manage post op care - pain control - PT/OT for discharge planning - will arrange for PICC line placement and HH for IV antibiotics when stable for discharge 2. Hypothyroidism - continue levothyroxine 3. Depression - continue home medications 4. Anemia, likely postoperative. -H&H dropped again. Will give IV iron. Continue blood transfusion and repeat hemoglobin after transfusion. -Monitor H&H. Disposition - Continue current care and will assist with arrangement for PICC line and IV antibiotics once cleared for d/c DVT prophylaxis: Per orthopedic, on aspirin twice daily. PUD prophylaxis: PPI Patient is seen in collaboration with Dr. Lisa Consultation Date/Type/Reason Admit Date/Time Aug 07, 2018 at 10:08 Initial Consult Date 08/07/18 Requesting Provider: MARCEL FARMER Date/Time of Note DATE: 08/10/18 TIME: 10:43 Exam/Review of Systems Exam Vitals Vital Signs Date Temp Pulse Resp B/P (MAP) Pulse Ox O2 O2 Flow FiO2 Time Delivery Rate 08/10/18 98.0 90 15 129/71 100 Room Air 07:30 (90) 08/07/18 3.0 19:08 Intake and Output 08/09/18 08/09/18 08/10/18 1515:00 23:00 07:00 IntakeIntake Total 50 ml 1030 ml 500 ml BalanceBalance 50 ml 1030 ml 500 ml Results Result Diagram: 08/10/18 0451 08/10/18 0451 Results 24hrs Laboratory Tests Test 08/10/18 04:51 White Blood Count 8.3 # Red Blood Count 2.41 L Hemoglobin 6.9 *L Hematocrit 22.1 L Mean Corpuscular Volume 91.7 Mean Corpuscular Hemoglobin 28.6 L Mean Corpuscular Hemoglobin Concent 31.2 L Red Cell Distribution Width 15.7 H Platelet Count 352 Mean Platelet Volume 9.1 Immature Granulocytes % 1.200 H Neutrophils % 62.6 Segmented Neutrophils % (Manual) 69 Band Neutrophils % (Manual) 4 Lymphocytes % 19.3 Lymphocytes % (Manual) 14 L Monocytes % 11.7 H Monocytes % (Manual) 7 Eosinophils % 4.7 Eosinophils % (Manual) 6 Basophils % 0.5 Nucleated Red Blood Cells % 0.0 Immature Granulocytes # 0.100 H Neutrophils # 5.2 Neutrophils # (Manual) 5.8 Band Neutrophils # 0.3 Lymphocytes (Manual) 1.1 Lymphocytes # 1.6 Monocytes # 1.0 H Monocytes # (Manual) 0.5 Eosinophils # 0.4 Basophils # 0.0 Nucleated Red Blood Cells # 0.0 Platelet Estimate NORMAL Polychromasia 3+ Anisocytosis 2+ Microcytosis 2+ Ovalocytes 1+ Sodium Level 139 Potassium Level 4.0 Chloride Level 100 Carbon Dioxide Level 30 Anion Gap 9 Blood Urea Nitrogen 14 Creatinine 1.02 H Est Glomerular Filtrat Rate mL/min 56 L Glucose Level 98 Calcium Level 9.4 Medications Medication Current Medications Oxycodone HCl (Roxicodone) 10 mg Q4H PRN PO .PAIN Last administered on 08/08/18at 06:39; Admin Dose 10 MG; Start 08/07/18 at 18:00 Hydromorphone HCl (Dilaudid) 1 mg Q3H PRN IV .BREAKTHROUGH PAIN Last administered on 08/08/18at 03:46; Admin Dose 1 MG; Start 08/07/18 at 18:00 Ondansetron HCl (Zofran Inj) 4 mg Q4H PRN IV NAUSEA/VOMITING; Start 08/08/18 at 18:00 Celecoxib (Celebrex) 100 mg BID PO Last administered on 08/10/18 09:06; Admin Dose 100 MG; Start 08/08/18 at 09:00 Gabapentin (Neurontin) 100 mg TID PO Last administered on 08/10/18 09:07; Admin Dose 100 MG; Start 08/07/18 at 21:00 Pantoprazole (Protonix Tab) 40 mg DAILY@06 PO Last administered on 08/10/18 06:23; Admin Dose 40 MG; Start 08/08/18 at 06:00 Senna/Docusate Sodium (Senokot-S) 2 tab BID PRN PO .CONSTIPATION; Start 08/07/18 at 18:00 Bisacodyl (Dulcolax Supp) 10 mg DAILY PRN [place] .CONSTIPATION; Start 08/07/18 at 18:00 IV Flush (NS 3 ml) 3 ml per protocol IV ; Start 08/07/18 at 18:00 Aspirin (Halfprin) 81 mg BID PO Last administered on 08/10/18 09:07; Admin Dose 81 MG; Start 08/08/18 at 09:00 Ascorbic Acid (Vitamin C) 1,000 mg DAILY PO Last administered on 08/10/18 09:07; Admin Dose 1,000 MG; Start 08/08/18 at 09:00 Docusate Sodium (Colace) 250 mg DAILY PO Last administered on 08/10/18 09:06; Admin Dose 250 MG; Start 08/08/18 at 09:00 Duloxetine HCl (Cymbalta) 30 mg BID PO Last administered on 08/10/18 09:06; Admin Dose 30 MG; Start 08/07/18 at 21:00 Levothyroxine Sodium (Synthroid) 50 mcg BEFORE BREAKFAST PO Last administered on 08/10/18 06:23; Admin Dose 50 MCG; Start 08/08/18 at 07:00 Calcium/Vitamin D (Oyster Shell/ Vit-D (500/200)) 1 tab DAILY PO Last administered on 08/10/18 09:07; Admin Dose 1 TAB; Start 08/08/18 at 09:00 Acetaminophen/ Hydrocodone Bitart ([place] (10/325)) 1 tab Q4H PRN PO MODERATE PAIN LEVEL 4-6 Last administered on 1/27/19at 09:06; Admin Dose 1 TAB; Start 08/08/18 at 11:30 Cefazolin Sodium/ Dextrose 50 ml @ 100 mls/hr Q8 IVPB Last administered on 08/10/18at 06:23; Admin Dose 100 MLS/HR; Start 08/08/18 at 22:00 JOHN NATARAJAN NP Aug 10, 2018 10:44
--- NOTE | 2018-08-10 12:00 | CONS ---
Assessment/Plan Assessment/Plan Hospital Course (Demo Recall) LATE PROGRESS NOTE FOR 08/09/17 ENCOUNTER SUBJECTIVE: No events OBJECTIVE: Vital signs-see below PHYSICAL EXAM: Constitutional: Well-developed, adequately built, lying in bed comfortably. Psych: nl mood/affect, no complaints Head: atraumatic, normocephalic Eyes: nl conjunctiva, nl sclera ENMT: mucosa pink and moist, nl external ears & nose Neck: non-tender, supple Respiratory: clear to auscultation, normal air movement Cardiovascular: nl pulses, regular rate and rhythm Gastrointestinal: non-tender, soft, bowel sounds active in all 4 quadrants. Musculoskeletal/extremities: Dressing with packing on right hip. No oozing noted outside. Nl extremities to inspection, motor strength equal bilaterally, no focal deficit. Normal pulses,no cyanosis, no edema. Neurological: Alert oriented 3,nl speech, nl strength Skin: nl turgor ASSESSMENT/PLAN:57 yo F with PMH hypothyroidism, bilateral OA of hip with complication to R THR requiring multiple procedures including washout and revision presented for elective stage I revision of right hip replacement. 1. 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 POD #1 - abx per ID - Ortho to manage post op care - pain control - PT/OT for discharge planning - will arrange for PICC line placement and HH for IV antibiotics when stable for discharge 2. Hypothyroidism - continue levothyroxine 3. Depression - continue home medications 4. Anemia, likely postoperative. -s/p PRBC -stable HH -f/u iron panel. Disposition - Continue current care and will assist with arrangement for PICC line and IV antibiotics once cleared for d/c DVT prophylaxis: Per orthopedic, on aspirin twice daily. PUD prophylaxis: PPI Patient is seen in collaboration with Dr. Lisa Consultation Date/Type/Reason Admit Date/Time Aug 07, 2018 at 10:08 Initial Consult Date 08/07/18 Requesting Provider: MARCEL FARMER Date/Time of Note DATE: 08/10/18 TIME: 11:59 Exam/Review of Systems Exam Vitals Vital Signs Date Temp Pulse Resp B/P (MAP) Pulse Ox O2 O2 Flow FiO2 Time Delivery Rate 08/10/18 98.0 90 15 129/71 100 Room Air 07:30 (90) 08/07/18 3.0 19:08 Intake and Output 08/09/18 08/09/18 08/10/18 1515:00 23:00 07:00 IntakeIntake Total 50 ml 1030 ml 500 ml BalanceBalance 50 ml 1030 ml 500 ml Results Result Diagram: 08/10/18 0451 08/10/18 0451 Results 24hrs Laboratory Tests Test 08/10/18 04:51 White Blood Count 8.3 # Red Blood Count 2.41 L Hemoglobin 6.9 *L Hematocrit 22.1 L Mean Corpuscular Volume 91.7 Mean Corpuscular Hemoglobin 28.6 L Mean Corpuscular Hemoglobin Concent 31.2 L Red Cell Distribution Width 15.7 H Platelet Count 352 Mean Platelet Volume 9.1 Immature Granulocytes % 1.200 H Neutrophils % 62.6 Segmented Neutrophils % (Manual) 69 Band Neutrophils % (Manual) 4 Lymphocytes % 19.3 Lymphocytes % (Manual) 14 L Monocytes % 11.7 H Monocytes % (Manual) 7 Eosinophils % 4.7 Eosinophils % (Manual) 6 Basophils % 0.5 Nucleated Red Blood Cells % 0.0 Immature Granulocytes # 0.100 H Neutrophils # 5.2 Neutrophils # (Manual) 5.8 Band Neutrophils # 0.3 Lymphocytes (Manual) 1.1 Lymphocytes # 1.6 Monocytes # 1.0 H Monocytes # (Manual) 0.5 Eosinophils # 0.4 Basophils # 0.0 Nucleated Red Blood Cells # 0.0 Platelet Estimate NORMAL Polychromasia 3+ Anisocytosis 2+ Microcytosis 2+ Ovalocytes 1+ Sodium Level 139 Potassium Level 4.0 Chloride Level 100 Carbon Dioxide Level 30 Anion Gap 9 Blood Urea Nitrogen 14 Creatinine 1.02 H Est Glomerular Filtrat Rate mL/min 56 L Glucose Level 98 Calcium Level 9.4 Medications Medication Current Medications Oxycodone HCl (Roxicodone) 10 mg Q4H PRN PO .PAIN Last administered on 08/08/18at 06:39; Admin Dose 10 MG; Start 08/07/18 at 18:00 Hydromorphone HCl (Dilaudid) 1 mg Q3H PRN IV .BREAKTHROUGH PAIN Last administered on 08/08/18at 03:46; Admin Dose 1 MG; Start 08/07/18 at 18:00 Ondansetron HCl (Zofran Inj) 4 mg Q4H PRN IV NAUSEA/VOMITING; Start 08/08/18 at 18:00 Celecoxib (Celebrex) 100 mg BID PO Last administered on 08/10/18 09:06; Admin Dose 100 MG; Start 08/08/18 at 09:00 Gabapentin (Neurontin) 100 mg TID PO Last administered on 08/10/18 09:07; Admin Dose 100 MG; Start 08/07/18 at 21:00 Pantoprazole (Protonix Tab) 40 mg DAILY@06 PO Last administered on 08/10/18 06:23; Admin Dose 40 MG; Start 08/08/18 at 06:00 Senna/Docusate Sodium (Senokot-S) 2 tab BID PRN PO .CONSTIPATION; Start 08/07/18 at 18:00 Bisacodyl (Dulcolax Supp) 10 mg DAILY PRN [place] .CONSTIPATION; Start 08/07/18 at 18:00 IV Flush (NS 3 ml) 3 ml per protocol IV ; Start 08/07/18 at 18:00 Aspirin (Halfprin) 81 mg BID PO Last administered on 08/10/18 09:07; Admin Dose 81 MG; Start 08/08/18 at 09:00 Ascorbic Acid (Vitamin C) 1,000 mg DAILY PO Last administered on 08/10/18 09:07; Admin Dose 1,000 MG; Start 08/08/18 at 09:00 Docusate Sodium (Colace) 250 mg DAILY PO Last administered on 08/10/18 09:06; Admin Dose 250 MG; Start 08/08/18 at 09:00 Duloxetine HCl (Cymbalta) 30 mg BID PO Last administered on 08/10/18 09:06; Admin Dose 30 MG; Start 08/07/18 at 21:00 Levothyroxine Sodium (Synthroid) 50 mcg BEFORE BREAKFAST PO Last administered on 08/10/18 06:23; Admin Dose 50 MCG; Start 08/08/18 at 07:00 Calcium/Vitamin D (Oyster Shell/ Vit-D (500/200)) 1 tab DAILY PO Last admini stered on 08/10/18 09:07; Admin Dose 1 TAB; Start 08/08/18 at 09:00 Acetaminophen/ Hydrocodone Bitart ([place] (10/325)) 1 tab Q4H PRN PO MODERATE PAIN LEVEL 4-6 Last administered on 08/10/18 09:06; Admin Dose 1 TAB; Start 08/08/18 at 11:30 Cefazolin Sodium/ Dextrose 50 ml @ 100 mls/hr Q8 IVPB Last administered on 08/10/18at 06:23; Admin Dose 100 MLS/HR; Start 08/08/18 at 22:00 Ferric Sodium Gluconate Complex 125 mg/Sodium Chloride 100 ml @ 100 mls/hr DAILY@1300 IVPB ; Start 08/10/18 at 13:00; Stop 08/12/18 at 13:59 JOHN NATARAJAN NP Aug 10, 2018 12:00
--- NOTE | 2018-08-10 12:11 | CONS ---
[facility] HCIS Consult Follow-up Patient Name: Eliane Acuña Unit Number: [id number] Date of : 1960 Patient Status: Admitted Inpatient Attending Doctor: Marcel Farmer Edit: SHELLY SAVAGE M.D. 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, s/p R hip aspiration with ~ 2 cc of cloudy yellow fluid aspirated on 07/28/2018 - H/o bacteremia on 07/26/2018 and 08/14/2018 d/t MSSA; TTE on 07/27/18 does not mention thrombus; repeat blood cx from 07/29/2018 show NGTD - S/p prosthetic R hip infection due to MSSA, s/p aspiration 12/25/2017; ESR 130 at that time, culture grew MSSA - S/p R hip irrigation, debridement, head and liner exchange 12/26/2017; intra- operative culture grew MSSA (s/p cefazolin x6 weeks then po cephalexin x3 months) - R lateral above the knee swelling - without erythema or tenderness to palpation - if worsens will order ultrasound - OA of b/l hip - H/o R total hip replacement 08/27/2017 - DJD - Obesity - BMI 34.2 - Hypothyroidism - Anemia - stable - Depression - "Weakness" with oxacillin, without rash, dyspnea, swelling, GI Sx. Tolerates cefazolin - ESR 128 on 07/27/18 Recommendations: - Continue Cefazolin 2 gm IV q8 hours for known MSSA infection for 6 weeks (08/08/18 - ); s/p lacy-op vanco - Suggest to keep in midline Plan was d/w patient and with Dr. Savage Thank you Consultation Date/Type/Reason Admit Date/Time Aug 07, 2018 at 10:08 Initial Consult Date 08/08/18 Type of Consult ID Requesting Provider: MARCEL FARMER Date/Time of Note DATE: 08/10/18 TIME: 11:58 24 HR Interval Summary Free Text/Dictation Pt has remained afebrile, low grade 99.2 tmax overnight. Pt states her pain max today is 5/10. She states she notices some swelling on her right knee that wasn't there yesterday which is not painful or "bothering me" but "I wonder why it's there" she says. She denies feeling of fevers, chills, night sweats, sob, cp, n/v/d, dysuria, pruritis, or rash. Patient is receiving 1u PRBC today for Hgb 6.9. Exam/Review of Systems Exam Vitals Vital Signs Date Temp Pulse Resp B/P (MAP) Pulse Ox O2 O2 Flow FiO2 Time Delivery Rate 08/10/18 98.0 90 15 129/71 100 Room Air 07:30 (90) 08/07/18 3.0 19:08 Intake and Output 08/09/18 08/09/18 08/10/18 1515:00 23:00 07:00 IntakeIntake Total 50 ml 1030 ml 500 ml BalanceBalance 50 ml 1030 ml 500 ml Allergies Coded Allergies oxacillin (Verified Allergy, Severe, 08/07/18) dizziness and weakness of extremities. Pt tolerates cefazolin. Constitutional: alert, oriented, well developed, obese Psych: nl mood/affect Head: normocephalic, atraumatic Eyes: nl conjunctiva, nl lids, nl sclera ENMT: nl external ears & nose, nl nasal mucosa & septum, mucosa pink and moist (no thrush noted) Neck: supple, non-tender Respiratory: clear to auscultation, normal air movement Cardiovascular: regular rate and rhythm, nl pulses, other (LUE midline site is cdi. ) Gastrointestinal: soft, non-tender, bowel sounds (normoactive ) Musculoskeletal: nl extremities to inspection, other (R hip dressing is cdi, steri strops intact, two small scabs noted above site. No erythema or swelling at the site. Some ttp unchanged since yesterday mid hip. ) Extremities: normal pulses, other (R lateral lower thigh directly above knee, noted swelling, soft, nontender to palpation, without erythema, patient able to bend knee unhindered. ) Neurological: MANAGER STAFFING II-XII intact, nl mental status, nl speech Skin: nl turgor; No rash or lesions Results Result Diagram: 08/10/18 0451 08/10/18 0451 Results 24hrs Laboratory Tests Test 08/10/18 04:51 White Blood Count 8.3 # Red Blood Count 2.41 L Hemoglobin 6.9 *L Hematocrit 22.1 L Mean Corpuscular Volume 91.7 Mean Corpuscular Hemoglobin 28.6 L Mean Corpuscular Hemoglobin Concent 31.2 L Red Cell Distribution Width 15.7 H Platelet Count 352 Mean Platelet Volume 9.1 Immature Granulocytes % 1.200 H Neutrophils % 62.6 Segmented Neutrophils % (Manual) 69 Band Neutrophils % (Manual) 4 Lymphocytes % 19.3 Lymphocytes % (Manual) 14 L Monocytes % 11.7 H Monocytes % (Manual) 7 Eosinophils % 4.7 Eosinophils % (Manual) 6 Basophils % 0.5 Nucleated Red Blood Cells % 0.0 Immature Granulocytes # 0.100 H Neutrophils # 5.2 Neutrophils # (Manual) 5.8 Band Neutrophils # 0.3 Lymphocytes (Manual) 1.1 Lymphocytes # 1.6 Monocytes # 1.0 H Monocytes # (Manual) 0.5 Eosinophils # 0.4 Basophils # 0.0 Nucleated Red Blood Cells # 0.0 Platelet Estimate NORMAL Polychromasia 3+ Anisocytosis 2+ Microcytosis 2+ Ovalocytes 1+ Sodium Level 139 Potassium Level 4.0 Chloride Level 100 Carbon Dioxide Level 30 Anion Gap 9 Blood Urea Nitrogen 14 Creatinine 1.02 H Est Glomerular Filtrat Rate mL/min 56 L Glucose Level 98 Calcium Level 9.4 Medications Medication Current Medications Oxycodone HCl (Roxicodone) 10 mg Q4H PRN PO .PAIN Last administered on 08/08/18at 06:39; Admin Dose 10 MG; Start 08/07/18 at 18:00 Hydromorphone HCl (Dilaudid) 1 mg Q3H PRN IV .BREAKTHROUGH PAIN Last a dministered on 08/08/18 03:46; Admin Dose 1 MG; Start 08/07/18 at 18:00 Ondansetron HCl (Zofran Inj) 4 mg Q4H PRN IV NAUSEA/VOMITING; Start 08/08/18 at 18:00 Celecoxib (Celebrex) 100 mg BID PO Last administered on 08/10/18 09:06; Admin Dose 100 MG; Start 08/08/18 at 09:00 Gabapentin (Neurontin) 100 mg TID PO Last administered on 08/10/18 09:07; Admin Dose 100 MG; Start 08/07/18 at 21:00 Pantoprazole (Protonix Tab) 40 mg DAILY@06 PO Last administered on 08/10/18 06:23; Admin Dose 40 MG; Start 08/08/18 at 06:00 Senna/Docusate Sodium (Senokot-S) 2 tab BID PRN PO .CONSTIPATION; Start 07/16 10/31 at 18:00 Bisacodyl (Dulcolax Supp) 10 mg DAILY PRN [place] .CONSTIPATION; Start 08/07/18 at 18:00 IV Flush (NS 3 ml) 3 ml per protocol IV ; Start 08/07/18 at 18:00 Aspirin (Halfprin) 81 mg BID PO Last administered on 08/10/18 09:07; Admin Dose 81 MG; Start 08/08/18 at 09:00 Ascorbic Acid (Vitamin C) 1,000 mg DAILY PO Last administered on 08/10/18 09:07; Admin Dose 1,000 MG; Start 08/08/18 at 09:00 Docusate Sodium (Colace) 250 mg DAILY PO Last administered on 08/10/18 09:06; Admin Dose 250 MG; Start 08/08/18 at 09:00 Duloxetine HCl (Cymbalta) 30 mg BID PO Last administered on 08/10/18 09:06; Admin Dose 30 MG; Start 08/07/18 at 21:00 Levothyroxine Sodium (Synthroid) 50 mcg BEFORE BREAKFAST PO Last administered on 08/10/18 06:23; Admin Dose 50 MCG; Start 08/08/18 at 07:00 Calcium/Vitamin D (Oyster Shell/ Vit-D (500/200)) 1 tab DAILY PO Last administered on 08/10/18 09:07; Admin Dose 1 TAB; Start 08/08/18 at 09:00 Acetaminophen/ Hydrocodone Bitart ([place] (10)) 1 tab Q4H PRN PO MODERATE PAIN LEVEL 4-6 Last administered on 08/10/18at 09:06; Admin Dose 1 TAB; Start 08/08/18 at 11:30 Cefazolin Sodium/ Dextrose 50 ml @ 100 mls/hr Q8 IVPB Last administered on 08/10/18at 06:23; Admin Dose 100 MLS/HR; Start 08/08/18 at 22:00 Ferric Sodium Gluconate Complex 125 mg/Sodium Chloride 100 ml @ 100 mls/hr DAILY@1300 IVPB ; Start 08/10/18 at 13:00; Stop 08/12/18 at 13:59 LOI MIRAMONTES NP Aug 10, 2018 12:08
[2018-08-10] MEDS: SOD FERRIC GLUC COMPLX 125 MG in SOD CHLORIDE 0.9% 100 ML IVPB SCH (12:45)
--- NOTE | 2018-08-10 12:45 | NUR ---
BLOOD TRANSFUSION ENDED. VS WNL. NO S/S OF ANY ADVERSE REACTION NOTED. WILL CONT. MONITORING.
--- NOTE | 2018-08-10 13:55 | NUR ---
PT note Therapy day number 3 Subjective Current complaint of pain Pain Scale NUMERIC Pain Intensity 4 (0-10) Patient Stated Goal for Pain Relief 0 (0-10) Pain Level Comment "much better than yesterday" Pre Treatment Vital Signs Stable Yes Supine to Sit Modified Independent Transfer Sit to Stand Ability Modified Independent Bed Mobility Sit to Supine Modified Independent Bed Transfer Ability Modified Independent Chair Transfer Ability Modified Independent Additional Mobility Comments with use of FWW Gait Training Start Time 13:55 Gait Assist Levels Modified Independent Assistive Devices Front Wheel Walker Ambulation Distance 300 feet Additional Gait Comments good sil, mild antalgic gait, no loss of balance noted Gait Training End Time 14:25 Total Gait Training Treatment Time 30 min (8-127) Weight Bearing Assessment Label Right Lower Extremity Weight Bearing Status Weight Bearing as Ira Stair Climbing Ability Modified Independent Number of Stairs 1 Stairs Additional Stairs Assist Comments with FWW, platform step Static Sitting Balance Good Dynamic Sitting Balance Good Standing Static Balance Good Dynamic Standing Balance Good Additional Balance Assessments Comments with FWW Safety Judgement Good Activity Tolerance Good Equipment Present A pump IV pump Post Treatment Pain Intensity 4 0-10 Additional Post Treatment Comment See note Total Treament Time 30 min (8-127) Total Minutes 30 Total Units 2 PT Technical Record Comment S: Patient in bed, agreeable to PT intervention. Pt received blood transfusion. Pt reports no dizziness or symptoms throughout, cleared for activity per RN. O: PT intervention completed, pt returned back to bed following therapy intervention with call light within reach and all needs met. No reports of increased pain with activity, no dizziness or shortness of breath with activity. Spoke to RN regarding pt response to activity and PT plan of care. A: Patient demonstrates strong mobility with FWW and good compliance with PT education. Pt presents with good sequencing with stairs, good safety awareness with ambulation and strong obstacle awareness throughout. Patient demonstrates mod I mobility throughout, all goals met, thus does not require additional skilled inpatient physical therapy at this time. P: Discharge physical therapy.
--- NOTE | 2018-08-10 17:52 | NUR ---
EOSS: PT'S HEMODYNAMICS AND RESPIR. STATUS ARE STABLE. NO COMPLICATIONS. NO CHANGES IN CONDITION. PAIN MGMT IS EFFECTIVE. WILL CONT. MONITORING. WILL CONT. W/ THE PLAN OF CARE.
[2018-08-10 20:06] VITALS: BP 122/74; PULSE 89; RESP 18
[2018-08-11] MEDS: HYDROCODONE/APAP (10/325) TAB PO PRN ×4 (00:17→21:10)
[2018-08-11] MEDS: PANTOPRAZOLE (EC) 40 MG TAB PO SCH (05:21)
[2018-08-11] MEDS: CEFAZOLIN 2 GM/50 ML (PMX) 50 ML IVPB SCH ×3 (05:21→22:35)
[2018-08-11] MEDS: LEVOTHYROXINE 50 MCG TAB PO SCH (06:11)
--- NOTE | 2018-08-11 06:19 | NUR ---
EOSS: Patient AAOX4, stable hemodynamically,afebrile, cooperative.Currently patient resting comfortably in the bed with eyes open in no distress, denies SOB, denies nausea or vomiting. Pain controlled with PRN medication with relief. All scheduled medications administered as ordered. Patient assisted to the bathroom and voided adequate amount clear yellow urine x 3. All patient's needs attended. Continuous monitoring provided. Will report to the next shift.
--- NOTE | 2018-08-11 08:00 | NUR ---
PT RECEIVED IN BED. A,A,OX4. NOT IN ANY ACUTE DISTRESS. DENIES ANY PAIN AT THIS TIME. THE PLAN OF CARE DISCUSSED W/ THE PT, VERBALIZED UNDERSTANDING. CALL LIGHT IN REACH. PT ENCOURAGED TO CALL FOR ASSISTANCE. WILL CONT. MONITORING. WILL CONT./ W/THE PLAN OF CARE.
[2018-08-11 08:24] VITALS: BP 149/79; PULSE 90; RESP 15
[2018-08-11] MEDS: GABAPENTIN 100 MG CAP PO SCH ×3 (09:14→21:06)
[2018-08-11] MEDS: DULOXETINE 30 MG CAP DR PO SCH ×2 (09:14→21:06)
[2018-08-11] MEDS: ASCORBIC ACID 500 MG TAB PO SCH (09:14)
[2018-08-11] MEDS: ASPIRIN (EC) 81 MG TAB PO SCH ×2 (09:14→21:05)
[2018-08-11] MEDS: DOCUSATE SODIUM 250 MG CAP PO SCH (09:14)
[2018-08-11] MEDS: CELECOXIB 100 MG CAP PO SCH ×2 (09:14→21:05)
[2018-08-11] MEDS: CALCIUM/VITAMIN D (500/200) TAB PO SCH (09:14)
--- NOTE | 2018-08-11 09:45 | CONS ---
Assessment/Plan Assessment/Plan Hospital Course (Demo Recall) SUBJECTIVE: No acute overnight episodes. OBJECTIVE: Vital signs-see below PHYSICAL EXAM: Constitutional: Well-developed, adequately built, lying in bed comfortably. Psych: nl mood/affect, no complaints Head: atraumatic, normocephalic Eyes: nl conjunctiva, nl sclera ENMT: mucosa pink and moist, nl external ears & nose Neck: non-tender, supple Respiratory: clear to auscultation, normal air movement Cardiovascular: nl pulses, regular rate and rhythm Gastrointestinal: non-tender, soft, bowel sounds active in all 4 quadrants. Musculoskeletal/extremities: Dressing with packing on right hip. No oozing noted outside. Nl extremities to inspection, motor strength equal bilaterally, no focal deficit. Normal pulses,no cyanosis, no edema. Neurological: Alert oriented 3,nl speech, nl strength Skin: nl turgor ASSESSMENT/PLAN:57 yo F with PMH hypothyroidism, bilateral OA of hip with complication to R THR requiring multiple procedures including washout and revision presented for elective stage I revision of right hip replacement. 1. 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 POD #2 - abx per ID - Ortho to manage post op care - pain control - PT/OT for discharge planning -Case management to arrange HH for IV antibiotics when stable for discharge per orthopedics 2. Hypothyroidism - continue levothyroxine 3. Depression - continue home medications 4. Acute blood loss Anemia w/iron deficiency -Status post PRBC. Continue IV iron. -Monitor H&H. Disposition -Overall, patient is medically cleared for outpatient follow-up once cleared from orthopedic surgery standpoint. Patient to continue IV antibiotic per ID recommendations. Case management to arrange home health for that. Patient to take iron supplementation ferrous sulfate 325 mg p.o. 3 times daily on discharge with Colace to avoid constipation. DVT prophylaxis: Per orthopedic, on aspirin twice daily. PUD prophylaxis: PPI Patient is seen in collaboration with Dr. DUKES. Consultation Date/Type/Reason Admit Date/Time Aug 07, 2018 at 10:08 Initial Consult Date 08/07/18 Requesting Provider: MARCEL FARMER Date/Time of Note DATE: 08/11/18 TIME: 09:42 Exam/Review of Systems Exam Vitals Vital Signs Date Temp Pulse Resp B/P (MAP) Pulse Ox O2 O2 Flow FiO2 Time Delivery Rate 08/11/18 98.6 90 15 149/79 93 Room Air 08:24 (102) 08/07/18 3.0 19:08 Intake and Output 08/10/18 08/10/18 08/11/18 1515:00 23:00 07:00 IntakeIntake Total 1200 ml 350 ml 430 ml BalanceBalance 1200 ml 350 ml 430 ml Results Result Diagram: 08/11/18 0430 08/11/18 0430 Results 24hrs Laboratory Tests Test 08/10/18 16:28 08/11/18 04:30 08/11/18 06:21 Hemoglobin 7.9 L 7.5 L Hematocrit 24.7 L 23.7 L White Blood Count 6.5 # Red Blood Count 2.63 L Mean Corpuscular Volume 90.1 Mean Corpuscular Hemoglobin 28.5 L Mean Corpuscular 31.6 L Hemoglobin Concent Red Cell Distribution Width 15.5 H Platelet Count 364 Mean Platelet Volume 9.1 Immature Granulocytes % 1.800 H Neutrophils % 58.5 Lymphocytes % 21.4 Monocytes % 11.7 H Eosinophils % 5.8 Basophils % 0.8 Nucleated Red Blood Cells % 0.0 Immature Granulocytes # 0.120 H Neutrophils # 3.8 Lymphocytes # 1.4 Monocytes # 0.8 Eosinophils # 0.4 Basophils # 0.1 Nucleated Red Blood Cells # 0.0 Sodium Level 142 Potassium Level 3.7 Chloride Level 98 Carbon Dioxide Level 31 Anion Gap 13 Blood Urea Nitrogen 17 Creatinine 1.12 H Est Glomerular Filtrat 51 L Rate mL/min Glucose Level 94 Calcium Level 9.6 Lab Scanned Report BLOOD TRANSFUSION Medications Medication Current Medications Oxycodone HCl (Roxicodone) 10 mg Q4H PRN PO .PAIN Last administered on 08/08/18at 06:39; Admin Dose 10 MG; Start 08/07/18 at 18:00 Hydromorphone HCl (Dilaudid) 1 mg Q3H PRN IV .BREAKTHROUGH PAIN Last administered on 08/08/18at 03:46; Admin Dose 1 MG; Start 08/07/18 at 18:00 Ondansetron HCl (Zofran Inj) 4 mg Q4H PRN IV NAUSEA/VOMITING; Start 08/08/18 at 18:00 Celecoxib (Celebrex) 100 mg BID PO Last administered on 08/11/18at 09:14; Admin Dose 100 MG; Start 08/08/18 at 09:00 Gabapentin (Neurontin) 100 mg TID PO Last administered on 08/11/18 09:14; Admin Dose 100 MG; Start 08/07/18 at 21:00 Pantoprazole (Protonix Tab) 40 mg DAILY@06 PO Last administered on 08/11/18 05:21; Admin Dose 40 MG; Start 08/08/18 at 06:00 Senna/Docusate Sodium (Senokot-S) 2 tab BID PRN PO .CONSTIPATION; Start 08/07/18 at 18:00 Bisacodyl (Dulcolax Supp) 10 mg DAILY PRN [place] .CONSTIPATION; Start 08/07/18 at 18:00 IV Flush (NS 3 ml) 3 ml per protocol IV ; Start 08/07/18 at 18:00 Aspirin (Halfprin) 81 mg BID PO Last administered on 08/11/18 09:14; Admin Dose 81 MG; Start 08/08/18 at 09:00 Ascorbic Acid (Vitamin C) 1,000 mg DAILY PO Last administered on 08/11/18 09:14; Admin Dose 1,000 MG; Start 08/08/18 at 09:00 Docusate Sodium (Colace) 250 mg DAILY PO Last administered on 08/11/18 09:14; Admin Dose 250 MG; Start 08/08/18 at 09:00 Duloxetine HCl (Cymbalta) 30 mg BID PO Last administered on 08/11/18 09:14; Admin Dose 30 MG; Start 08/07/18 at 21:00 Levothyroxine Sodium (Synthroid) 50 mcg BEFORE BREAKFAST PO Last administered on 08/11/18 06:11; Admin Dose 50 MCG; Start 08/08/18 at 07:00 Calcium/Vitamin D (Oyster Shell/ Vit-D (500/200)) 1 tab DAILY PO Last administered on 08/11/18 09:14; Admin Dose 1 TAB; Start 08/08/18 at 09:00 Acetaminophen/ Hydrocodone Bitart ([place] (10/325)) 1 tab Q4H PRN PO MODERATE PAIN LEVEL 4-6 Last administered on 08/11/18 06:11; Admin Dose 1 TAB; Start 08/08/18 at 11:30 Cefazolin Sodium/ Dextrose 50 ml @ 100 mls/hr Q8 IVPB Last administered on 08/11/18at 05:21; Admin Dose 100 MLS/HR; Start 08/08/18 at 22:00 Ferric Sodium Gluconate Complex 125 mg/Sodium Chloride 100 ml @ 100 mls/hr DAILY@1300 IVPB Last administered on 08/10/18at 12:45; Admin Dose 100 MLS/HR; Start 08/10/18 at 13:00; Stop 08/12/18 at 13:59 JOHN NATARAJAN NP Aug 11, 2018 09:45
[2018-08-11] MEDS: SOD FERRIC GLUC COMPLX 125 MG in SOD CHLORIDE 0.9% 100 ML IVPB SCH (13:24)
[2018-08-11] MEDS ORDERED: LIDOCAINE 1% (MPF) 5 ML VIAL SC ONE (16:00)
--- NOTE | 2018-08-11 16:00 | NUR ---
SPOKE W/ DR. FARMER REGARDING PT'S PLAN FOR DISCHARGE. STATED THAT HE IS NOT COMING TODAY TO SEE THE PT, ORDERED PICC LINE INSERTION FOR MCC ABX. PT MADE AWARE.
--- NOTE | 2018-08-11 18:30 | NUR ---
EOSS: PT'S HEMODYNAMICS AND RESPIR. STATUS ARE STABLE. NO COMPLICATIONS. NO CHANGES IN CONDITION. PAIN MGMT IS EFFECTIVE. WILL CONT. MONITORING. WILL W/ THE PLAN OF CARE.
[2018-08-11 20:05] VITALS: BP 152/75; PULSE 95; RESP 18
--- NOTE | 2018-08-11 22:56 | CONS ---
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 - s/p stage I revision of R hip replacement with placement of antibiotic spacer and antibiotic beads on 08/07/2018, intra-operative culture grew MSSA - s/p arthrocentesis of R hip on 07/28/2018, the synovial fluid culture grew MSSA - h/o sepsis due to recurrent prosthetic R hip infection and bacteremia - H/o bacteremia on 07/26/2018 and 08/14/2018 due to MSSA; transthoracic echo on 07/27/18 did not mention thrombus, valvular vegetation; repeat blood cultures from 07/29/2018 were negative - warmth and swelling of R front-lateral thigh without erythema - S/p prosthetic R hip infection due to MSSA, s/p aspiration 12/25/2017; ESR 130 at that time, culture grew MSSA - S/p R hip irrigation, debridement, head and liner exchange 12/26/2017; intra- operative culture grew MSSA (Pt took cefazolin x6 weeks then PO cephalexin x3 months) - OA of b/l hip - H/o R total hip replacement 08/27/2017 - DJD - Obesity - BMI 33.2 - Hypothyroidism - Anemia - stable - Depression - "Weakness" with oxacillin, without rash, dyspnea, swelling, GI Sx. Tolerates cefazolin Recommendations: - I had a detailed discussed with Pt and her re. her treatment of recurrent prosthetic joint infection and prevention of another episode of PJI - I explained the difficult nature of eradicating MSSA permanently from the prosthetic joint space: virulence factors (persistence) of S. aureus, microbiology of biofilm, treatment options - I recommend 6 weeks of cefazolin 2 gm IV q8 hours (08/08/18 - ); suggested end date: 09/19/2018. please order weekly CBC, BMP and ESR while Pt's on IV antibiotic - after the 6 week course of cefazolin, Pt will have an antibiotic-free period followed by reimplantation. The timing of reimplantation and additional tests to determine the optimal timing will be discussed among Pt, her , PMD, orthopedic. - I answered all their questions - the total time that I spent to care for this Pt on 08/11/2018 was 50 min Consultation Date/Type/Reason Admit Date/Time Aug 07, 2018 at 10:08 Initial Consult Date 08/08/18 Requesting Provider: MARCEL FARMER Date/Time of Note DATE: 08/11/18 TIME: 22:56 24 HR Interval Summary Constitutional: no complaints Detailed Summary Eyes: no complaints ENT: no complaints Respiratory: no complaints Cardiovascular: no complaints Gastrointestinal: no complaints Genitourinary: no complaints Musculoskeletal: bone/joint pain (rated at 6 at the surgical site), restricted range of motion Skin: no complaints Neurologic: no complaints Endocrine: no complaints Exam/Review of Systems Exam Vitals Vital Signs Date Temp Pulse Resp B/P (MAP) Pulse Ox O2 O2 Flow FiO2 Time Delivery Rate 08/11/18 98.6 95 18 152/75 96 Room Air 20:05 (100) 08/07/18 3.0 19:08 Intake and Output 08/10/18 08/10/18 08/11/18 1414:59 22:59 06:59 IntakeIntake Total 1200 ml 350 ml 430 ml BalanceBalance 1200 ml 350 ml 430 ml Constitutional: alert, oriented, well developed Psych: no complaints, nl mood/affect Head: normocephalic, atraumatic Eyes: nl conjunctiva, nl lids, nl sclera ENMT: nl external ears & nose, nl nasal mucosa & septum, mucosa pink and moist Neck: other (not swollen) Respiratory: clear to auscultation, normal air movement Cardiovascular: regular rate and rhythm, nl pulses Gastrointestinal: soft, non-tender; No distended, No tender Musculoskeletal: range of motion (limited around R hip), other (warm R thigh) Extremities: normal pulses; No edema Neurological: MANAGER OF RADIOLOGY II-XII intact Results Result Diagram: 08/11/18 0430 08/11/18 0430 Results 24hrs Laboratory Tests Test 08/11/18 04:30 08/11/18 06:21 White Blood Count 6.5 # Red Blood Count 2.63 L Hemoglobin 7.5 L Hematocrit 23.7 L Mean Corpuscular Volume 90.1 Mean Corpuscular Hemoglobin 28.5 L Mean Corpuscular Hemoglobin Concent 31.6 L Red Cell Distribution Width 15.5 H Platelet Count 364 Mean Platelet Volume 9.1 Immature Granulocytes % 1.800 H Neutrophils % 58.5 Lymphocytes % 21.4 Monocytes % 11.7 H Eosinophils % 5.8 Basophils % 0.8 Nucleated Red Blood Cells % 0.0 Immature Granulocytes # 0.120 H Neutrophils # 3.8 Lymphocytes # 1.4 Monocytes # 0.8 Eosinophils # 0.4 Basophils # 0.1 Nucleated Red Blood Cells # 0.0 Sodium Level 142 Potassium Level 3.7 Chloride Level 98 Carbon Dioxide Level 31 Anion Gap 13 Blood Urea Nitrogen 17 Creatinine 1.12 H Est Glomerular Filtrat Rate mL/min 51 L Glucose Level 94 Calcium Level 9.6 Lab Scanned Report BLOOD TRANSFUSION Medications Medication Current Medications Oxycodone HCl (Roxicodone) 10 mg Q4H PRN PO .PAIN Last administered on 08/08/18 06:39; Admin Dose 10 MG; Start 08/07/18 at 18:00 Hydromorphone HCl (Dilaudid) 1 mg Q3H PRN IV .BREAKTHROUGH PAIN Last administered on 08/08/18 03:46; Admin Dose 1 MG; Start 08/07/18 at 18:00 Ondansetron HCl (Zofran Inj) 4 mg Q4H PRN IV NAUSEA/VOMITING; Start 08/08/18 at 18:00 Celecoxib (Celebrex) 100 mg BID PO Last administered on 08/11/18 21:05; Admin Dose 100 MG; Start 08/08/18 at 09:00 Gabapentin (Neurontin) 100 mg TID PO Last administered on 08/11/18 21:06; Admin Dose 100 MG; Start 08/07/18 at 21:00 Pantoprazole (Protonix Tab) 40 mg DAILY@06 PO Last administered on 08/11/18 05:21; Admin Dose 40 MG; Start 08/08/18 at 06:00 Senna/Docusate Sodium (Senokot-S) 2 tab BID PRN PO .CONSTIPATION; Start 08/07/18 at 18:00 Bisacodyl (Dulcolax Supp) 10 mg DAILY PRN [place] .CONSTIPATION; Start 08/07/18 at 18:00 IV Flush (NS 3 ml) 3 ml per protocol IV ; Start 08/07/18 at 18:00 Aspirin (Halfprin) 81 mg BID PO Last administered on 08/11/18 21:05; Admin Dose 81 MG; Start 08/08/18 at 09:00 Ascorbic Acid (Vitamin C) 1,000 mg DAILY PO Last administered on 08/11/18 09:14; Admin Dose 1,000 MG; Start 08/08/18 at 09:00 Docusate Sodium (Colace) 250 mg DAILY PO Last administered on 08/11/18 09:14; Admin Dose 250 MG; Start 08/08/18 at 09:00 Duloxetine HCl (Cymbalta) 30 mg BID PO Last administered on 08/11/18 21:06; Admin Dose 30 MG; Start 08/07/18 at 21:00 Levothyroxine Sodium (Synthroid) 50 mcg BEFORE BREAKFAST PO Last administered on 08/11/18 06:11; Admin Dose 50 MCG; Start 08/08/18 at 07:00 Calcium/Vitamin D ([place]yster Shell/ Vit-D (500/200)) 1 tab DAILY PO Last administered on 08/11/18 09:14; Admin Dose 1 TAB; Start 08/08/18 at 09:00 Acetaminophen/ Hydrocodone Bitart ([place] (10/325)) 1 tab Q4H PRN PO MODERATE PAIN LEVEL 4-6 Last administered on 08/11/18 21:10; Admin Dose 1 TAB; Start 08/08/18 at 11:30 Cefazolin Sodium/ Dextrose 50 ml @ 100 mls/hr Q8 IVPB Last administered on 08/11/18 22:35; Admin Dose 100 MLS/HR; Start 08/08/18 at 22:00 Ferric Sodium Gluconate Complex 125 mg/Sodium Chloride 100 ml @ 100 mls/hr DAILY@1300 IVPB Last administered on 08/11/18 13:24; Admin Dose 100 MLS/HR; Start 08/10/18 at 13:00; Stop 08/12/18 at 13:59 SHELLY ADAM M.D. Aug 11, 2018 22:56
[2018-08-12] MEDS: CEFAZOLIN 2 GM/50 ML (PMX) 50 ML IVPB SCH ×2 (05:29→14:27)
[2018-08-12] MEDS: PANTOPRAZOLE (EC) 40 MG TAB PO SCH (05:30)
[2018-08-12 05:32] VITALS: BP 138/74; PULSE 86; RESP 19
[2018-08-12] MEDS: HYDROCODONE/APAP (10/325) TAB PO PRN (05:36)
--- NOTE | 2018-08-12 06:09 | NUR ---
EOSS: No adverse side effects from Ancef, no signs of infection at midline. Medicated with PRN [place] x2, no c/o uncontrolled pain. Anticipating PICC placement today.
[2018-08-12] MEDS: LEVOTHYROXINE 50 MCG TAB PO SCH (06:27)
[2018-08-12 07:48] VITALS: BP 144/78; PULSE 87; RESP 19
[2018-08-12] MEDS ORDERED: LIDOCAINE 1% (MPF) 5 ML VIAL SC ONE (08:30)
[2018-08-12] MEDS: ASPIRIN (EC) 81 MG TAB PO SCH (09:17)
[2018-08-12] MEDS: DULOXETINE 30 MG CAP DR PO SCH (09:17)
[2018-08-12] MEDS: CALCIUM/VITAMIN D (500/200) TAB PO SCH (09:17)
[2018-08-12] MEDS: GABAPENTIN 100 MG CAP PO SCH ×2 (09:17→12:55)
[2018-08-12] MEDS: CELECOXIB 100 MG CAP PO SCH (09:17)
[2018-08-12] MEDS: ASCORBIC ACID 500 MG TAB PO SCH (09:17)
[2018-08-12] MEDS: DOCUSATE SODIUM 250 MG CAP PO SCH (09:17)
--- NOTE | 2018-08-12 09:53 | CONS ---
Assessment/Plan Assessment/Plan Hospital Course (Demo Recall) SUBJECTIVE: No acute overnight episodes. OBJECTIVE: Vital signs-see below PHYSICAL EXAM: Constitutional: Well-developed, adequately built, lying in bed comfortably. Psych: nl mood/affect, no complaints Head: atraumatic, normocephalic Eyes: nl conjunctiva, nl sclera ENMT: mucosa pink and moist, nl external ears & nose Neck: non-tender, supple Respiratory: clear to auscultation, normal air movement Cardiovascular: nl pulses, regular rate and rhythm Gastrointestinal: non-tender, soft, bowel sounds active in all 4 quadrants. Musculoskeletal/extremities: Dressing with packing on right hip. No oozing noted outside. Nl extremities to inspection, motor strength equal bilaterally, no focal deficit. Normal pulses,no cyanosis, no edema. Neurological: Alert oriented 3,nl speech, nl strength Skin: nl turgor ASSESSMENT/PLAN:57 yo F with PMH hypothyroidism, bilateral OA of hip with complication to R THR requiring multiple procedures including washout and revision presented for elective stage I revision of right hip replacement. 1. 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 POD #2 - abx per ID - Ortho to manage post op care - pain control - PT/OT for discharge planning -Case management to arrange HH for IV antibiotics when stable for discharge per orthopedics 2. Hypothyroidism - continue levothyroxine 3. Depression - continue home medications 4. Acute blood loss Anemia w/iron deficiency -Status post PRBC. Continue IV iron. -Monitor H&H. Disposition -Agree with discharge planning on antibiotic continuation. I have also given a prescription for oral iron for outpatient anemia management. DVT prophylaxis: Per orthopedic, on aspirin twice daily. PUD prophylaxis: PPI Patient is seen in collaboration with Dr. DUKES. Consultation Date/Type/Reason Admit Date/Time Aug 07, 2018 at 10:08 Initial Consult Date 08/07/18 Requesting Provider: MARCEL FARMER Date/Time of Note DATE: 08/12/18 TIME: 09:51 Exam/Review of Systems Exam Vitals Vital Signs Date Temp Pulse Resp B/P (MAP) Pulse Ox O2 O2 Flow FiO2 Time Delivery Rate 08/12/18 98.1 87 19 144/78 98 07:48 (100) 08/12/18 Room Air 05:32 Intake and Output 08/11/18 08/11/1819 1414:59 22:59 06:59 IntakeIntake Total 100 ml 50 ml 100 ml BalanceBalance 100 ml 50 ml 100 ml Results Result Diagram: 08/12/1844208/12/18442 Results 24hrs Laboratory Tests Test 08/12/18 04:43 White Blood Count 5.6 Red Blood Count 2.67 L Hemoglobin 7.5 L Hematocrit 24.0 L Mean Corpuscular Volume 89.9 Mean Corpuscular Hemoglobin 28.1 L Mean Corpuscular Hemoglobin Concent 31.3 L Red Cell Distribution Width 15.7 H Platelet Count 366 Mean Platelet Volume 8.5 Immature Granulocytes % 3.400 H Neutrophils % 47.4 Lymphocytes % 23.7 Monocytes % 17.6 H Eosinophils % 7.0 Basophils % 0.9 Nucleated Red Blood Cells % 0.0 Immature Granulocytes # 0.190 H Neutrophils # 2.6 Lymphocytes # 1.3 Monocytes # 1.0 H Eosinophils # 0.4 Basophils # 0.1 Nucleated Red Blood Cells # 0.0 Sodium Level 142 Potassium Level 3.6 Chloride Level 97 Carbon Dioxide Level 33 H Anion Gap 12 Blood Urea Nitrogen 16 Creatinine 0.89 Est Glomerular Filtrat Rate mL/min > 60 Glucose Level 93 Calcium Level 9.6 Medications Medication Current Medications Oxycodone HCl (Roxicodone) 10 mg Q4H PRN PO .PAIN Last administered on 08/08/18at 06:39; Admin Dose 10 MG; Start 08/07/18 at 18:00 Hydromorphone HCl (Dilaudid) 1 mg Q3H PRN IV .BREAKTHROUGH PAIN Last administered on 08/08/18at 03:46; Admin Dose 1 MG; Start 08/07/18 at 18:00 Ondansetron HCl (Zofran Inj) 4 mg Q4H PRN IV NAUSEA/VOMITING; Start 08/08/18 at 18:00 Celecoxib (Celebrex) 100 mg BID PO Last administered on 08/12/18at 09:17; Admin Dose 100 MG; Start 08/08/18 at 09:00 Gabapentin (Neurontin) 100 mg TID PO Last administered on 08/12/18at 09:17; Admin Dose 100 MG; Start 08/07/18 at 21:00 Pantoprazole (Protonix Tab) 40 mg DAILY@06 PO Last administered on 1/29/19at 05:30; Admin Dose 40 MG; Start 08/08/18 at 06:00 Senna/Docusate Sodium (Senokot-S) 2 tab BID PRN PO .CONSTIPATION; Start 08/07/18 at 18:00 Bisacodyl (Dulcolax Supp) 10 mg DAILY PRN PA .CONSTIPATION; Start 08/07/18 at 18:00 IV Flush (NS 3 ml) 3 ml per protocol IV ; Start 08/07/18 at 18:00 Aspirin (Halfprin) 81 mg BID PO Last administered on 08/12/18 09:17; Admin Dose 81 MG; Start 08/08/18 at 09:00 Ascorbic Acid (Vitamin C) 1,000 mg DAILY PO Last administered on 08/12/18 09:17; Admin Dose 1,000 MG; Start 08/08/18 at 09:00 Docusate Sodium (Colace) 250 mg DAILY PO Last administered on 08/12/18 09:17; Admin Dose 250 MG; Start 08/08/18 at 09:00 Duloxetine HCl (Cymbalta) 30 mg BID PO Last administered on 08/12/18 09:17; Admin Dose 30 MG; Start 08/07/18 at 21:00 Levothyroxine Sodium (Synthroid) 50 mcg BEFORE BREAKFAST PO Last administered on 08/12/18 06:27; Admin Dose 50 MCG; Start 08/08/18 at 07:00 Calcium/Vitamin D (Oyster Shell/ Vit-D (500/200)) 1 tab DAILY PO Last administered on 08/12/18 09:17; Admin Dose 1 TAB; Start 08/08/18 at 09:00 Acetaminophen/ Hydrocodone Bitart ([place] (10/325)) 1 tab Q4H PRN PO MODERATE PAIN LEVEL 4-6 Last administered on 08/12/18 05:36; Admin Dose 1 TAB; Start 08/08/18 at 11:30 Cefazolin Sodium/ Dextrose 50 ml @ 100 mls/hr Q8 IVPB Last administered on 08/12/18 05:29; Admin Dose 100 MLS/HR; Start 08/08/18 at 22:00 Ferric Sodium Gluconate Complex 125 mg/Sodium Chloride 100 ml @ 100 mls/hr DAILY@1300 IVPB Last administered on 1/28/19at 13:24; Admin Dose 100 MLS/HR; Start 08/10/18 at 13:00; Stop 08/12/18 at 13:59 JOHN NATARAJAN NP Aug 12, 2018 09:53
--- NOTE | 2018-08-12 12:25 | NUR ---
PICC Insertion. Received patient in the [facility] Department via at bedside for peripherally inserted central catheter (PICC) insertion. Patient awake, alert, oriented x 4. Patient has had previous PICC's in the past. Procedure reviewed, patient agreed to proceed. Signed consent on chart for PICC. LUE PICC insertion attempted not able to advance wire at axillary vein possible stenosis. RUE prepped with chlorhexidene, then maximum barrier drape applied. 5 FR double lumen Arrow Power PICC inserted into brachial vein, intact, using U/S guidance and sterile technique. CXR x1 performed; tip confirmed in lower 1/[address] Wolfe. Total length 40cm 2cm exposed. RAC 37cm. Sterile dressing applied. Patient tolerated procedure well. RA Mid-Line removed, a bump noted above the mid-line.
[2018-08-12] MEDS: SOD FERRIC GLUC COMPLX 125 MG in SOD CHLORIDE 0.9% 100 ML IVPB SCH (12:56)
--- NOTE | 2018-08-12 12:59 | CONS ---
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 - s/p stage I revision of R hip replacement with placement of antibiotic spacer and antibiotic beads on 08/07/2018, intra-operative culture grew MSSA - s/p arthrocentesis of R hip on 07/28/2018, the synovial fluid culture grew MSSA - h/o sepsis due to recurrent prosthetic R hip infection and bacteremia - H/o bacteremia on 07/26/2018 and 08/14/2018 due to MSSA; transthoracic echo on 07/27/18 did not mention thrombus, valvular vegetation; repeat blood cultures from 07/29/2018 were negative - warmth and swelling of R front-lateral thigh without erythema - S/p prosthetic R hip infection due to MSSA, s/p aspiration 12/25/2017; ESR 130 at that time, culture grew MSSA - S/p R hip irrigation, debridement, head and liner exchange 12/26/2017; intra- operative culture grew MSSA (Pt took cefazolin x6 weeks then PO cephalexin x3 months) - OA of b/l hip - H/o R total hip replacement 08/27/2017 - DJD - Obesity - BMI 33.2 - Hypothyroidism - Anemia - stable - Depression - "Weakness" with oxacillin, without rash, dyspnea, swelling, GI Sx. Tolerates cefazolin Recommendations: - I had a detailed discussed with Pt and her re. her treatment of recurrent prosthetic joint infection and prevention of another episode of PJI - I explained the difficult nature of eradicating MSSA permanently from the prosthetic joint space: virulence factors (persistence) of S. aureus, microbiology of biofilm, treatment options - I recommend 6 weeks of cefazolin 2 gm IV q8 hours (08/08/18 - ); suggested end date: 09/19/2018. please order weekly CBC, BMP and ESR while Pt's on IV antibiotic - after the 6 week course of cefazolin, Pt will have an antibiotic-free period followed by diagnostic arthrocentesis by Dr. Farmer. At that time, I plan to ask Dr. Farmer take either a biopsy or frozen section. Depending on the result, the reimplantation may be deferred/aborted or a new device may be reimplanted with suppressive PO antibiotic(s) - I discussed the management with Pt and answered all her questions Consultation Date/Type/Reason Admit Date/Time Aug 07, 2018 at 10:08 Initial Consult Date 08/08/18 Type of Consult ID Requesting Provider: MARCEL FARMER Date/Time of Note DATE: 08/12/18 TIME: 12:54 24 HR Interval Summary Constitutional: no complaints Detailed Summary Eyes: no complaints ENT: no complaints Respiratory: no complaints Cardiovascular: no complaints Gastrointestinal: no complaints Genitourinary: no complaints Musculoskeletal: restricted range of motion, swelling, other (pain of the srugical site) Skin: No no complaints Neurologic: No dizziness, No focal-weakness Exam/Review of Systems Exam Vitals Vital Signs Date Temp Pulse Resp B/P (MAP) Pulse Ox O2 O2 Flow FiO2 Time Delivery Rate 08/12/18 98.1 87 19 144/78 98 07:48 (100) 08/12/18 Room Air 05:32 Intake and Output 08/11/18 08/11/18 08/12/18 1515:00 23:00 07:00 IntakeIntake Total 100 ml 50 ml 100 ml BalanceBalance 100 ml 50 ml 100 ml Constitutional: alert, oriented, well developed Psych: no complaints, nl mood/affect Head: normocephalic, atraumatic Eyes: nl conjunctiva, nl lids, nl sclera ENMT: nl external ears & nose, nl lips & teeth, nl nasal mucosa & septum Neck: supple, other (not swollen) Respiratory: clear to auscultation, normal air movement Cardiovascular: regular rate and rhythm, nl pulses Gastrointestinal: soft, non-tender; No distended Musculoskeletal: range of motion (limited at R hip), swelling (and warmth of R thigh) Extremities: tenderness (R thigh); No edema Neurological: 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 intact, nl mental status, nl speech Skin: nl turgor; No rash or lesions Results Result Diagram: 08/12/183 08/12/183 Results 24hrs Laboratory Tests Test 08/12/18 04:43 White Blood Count 5.6 Red Blood Count 2.67 L Hemoglobin 7.5 L Hematocrit 24.0 L Mean Corpuscular Volume 89.9 Mean Corpuscular Hemoglobin 28.1 L Mean Corpuscular Hemoglobin Concent 31.3 L Red Cell Distribution Width 15.7 H Platelet Count 366 Mean Platelet Volume 8.5 Immature Granulocytes % 3.400 H Neutrophils % 47.4 Lymphocytes % 23.7 Monocytes % 17.6 H Eosinophils % 7.0 Basophils % 0.9 Nucleated Red Blood Cells % 0.0 Immature Granulocytes # 0.190 H Neutrophils # 2.6 Lymphocytes # 1.3 Monocytes # 1.0 H Eosinophils # 0.4 Basophils # 0.1 Nucleated Red Blood Cells # 0.0 Sodium Level 142 Potassium Level 3.6 Chloride Level 97 Carbon Dioxide Level 33 H Anion Gap 12 Blood Urea Nitrogen 16 Creatinine 0.89 Est Glomerular Filtrat Rate mL/min > 60 Glucose Level 93 Calcium Level 9.6 Medications Medication Current Medications Oxycodone HCl (Roxicodone) 10 mg Q4H PRN PO .PAIN Last administered on 08/08/18 06:39; Admin Dose 10 MG; Start 08/07/18 at 18:00 Hydromorphone HCl (Dilaudid) 1 mg Q3H PRN IV .BREAKTHROUGH PAIN Last administered on 08/08/18 03:46; Admin Dose 1 MG; Start 08/07/18 at 18:00 Ondansetron HCl (Zofran Inj) 4 mg Q4H PRN IV NAUSEA/VOMITING; Start 08/08/18 at 18:00 Celecoxib (Celebrex) 100 mg BID PO Last administered on 08/12/18 09:17; Admin Dose 100 MG; Start 08/08/18 at 09:00 Gabapentin (Neurontin) 100 mg TID PO Last administered on 08/12/18 09:17; Adm in Dose 100 MG; Start 08/07/18 at 21:00 Pantoprazole (Protonix Tab) 40 mg DAILY@06 PO Last administered on 08/12/18at 05:30; Admin Dose 40 MG; Start 08/08/18 at 06:00 Senna/Docusate Sodium (Senokot-S) 2 tab BID PRN PO .CONSTIPATION; Start 08/07/18 at 18:00 Bisacodyl (Dulcolax Supp) 10 mg DAILY PRN [place] .CONSTIPATION; Start 08/07/18 at 18:00 IV Flush (NS 3 ml) 3 ml per protocol IV ; Start 08/07/18 at 18:00 Aspirin (Halfprin) 81 mg BID PO Last administered on 08/12/18 09:17; Admin Dose 81 MG; Start 08/08/18 at 09:00 Ascorbic Acid (Vitamin C) 1,000 mg DAILY PO Last administered on 08/12/18 09 :17; Admin Dose 1,000 MG; Start 08/08/18 at 09:00 Docusate Sodium (Colace) 250 mg DAILY PO Last administered on 08/12/18 09:17; Admin Dose 250 MG; Start 08/08/18 at 09:00 Duloxetine HCl (Cymbalta) 30 mg BID PO Last administered on 08/12/18 09:17; Admin Dose 30 MG; Start 08/07/18 at 21:00 Levothyroxine Sodium (Synthroid) 50 mcg BEFORE BREAKFAST PO Last administered on 08/12/18 06:27; Admin Dose 50 MCG; Start 08/08/18 at 07:00 Calcium/Vitamin D (Oyster Shell/ Vit-D (500/200)) 1 tab DAILY PO Last administered on 08/12/18 09:17; Admin Dose 1 TAB; Start 08/08/18 at 09:00 Acetaminophen/ Hydrocodone Bitart ([place] (10/325)) 1 tab Q4H PRN PO MODERATE PAIN LEVEL 4-6 Last administered on 08/12/18 05:36; Admin Dose 1 TAB; Start 08/08/18 at 11:30 Cefazolin Sodium/ Dextrose 50 ml @ 100 mls/hr Q8 IVPB Last administered on 08/12/18 05:29; Admin Dose 100 MLS/HR; Start 08/08/18 at 22:00 Ferric Sodium Gluconate Complex 125 mg/Sodium Chloride 100 ml @ 100 mls/hr DAILY@1300 IVPB Last administered on 08/11/18 13:24; Admin Dose 100 MLS/HR; Start 08/10/18 at 13:00; Stop 08/12/18 at 13:59 SHELLY ADAM M.D. Aug 12, 2018 12:59
--- NOTE | 2018-08-12 14:31 | NUR ---
ELIEZER NOTES: S/W HCP ELIEZER VASQUEZ [phone] AND SHE ARRANGED FOR IV OPTION [facility] AND RESUME ALL [phone]. ALL DC ARRANGEMENTS ARE DONE BY HCP ELIEZER VASQUEZ [phone]. SHE [employer]ETT LEAD ELIEZER [phone]
--- NOTE | 2018-08-12 15:17 | NUR ---
OT NOTE PT is mod I with ADl's- no further skilled OT warranted. d/c OT
[2018-08-12] MEDS ORDERED: CEFA2SYR IV (16:18)
[2018-08-12] MEDS ORDERED: ASPI-1044 PO (16:18)
[2018-08-12 16:24] VITALS: BP 131/62; PULSE 82; RESP 18
--- NOTE | 2018-08-12 18:54 | NUR ---
DISCHARGE NOTE IV D/C. Vitals stable. HECTOR PICC line patent with brisk blood return and dressing dry and intact. Home health set up and pt aware. All belongings with pt and her as her ride home. Pt discharged from unit via wheelchair.
--- NOTE | 2018-08-13 00:26 | CONS ---
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 - s/p stage I revision of R hip replacement with placement of antibiotic spacer and antibiotic beads on 08/07/2018, intra-operative culture grew MSSA - s/p arthrocentesis of R hip on 07/28/2018, the synovial fluid culture grew MSSA - h/o sepsis due to recurrent prosthetic R hip infection and bacteremia - H/o bacteremia on 07/26/2018 and 08/14/2018 due to MSSA; transthoracic echo on 07/27/18 did not mention thrombus, valvular vegetation; repeat blood cultures from 07/29/2018 were negative - warmth and swelling of R front-lateral thigh without erythema - S/p prosthetic R hip infection due to MSSA, s/p aspiration 12/25/2017; ESR 130 at that time, culture grew MSSA - S/p R hip irrigation, debridement, head and liner exchange 12/26/2017; intra- operative culture grew MSSA (Pt took cefazolin x6 weeks then PO cephalexin x3 months) - OA of b/l hip - H/o R total hip replacement 08/27/2017 - DJD - Obesity - BMI 33.2 - Hypothyroidism - Anemia - stable - Depression - "Weakness" with oxacillin, without rash, dyspnea, swelling, GI Sx. Tolerates cefazolin Revised recommendations: - I had a detailed discussed with Pt and her re. her treatment of recurrent prosthetic joint infection and prevention of another episode of PJI - I explained the difficult nature of eradicating MSSA permanently from the prosthetic joint space: virulence factors (persistence) of S. aureus, microbiology of biofilm, treatment options - I recommend 6 weeks of cefazolin 2 gm IV q8 hours (08/08/18 - ); suggested end date: 09/19/2018. please order weekly CBC, BMP and ESR while Pt's on IV antibiotic - I discussed the management with Dr. Farmer. after the 6 week course of cefazolin, Pt will have an antibiotic-free period of 2-8 weeks followed by diagnostic arthrocentesis by Dr. Farmer. If there is no e/o persistent infection, Pt will get reimplantation. Dr. Farmer agreed to do intra-operative frozen section. If the surgical site appears purulent, Dr. Farmer will repeat the1st step (i.e. debridement and exchange of the antibiotic impregnated spacer) without reimplantation. If the surgical site appears clean, he will perform intra-operative frozen section. Depending on the result, a new device will be reimplanted with suppressive PO antibiotic(s). Dr. Farmer mentioned one month of PO antibiotic; the ultimate duration will be determined at the time of reimplantation the total time I took to care for this Pt today was 45 min Consultation Date/Type/Reason Admit Date/Time Aug 07, 2018 at 10:08 Initial Consult Date 08/08/18 Type of Consult ID Requesting Provider: MARCEL FARMER Date/Time of Note DATE: 08/12/18 TIME: 23:18 Exam/Review of Systems Exam Vitals Vital Signs Date Temp Pulse Resp B/P (MAP) Pulse Ox O2 O2 Flow FiO2 Time Delivery Rate 08/12/18 98.2 82 18 131/62 98 16:24 (85) 08/12/18 Room Air 05:32 Intake and Output 08/11/18 08/11/18 08/12/18 1515:00 23:00 07:00 IntakeIntake Total 100 ml 50 ml 100 ml BalanceBalance 100 ml 50 ml 100 ml Results Result Diagram: 08/12/18 0443 08/12/18 0443 Results 24hrs Laboratory Tests Test 08/12/18 04:43 White Blood Count 5.6 Red Blood Count 2.67 L Hemoglobin 7.5 L Hematocrit 24.0 L Mean Corpuscular Volume 89.9 Mean Corpuscular Hemoglobin 28.1 L Mean Corpuscular Hemoglobin Concent 31.3 L Red Cell Distribution Width 15.7 H Platelet Count 366 Mean Platelet Volume 8.5 Immature Granulocytes % 3.400 H Neutrophils % 47.4 Lymphocytes % 23.7 Monocytes % 17.6 H Eosinophils % 7.0 Basophils % 0.9 Nucleated Red Blood Cells % 0.0 Immature Granulocytes # 0.190 H Neutrophils # 2.6 Lymphocytes # 1.3 Monocytes # 1.0 H Eosinophils # 0.4 Basophils # 0.1 Nucleated Red Blood Cells # 0.0 Sodium Level 142 Potassium Level 3.6 Chloride Level 97 Carbon Dioxide Level 33 H Anion Gap 12 Blood Urea Nitrogen 16 Creatinine 0.89 Est Glomerular Filtrat Rate mL/min > 60 Glucose Level 93 Calcium Level 9.6 SHELLY ADAM M.D. Aug 13, 2018 00:26
--- NOTE | 2018-08-13 08:47 | DS ---
Date/Time of Note Date/Time of Note DATE: 08/13/18 TIME: 08:45 Discharge Summary Admission/Discharge Info Admit Date/Time Aug 07, 2018 at 10:08 Discharge Date/Time Aug 12, 2018 at 18:50 Discharge Diagnosis 1. 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 2. Hypothyroidism 3. Depression 4. Acute blood loss Anemia w/iron deficiency Consults ,ID ,ORTHO Procedures 08/07/2018. Operation performed: Operation/Procedure Performed Stage I revision of right hip replacement 08/12/2018. PICC line insertion Hospital Course 57 yo F with PMH hypothyroidism, bilateral OA of hip with complication to R THR requiring multiple procedures including washout and revision presented for elective stage I revision of right hip replacement. Patient underwent stage I revision of infected right hip prosthesis on 08/07/2018. Stability was as noted for acute blood loss anemia with iron deficiency for which she received blood transfusion and IV iron. H&H remained stable thereafter. Incision site remained intact. Wound culture grew staph aureus and she was continued on appropriate antimicrobials per ID recommendations. Patient did have any other signs of SIRS. She was tolerating diet and activities well. Patient is cleared for home with home health PT. At this time, orthopedics and ID colic recommended 6 more weeks on cefazolin 2 g IV every 8 hours which was arranged by case aide. Patient also had a PICC line inserted for that. At this time, patient is medically cleared for discharge with outpatient orthopedic follow-up. Patient to continue aspirin, iron supplementation on discharge. Approximately 60 m spent on coordinating the discharge on this patient. Patient was seen in collaboration with . Home Meds Active Scripts Aspirin Delayed Release (Aspirin Delayed Release) 81 Mg Tablet., 81 MG PO BID, #30 TAB Prov:ROBERTO DUKES 08/12/18 Cefazolin Sodium/Water (Cefazolin 2 G/20 ml-Water Syrg) 2 Gm/20 Ml Syringe, 2 GM IV Q8H for 38 Days, #114 DOSE Prov:ROBERTO DUKES 08/12/18 Reported Medications Krill/Om-3/Dha/Epa/Phospho/Ast (Megared [place]-3 Krill Oil Sfgl) 1 Each Capsule, 1 EACH PO DAILY, CAP 08/07/18 Ca/D3/Mag#11/Zinc/Bottle And Glass Inspector/Maxx/Bor (Caltrate 600+D Plus Tablet) 1 Each Tablet, 1 EACH PO DAILY, TAB 08/07/18 Hydrocodone/Acetaminophen ([place] 5-325 Tablet) 1 Each Tablet, 1 EACH PO Q4 PRN for PAIN, TAB 08/07/18 Celecoxib* (Celebrex*) 100 Mg Capsule, 100 MG PO BID, CAP 08/07/18 Ascorbic Acid* (Vitamin C*) 500 Mg Capsule.sa, 1000 MG PO DAILY, CAP 08/07/18 Docusate Sodium* (Colace*) 250 Mg Capsule, 250 MG PO DAILY, #30 CAP 08/07/18 Duloxetine Hcl* (Duloxetine Hcl*) 30 Mg Capsule.dr, 30 MG PO BID, #30 CAP 07/03/18 Levothyroxine Sodium* (Levothyroxine Sodium*) 50 Mcg Tablet, 50 MCG PO BEFORE BREAKFAST, #30 TAB 08/27/17 Tramadol HCl (Tramadol HCl) 50 Mg Tablet, 50 MG PO BID, #60 TAB 08/27/17 Discontinued Reported Medications Ibuprofen* (Motrin*) 600 Mg Tab, 600 MG PO Q8H PRN for PAIN, TAB 08/07/18 Aspirin* (Aspirin*) 325 Mg Tablet, 325 MG PO BID, TAB 08/07/18 Discontinued Scripts Aspirin* (Aspirin* EC) 325 Mg Tab, 325 MG PO BID for for DVT prophylaxis for 14 Days, #28 TAB Prov:ROBERTO DUKES. 07/31/18 Docusate Sodium* (Colace*) 250 Mg Capsule, 250 MG PO DAILY, #30 CAP Prov:ROBERTO DUKES. 07/31/18 Pantoprazole* (Pantoprazole*) 40 Mg Tablet., 40 MG PO DAILY@06, #30 TAB Prov:ROBERTO DUKES 07/31/18 Hydrocodone/Acetaminophen (Hydrocodone-Acetamin 10-325 mg) 1 Each Tablet, 1 TAB PO Q6H PRN for MODERATE PAIN LEVEL 4-6, #20 TAB Prov:ROBERTO DUKES. 07/31/18 Primary Care Provider Not On Staff Doctor JOHN NATARAJAN NP Aug 13, 2018 08:47
== END 2018-08-12 18:50 | disposition home health service (06) | DRG 467 ==
LOC: REC 10:08 → MS1 19:48
PROVIDERS: ADMIT Orthopaedic Surgery; ATTEND Orthopaedic Surgery
PROC: 0SP90JZ Removal of Synthetic Substitute from Right Hip Joint, Open Approach (ICD-10-PCS; 2018-08-07)
PROC: 3E0U029 Introduction of Other Anti-infective into Joints, Open Approach (ICD-10-PCS; 2018-08-07)
PROC: 0SR90EZ Replacement of Right Hip Joint with Articulating Spacer, Open Approach (ICD-10-PCS; principal; 2018-08-07 12:30)
PROC: 30233N1 Transfusion of Nonautologous Red Blood Cells into Peripheral Vein, Percutaneous Approach (ICD-10-PCS; 2018-08-08)
PROC: 02HV33Z Insertion of Infusion Device into Superior Vena Cava, Percutaneous Approach (ICD-10-PCS; 2018-08-12)
DX: T84.51XA Infection and inflammatory reaction due to internal right hip prosthesis, initial encounter (principal); D62 Acute posthemorrhagic anemia; B95.61 Methicillin susceptible Staphylococcus aureus infection as the cause of diseases classified elsewhere; D50.9 Iron deficiency anemia, unspecified; E03.9 Hypothyroidism, unspecified; E66.9 Obesity, unspecified; F32.9 Major depressive disorder, single episode, unspecified; Z68.34 Body mass index [BMI] 34.0-34.9, adult
CPT/HCPCS: 36430; 36569; 71045; 72170; 76937; 80048; 82728; 83540; 84703; 85014; 85018; 85025; 86850; 86900; 86901; 86920; 87070; 87075; 87102; 87116; 88300; 88304; 97116; 97162; 97165; 97530; C1776; J0131; J0171; J0690; J0735; J1100; J1170; J1885; J2175; J2250; J2405; J2795; J2916; J3010; J3370; J7120; P9016

== ENCOUNTER 2018-10-23 05:50 | Inpatient (IN) | payer OTHER ==
[2018-10-13 11:17] VITALS: Ht 172.7 cm; Wt 97.3 kg
[~2018-10-23] VITALS: Ht 172.7 cm; Wt 97.3 kg
[2018-10-23] VITALS (20 sets, daily range): BP systolic 92–126; BP diastolic 55–74; PULSE 75–98; RESP 8–20
[~2018-10-23 05:50] MED LIST changes: -ACETAMINOPHEN 500 MG TAB PO ONE; +ASCO500C7 PO; +ASPI-1044 PO; -ASPI325T32 PO; +CALC1TAB4 PO; +CEFA2SYR IV; +CELE100C PO; -DEXAMETHASONE 4 MG/ML 1 ML INJ IV ONE; -HYDR-3609 PO; +HYDR-4011 PO; +KRIL1CAP22 PO; -PANT40TA4 PO; -TRANEXAMIC ACID 1,000 MG in D5W 100 ML AT CLOSURE X1 IVPB ONE; -TRANEXAMIC ACID 1,000 MG in D5W 100 ML AT INCISION X1 IVPB ONE
[2018-10-23] MEDS ORDERED: LACTATED RINGER'S 1,000 ML IV SCH (06:30)
[2018-10-23] MEDS ORDERED: ACETAMINOPHEN 1000MG/100ML IV 100 ML IVPB ONE (06:30)
[2018-10-23] MEDS ORDERED: CEFAZOLIN 2 GM/50 ML (PMX) 50 ML (FOR WT < 120 KG) IVPB ONE (06:30)
[2018-10-23] MEDS ORDERED: TRANEXAMIC ACID 1GM/100ML(PMX) 100 ML AT CLOSURE X1 IVPB ONE (06:30)
[2018-10-23] MEDS ORDERED: ACETAMINOPHEN 500 MG TAB PO ONE (06:30)
[2018-10-23] MEDS ORDERED: DEXAMETHASONE 4 MG/ML 1 ML INJ IV ONE (06:30)
[2018-10-23] MEDS ORDERED: BACITRACIN 50000 UNITS INJ ONE (06:49)
[2018-10-23] MEDS ORDERED: POLYMYXIN B 500000 UNIT INJ ONE (06:53)
[2018-10-23] MEDS ORDERED: DESFLURANE 15 MIN ONE (07:00)
[2018-10-23] MEDS ORDERED: GABA100C14 PO (07:07)
[2018-10-23] MEDS ORDERED: FER325 PO (07:07)
--- NOTE | 2018-10-23 07:20 | PREAC ---
Date/Time of Note Date/Time of Note DATE: 10/23/18 TIME: : Anesthesia Eval and Record Evaluation Time Pre-Procedure Interview DATE: 10/23/18 TIME: 07:19 Age 57 Sex female NPO: 8 hrs Preoperative diagnosis INFECTED RIGHT TOTAL HIP ARTHROPLASTY Planned procedure REVISION RIGHT TOTAL HIP ARTHROPLASTY, REMOVAL OF SPACER Past Medical History Past Medical History: Includes Endo: Hypothyroid GI: Obesity Surgery & Anesthesia Issues No known issue Meds Anticoagulation: No Beta Harsh within 24 hr: No Reason Beta Harsh not given: Pt. not on B-Harsh Active Scripts Aspirin Delayed Release (Aspirin Delayed Release) 81 Mg Tablet., 81 MG PO BID, #30 TAB Prov:ROBERTO DUKESDavid 08/12/18 Reported Medications Gabapentin* (Gabapentin*) 100 Mg Capsule, 100 MG PO TID, #90 CAP 10/23/18 Ferrous Sulfate* (Ferrous Sulfate*) 325 Mg Tabec, 325 MG PO BID, TAB 10/23/18 Krill/Om-3/Dha/Epa/Phospho/Ast (Megared [place]-3 Krill Oil Sfgl) 1 Each Capsule, 1 EACH PO DAILY, CAP 08/07/18 Ca/D3/Mag#11/Zinc/Digital Tech/Maxx/Bor (Caltrate 600+D Plus Tablet) 1 Each Tablet, 1 EACH PO DAILY, TAB 08/07/18 Celecoxib* (Celebrex*) 100 Mg Capsule, 100 MG PO BID, CAP 08/07/18 Ascorbic Acid* (Vitamin C*) 500 Mg Capsule.sa, 1000 MG PO DAILY, CAP 08/07/18 Levothyroxine Sodium* (Levothyroxine Sodium*) 50 Mcg Tablet, 50 MCG PO BEFORE BREAKFAST, #30 TAB 08/27/17 Tramadol HCl (Tramadol HCl) 50 Mg Tablet, 50 MG PO BID, #60 TAB 08/27/17 Discontinued Reported Medications Hydrocodone/Acetaminophen ([place] 5-325 Tablet) 1 Each Tablet, 1 EACH PO Q4 PRN for PAIN, TAB 08/07/18 Docusate Sodium* (Colace*) 250 Mg Capsule, 250 MG PO DAILY, #30 CAP 08/07/18 Duloxetine Hcl* (Duloxetine Hcl*) 30 Mg Capsule., 30 MG PO BID, #30 CAP 07/03/18 Discontinued Scripts Cefazolin Sodium/Water (Cefazolin 2 G/20 ml-Water Syrg) 2 Gm/20 Ml Syringe, 2 GM IV Q8H for 38 Days, #114 DOSE Prov:ROBERTO DUKES 08/12/18 Current Medications Lactated Ringer's 1,000 ml @ 25 mls/hr Q24H IV Last administered on 10/23/18at 06:53; Admin Dose 25 MLS/HR; Start 10/23/18 at 06:30; Stop 10/23/18 at 18:00 Meds reviewed: Yes Allergies Coded Allergies: oxacillin (Verified Allergy, Severe, 10/23/18) dizziness and weakness of extremities. Pt tolerates cefazolin. amoxicillin (Verified Allergy, Unknown, can't breathe, rash all over, 10/23/18) Allergies Reviewed: Yes Labs/Studies Labs Reviewed: Reviewed by anesthesiologist test: Negative Studies: ECG (NL), CXR (NAPD) Pre-procedure Exam Airway: Adequate mouth opening, Adequate thyromental dist Mallampati: Mallampati II Teeth: Normal Lung: Normal Heart: Normal ASA Physical Status ASA physical status: 2 Emergency: None Planned Anesthetic General/MAC: ETT Neuraxial: Spinal Planned Pain Management Sub-arachniod narcotics, Parenteral pain med Pre-operative Attestations Prior to commencing anesthesia and surgery, the patient was re-evaluated, there was verification of: *The patient's identity *The results of appropriate recent lab work and preoperative vital signs *The above evaluation not changing prior to induction *Anesthetic plan, risk benefits, alternative and complications discussed with patient/family; questions answered; patient/family understands, accepts and wishes to proceed. Khalif Smith M.D. Oct 23, 2018 07:20
[2018-10-23] MEDS ORDERED: ROCURONIUM 50 MG INJ ONE (07:25)
[2018-10-23] MEDS ORDERED: GLYCOPYRROLATE 0.4 MG INJ ONE (07:25)
[2018-10-23] MEDS ORDERED: PROPOFOL 20 ML ONE (07:25)
[2018-10-23] MEDS ORDERED: CEFAZOLIN 1 GM INJ ONE (07:25)
[2018-10-23] MEDS ORDERED: DEXAMETHASONE 4 MG/ML 5 ML INJ ONE (07:25)
[2018-10-23] MEDS ORDERED: MIDAZOLAM 1 MG/ML 2 ML INJ ONE (07:25)
[2018-10-23] MEDS ORDERED: FENTAnyl 50 MCG/ML VIAL ONE (07:25)
[2018-10-23] MEDS ORDERED: ONDANSETRON 4 MG INJ ONE (07:25)
[2018-10-23] MEDS ORDERED: NEOSTIGMINE 3 MG/3 ML SYRINGE ONE (07:25)
[2018-10-23] MEDS ORDERED: morphine SULFATE/PF (10 MG/10 ML) INJ ONE (07:27)
[2018-10-23] MEDS ORDERED: HYDROmorphONE 1 MG/5 ML IV SYRINGE IV PRN ×3 (07:30)
[2018-10-23] MEDS ORDERED: EPHEDrine SULFATE 50 MG/5 ML SYG IV PRN (07:30)
[2018-10-23] MEDS ORDERED: ALBUTEROL 0.083% (NEB) 2.5 MG/3 ML AMP HHN PRN (07:30)
[2018-10-23] MEDS ORDERED: MIDAZOLAM 1 MG/ML 2 ML INJ IV PRN (07:30)
[2018-10-23] MEDS ORDERED: NALBUPHINE HCL (10 MG/1 ML) INJ IV PRN (07:30)
[2018-10-23] MEDS ORDERED: TRIMETHOBENZAMIDE 100 MG/ML VIAL IM PRN ×2 (07:30)
[2018-10-23] MEDS ORDERED: HYDROmorphONE 0.5 MG/0.5 ML SYG IV PRN ×2 (07:30)
[2018-10-23] MEDS ORDERED: FENTAnyl 50 MCG/ML VIAL IV PRN ×3 (07:30)
[2018-10-23] MEDS ORDERED: LABETALOL HCL 20MG INJ IV PRN (07:30)
[2018-10-23] MEDS ORDERED: IPRATROPIUM (NEB) 0.5 MG/2.5 ML AMP HHN PRN (07:30)
[2018-10-23] MEDS ORDERED: hydrALAzine 20 MG INJ IV PRN (07:30)
[2018-10-23] MEDS ORDERED: OXYCODONE/ACETAMINOPHEN (5/325) TAB PO PRN ×2 (07:30)
[2018-10-23] MEDS ORDERED: DIPHENHYDRAMINE 50 MG INJ IV PRN (07:30)
[2018-10-23] MEDS ORDERED: NALOXONE (0.4 MG/ML) INJ IV PRN (07:30)
[2018-10-23] MEDS ORDERED: MEPERIDINE 25 MG INJ IV PRN (07:30)
[2018-10-23] MEDS ORDERED: ONDANSETRON 4 MG INJ IV PRN ×2 (07:30)
--- NOTE | 2018-10-23 07:43 | HPN ---
Date/Time of Note Date/Time of Note DATE: 10/23/18 TIME: 07:43 Interval H&P Admission Note Pt. seen H&P reviewed: No system changes MARCEL FARMER Oct 23, 2018 07:43
[2018-10-23] MEDS: TRANEXAMIC ACID 1GM/100ML(PMX) 100 ML AT INCISION X1 IVPB ONE ×2 (08:01)
[2018-10-23] MEDS ORDERED: TOBRAMYCIN 1.2 GM POWDER ONE (09:18)
[2018-10-23] MEDS ORDERED: VANCOMYCIN 1 GM INJ ONE (09:18)
--- NOTE | 2018-10-23 10:32 | SIPON ---
Date/Time of Note Date/Time of Note DATE: 10/23/18 TIME: 10:31 Operative Report Preoperative Diagnosis Infection of right hip replacement Postoperative Diagnosis Same Operation/Procedure Performed Stage II revision of right hip replacement Surgeon see signature line health care assistant DEJA Red Anesthesia: spinal Estimated blood loss: 250 - 300 ml's Transfusion Required none Specimen Cultures Grafts/Implants [place] revision hip, size 13 stem, 56 mm cup, 36 mm head Complications none MARCEL FARMER Oct 23, 2018 10:32
--- NOTE | 2018-10-23 10:37 | OPR ---
Date/Time of Note Date/Time of Note DATE: 10/23/18 TIME: 10:32 Operative Report Procedure Date: Oct 23, 2018 Preoperative Diagnosis Infection of right hip replacement Postoperative Diagnosis Same Operation/Procedure Performed Revision of right hip replacement, stage II Surgeon see signature line Cash Applications Analyst DEJA Red Anesthesia Type: spinal Estimated Blood Loss: 250 - 300 ml's Transfusion none Specimen Cultures Grafts/Implants [place] hip, size 13 stem, 56 mm cup, 36 mm ceramic head Tubes/Drains None Complications none Pt Condition Post Procedure: stable Disposition: PACU Indications The patient is a 57-year-old female who had an infection of her right hip replacement. She underwent removal of implants and placement of spacer a few months ago. She is now scheduled for removal of the spacer and her final total hip replacement Procedure Description The patient was placed supine on the operating room table. The right hip was prepped and draped in usual manner. Preoperative antibiotics were administered. The right hip was approached anteriorly. The plane between the sartorius and tensor fascia chip was developed in a blunt fashion. Hemostasis was achieved with electrocautery and aqua mantis. There was an effusion in the hip. Cultures were obtained. The hip spacer implants were removed with a combination of osteotomes and curettes. Tissue cultures were sent from the acetabulum and the femur. A frozen section was done and showed no clear evidence of infection. The tissue appeared to be clean. After this the acetabular preparation was done with reaming up to a size 55. A 56 trial cup was well fitting. The 56 cup was placed in 40 degrees of abduction and 20 degrees of anteversion. 2 screws were used to enhance fixation. The femur was prepared for revision stem. A size 13 stem was well fitting. This was placed with a high offset neck to create a stable hip. 3.5 mm of leg length were added for improved stability. X-rays confirm proper alignment of the implants. At this point the hip was stable with good range of motion. Leg length was felt to be slightly longer than the left. The patient has advanced osteoarthritis of her left hip as well. Once final implants were placed, the wound was thoroughly irrigated and injected with pain cocktail. Antibiotic beads were placed into the wound. The wound was closed in layers using #1 strata fix for deep fascia, 2-0 Vicryl for subcutaneous tissue and 3-0 Monocryl for the skin. Patient was transferred to the recovery room in stable condition MARCEL FARMER Oct 23, 2018 10:37
[2018-10-23] MEDS ORDERED: NACL 0.9% 3 ML SYG IV SCH (11:00)
[2018-10-23] MEDS ORDERED: MAGNESIUM HYDROXIDE 30ML CUP PO PRN (11:00)
[2018-10-23] MEDS ORDERED: oxyCODONE 5 MG TAB PO PRN ×3 (11:00)
--- NOTE | 2018-10-23 11:15 | PAC ---
Date/Time of Note Date/Time of Note DATE: 10/23/18 TIME: 11:15 Post-Anesthesia Notes Post-Anesthesia Note Last documented vital signs Vital Signs Date Temp Pulse Resp B/P (MAP) Pulse Ox O2 O2 Flow FiO2 Time Delivery Rate 10/23/18 98.0 10:33 Activity: WNL Respiratory function: WNL Cardiovascular function: WNL Mental status: Baseline Pain reasonably controlled: Yes Hydration appropriate: Yes Nausea/Vomiting absent: Yes Khalif Smith M.D. Oct 23, 2018 11:15
[2018-10-23] MEDS: DIPHENHYDRAMINE 50 MG INJ IV PRN ×2 (13:46→19:38)
[2018-10-23] MEDS: GABAPENTIN 100 MG CAP PO SCH ×2 (13:46→20:17)
[2018-10-23] MEDS: LACTATED RINGER'S 1,000 ML IV SCH ×2 (13:46→22:52)
--- NOTE | 2018-10-23 14:34 | CONS ---
Assessment/Plan Assessment/Plan Hospital Course (Demo Recall) SUBJECTIVE: No acute distress. OBJECTIVE: Vital signs-see below PHYSICAL EXAM: Constitutional: Well-developed, adequately built, lying in bed comfortably. Psych: nl mood/affect, no complaints Head: atraumatic, normocephalic Eyes: nl conjunctiva, nl sclera ENMT: mucosa pink and moist, nl external ears & nose Neck: non-tender, supple Respiratory: clear to auscultation, normal air movement Cardiovascular: nl pulses, regular rate and rhythm Gastrointestinal: non-tender, soft, bowel sounds active in all 4 quadrants. Musculoskeletal/extremities: Right hip surgical site intact. No oozing noted outside. Nl extremities to inspection, motor strength equal bilaterally, no focal deficit. Normal pulses,no cyanosis, no edema. Neurological: Alert oriented 3,nl speech, nl strength Skin: nl turgor ASSESSMENT/PLAN:57-year-old female with a history of hypothyroidism, osteoarthritis, history of right hip arthroplasty which was complicated with infection of hardware requiring multiple washout/revisions, IV antibiotics with final removal of implants with placement of a spacer early this year, brought in for stage II revision to complete total hip replacement with placement of new permanent hardware.. 1. Infection of right hip prosthesis -Patient had temporary spacer with stage I revision in July 2018, status post completion of antibiotic course.Now Status post Revision of right hip replacement, stage II 10/23/18 =>This complete right total hip replacement hopefully. -PT/postoperative antibiotic course/weightbearing/anticoagulation per orthopedic team. -On IV clinda w/stop date placed per ortho 2. Hypothyroidism - continue levothyroxine 3. Iron deficient anemia. -Continue iron supplementation. Disposition -follow-up orthopedic recommendations. DVT prophylaxis: Per orthopedic, on aspirin twice daily. PUD prophylaxis: PPI Patient is seen in collaboration with Dr. DUKES. Consultation Date/Type/Reason Admit Date/Time Oct 23, 2018 at 05:50 Type of Consult HOSPITALIST Reason for Consultation MEDICAL MANAGEMENT Requesting Provider: MARCEL FARMER Date/Time of Note DATE: 10/23/18 TIME: 14:31 Hx of Present Illness This is a 57-year-old female with a history of hypothyroidism, osteoarthritis, history of right hip arthroplasty which was complicated with infection of hardware requiring multiple washout/revisions, IV antibiotics with final removal of implants with placement of a spacer early this year,, brought in for stage II revision to complete total hip replacement with placement of new permanent hardware. Hospitalist consultation was requested for postoperative medical management. At my encounter with the patient, she denies chest pain, palpitation, shortness of breath, nausea, vomiting, abdominal pain, loss of consciousness, dizziness, numbness, tingling, fever, chills or other constitutional symptoms. Stable vital signs, no fevers. 12 point ROS negative except mentioned in HPI Past Medical History SEE HPI Home Meds Active Scripts Aspirin Delayed Release (Aspirin Delayed Release) 81 Mg Tablet.dr, 81 MG PO BID, #30 TAB Prov:ROBERTO DUKESDavid 08/12/18 Reported Medications Gabapentin* (Gabapentin*) 100 Mg Capsule, 100 MG PO TID, #90 CAP 10/23/18 Ferrous Sulfate* (Ferrous Sulfate*) 325 Mg Tabec, 325 MG PO BID, TAB 10/23/18 Krill/Om-3/Dha/Epa/Phospho/Ast (Megared [place]-3 Krill Oil Sfgl) 1 Each Capsule, 1 EACH PO DAILY, CAP 08/07/18 Ca/D3/Mag#11/Zinc/Or Scrub Tech/Maxx/Bor (Caltrate 600+D Plus Tablet) 1 Each Tablet, 1 E ACH PO DAILY, TAB 08/07/18 Celecoxib* (Celebrex*) 100 Mg Capsule, 100 MG PO BID, CAP 08/07/18 Ascorbic Acid* (Vitamin C*) 500 Mg Capsule.sa, 1000 MG PO DAILY, CAP 08/07/18 Levothyroxine Sodium* (Levothyroxine Sodium*) 50 Mcg Tablet, 50 MCG PO BEFORE BREAKFAST, #30 TAB 08/27/17 Tramadol HCl (Tramadol HCl) 50 Mg Tablet, 50 MG PO BID, #60 TAB 08/27/17 Discontinued Reported Medications Hydrocodone/Acetaminophen ([place] 5-325 Tablet) 1 Each Tablet, 1 EACH PO Q4 PRN for PAIN, TAB 08/07/18 Docusate Sodium* (Colace*) 250 Mg Capsule, 250 MG PO DAILY, #30 CAP 08/07/18 Duloxetine Hcl* (Duloxetine Hcl*) 30 Mg Capsule.dr, 30 MG PO BID, #30 CAP 07/03/18 Discontinued Scripts Cefazolin Sodium/Water (Cefazolin 2 G/20 ml-Water Syrg) 2 Gm/20 Ml Syringe, 2 GM IV Q8H for 38 Days, #114 DOSE Prov:ROBERTO DUKES 08/12/18 Medications Current Medications Lactated Ringer's 1,000 ml @ 25 mls/hr Q24H IV Last administered on 10/23/18at 06:53; Admin Dose 25 MLS/HR; Start 10/23/18 at 06:30; Stop 10/23/18 at 18:00 Hydromorphone HCl (Dilaudid) 0.2 mg Q2H PRN IV .PAIN 1-5; Start 10/23/18 at 07:30; Stop 10/24/18 at 07:54 Hydromorphone HCl (Dilaudid) 0.4 mg Q2H PRN IV .PAIN 6-10; Start 10/23/18 at 07:30; Stop 10/24/18 at 07:54 Diphenhydramine HCl (Benadryl) 25 mg Q4H PRN IV .PRURITUS Last administered on 10/23/18at 13:46; Admin Dose 25 MG; Start 10/23/18 at 07:30; Stop 10/24/18 at 07:54 Nalbuphine HCl (Nubain) 10 mg Q4H PRN IV .PRURITUS; Start 10/23/18 at 07:30; Stop 10/24/18 at 07:54 Ondansetron HCl (Zofran Inj) 4 mg Q6H PRN IV .NAUSEA/VOMITING; Start 10/23/18 at 07:30; Stop 10/24/18 at 07:54 Trimethobenzamide HCl (Tigan) 200 mg Q6H PRN IM .NAUSEA/VOMITING; Start 10/23/18 at 07:30; Stop 10/24/18 at 07:54 Naloxone HCl (Narcan) 0.2 mg Q2M PRN IV .RESP RATE; Start 10/23/18 at 07:30; Stop 10/24/18 at 07:54 Miscellaneous Information (* Miscellaneous Pharmacy Order) DURAMORPH: 0.2 MG SPI... GIVEN NEURAXIAL XX ; Start 10/23/18 at 07:30 Lactated Ringer's 1,000 ml @ 80 mls/hr [id number] IV Last administered on 10/23/18at 13:46; Admin Dose 80 MLS/HR; Start 10/23/18 at 10:38 Oxycodone HCl (Roxicodone) 15 mg Q4H PRN PO .PAIN; Start 10/23/18 at 11:00 Oxycodone HCl (Roxicodone) 10 mg Q4H PRN PO .PAIN; Start 10/23/18 at 11:00 Oxycodone HCl (Roxicodone) 5 mg Q4H PRN PO .PAIN; Start 10/23/18 at 11:00 Ondansetron HCl (Zofran Inj) 4 mg Q4H PRN IV NAUSEA/VOMITING; Start 10/24/18 at 11:00 Clindamycin HCl/ Dextrose 50 ml @ 50 mls/hr Q8 IVPB ; Start 10/23/18 at 14:00; Stop 10/24/18 at 06:59 Celecoxib (Celebrex) 100 mg BID PO ; Start 10/24/18 at 09:00 Gabapentin (Neurontin) 100 mg TID PO Last administered on 10/23/18at 13:46; Admin Dose 100 MG; Start 10/23/18 at 13:00 Pantoprazole (Protonix Tab) 40 mg DAILY@06 PO ; Start 10/24/18 at 06:00 Docusate Sodium (Colace) 200 mg BID PO ; Start 10/24/18 at 09:00; Stop 10/26/18 at 21:01 Magnesium Hydroxide (Milk Of Mag) 30 ml HS PRN PO .CONSTIPATION; Start 10/23/18 at 11:00 Ketorolac Tromethamine (Toradol) 15 mg Q6H PRN IV .PAIN; Start 10/23/18 at 11:00 IV Flush (NS 3 ml) 3 ml per protocol IV ; Start 10/23/18 at 11:00 Aspirin (Halfprin) 81 mg BID PO ; Start 10/24/18 at 09:00 Ferrous Sulfate (Ferrous Sulfate (Ec)) 325 mg BID PO ; Start 10/23/18 at 21:00 Levothyroxine Sodium (Synthroid) 50 mcg BEFORE BREAKFAST PO ; Start 10/24/18 at 07:00 Allergies: Coded Allergies: oxacillin (Verified Allergy, Severe, 10/23/18) dizziness and weakness of extremities. Pt tolerates cefazolin. amoxicillin (Verified Allergy, Unknown, can't breathe, rash all over, 10/23/18) Past Surgical History SEE HPI Past Surgical Hx: other Social History No hx of tobacco, alcohol or substance abuse Smoking Status: Never smoker Exam/Review of Systems Exam Vitals Vital Signs Date Temp Pulse Resp B/P (MAP) Pulse Ox O2 O2 Flow FiO2 Time Delivery Rate 10/23/18 97.7 75 18 113/66 100 Room Air 12:33 (82) Medications Medication Current Medications Lactated Ringer's 1,000 ml @ 25 mls/hr Q24H IV Last administered on 10/23/18at 06:53; Admin Dose 25 MLS/HR; Start 10/23/18 at 06:30; Stop 10/23/18 at 18:00 Hydromorphone HCl (Dilaudid) 0.2 mg Q2H PRN IV .PAIN 1-5; Start 10/23/18 at 07:30; Stop 10/24/18 at 07:54 Hydromorphone HCl (Dilaudid) 0.4 mg Q2H PRN IV .PAIN 6-10; Start 10/23/18 at 07:30; Stop 10/24/18 at 07:54 Diphenhydramine HCl (Benadryl) 25 mg Q4H PRN IV .PRURITUS Last administered on 10/23/18at 13:46; Admin Dose 25 MG; Start 10/23/18 at 07:30; Stop 10/24/18 at 07:54 Nalbuphine HCl (Nubain) 10 mg Q4H PRN IV .PRURITUS; Start 10/23/18 at 07:30; Stop 10/24/18 at 07:54 Ondansetron HCl (Zofran Inj) 4 mg Q6H PRN IV .NAUSEA/VOMITING; Start 10/23/18 at 07:30; Stop 10/24/18 at 07:54 Trimethobenzamide HCl (Tigan) 200 mg Q6H PRN IM .NAUSEA/VOMITING; Start 10/23/18 at 07:30; Stop 10/24/18 at 07:54 Naloxone HCl (Narcan) 0.2 mg Q2M PRN IV .RESP RATE; Start 10/23/18 at 07:30; Stop 10/24/18 at 07:54 Miscellaneous Information (* Miscellaneous Pharmacy Order) DURAMORPH: 0.2 MG SPI... GIVEN NEURAXIAL XX ; Start 10/23/18 at 07:30 Lactated Ringer's 1,000 ml @ 80 mls/hr [id number] IV Last administered on 10/23/18at 13:46; Admin Dose 80 MLS/HR; Start 10/23/18 at 10:38 Oxycodone HCl (Roxicodone) 15 mg Q4H PRN PO .PAIN; Start 10/23/18 at 11:00 Oxycodone HCl (Roxicodone) 10 mg Q4H PRN PO .PAIN; Start 10/23/18 at 11:00 Oxycodone HCl (Roxicodone) 5 mg Q4H PRN PO .PAIN; Start 10/23/18 at 11:00 Ondansetron HCl (Zofran Inj) 4 mg Q4H PRN IV NAUSEA/VOMITING; Start 10/24/18 at 11:00 Clindamycin HCl/ Dextrose 50 ml @ 50 mls/hr Q8 IVPB ; Start 10/23/18 at 14:00; Stop 10/24/18 at 06:59 Celecoxib (Celebrex) 100 mg BID PO ; Start 10/24/18 at 09:00 Gabapentin (Neurontin) 100 mg TID PO Last administered on 10/23/18at 13:46; Admin Dose 100 MG; Start 10/23/18 at 13:00 Pantoprazole (Protonix Tab) 40 mg DAILY@06 PO ; Start 10/24/18 at 06:00 Docusate Sodium (Colace) 200 mg BID PO ; Start 10/24/18 at 09:00; Stop 10/26/18 at 21:01 Magnesium Hydroxide (Milk Of Mag) 30 ml HS PRN PO .CONSTIPATION; Start 10/23/18 at 11:00 Ketorolac Tromethamine (Toradol) 15 mg Q6H PRN IV .PAIN; Start 10/23/18 at 11:00 IV Flush (NS 3 ml) 3 ml per protocol IV ; Start 10/23/18 at 11:00 Aspirin (Halfprin) 81 mg BID PO ; Start 10/24/18 at 09:00 Ferrous Sulfate (Ferrous Sulfate (Ec)) 325 mg BID PO ; Start 10/23/18 at 21:00 Levothyroxine Sodium (Synthroid) 50 mcg BEFORE BREAKFAST PO ; Start 10/24/18 at 07:00 JOHN NATARAJAN NP Oct 23, 2018 14:34
[2018-10-23] MEDS: CLINDAMYCIN 900 MG/D5W (PMX) 50 ML IVPB SCH ×2 (16:33→22:51)
[2018-10-23] MEDS: FERROUS SULFATE (EC) 325 MG TAB PO SCH (20:17)
[2018-10-23] MEDS: KETOROLAC 15 MG INJ IV PRN (22:51)
[2018-10-24 00:42] VITALS: BP 108/60; PULSE 78; RESP 18
[2018-10-24] MEDS: LACTATED RINGER'S 1,000 ML IV SCH (04:47)
[2018-10-24] MEDS ORDERED: PANTOPRAZOLE (EC) 40 MG TAB PO SCH (06:00)
[2018-10-24] MEDS: CLINDAMYCIN 900 MG/D5W (PMX) 50 ML IVPB SCH (06:02)
[2018-10-24] MEDS: KETOROLAC 15 MG INJ IV PRN ×3 (06:02→18:43)
[2018-10-24] MEDS ORDERED: LEVOTHYROXINE 50 MCG TAB PO SCH (07:00)
[2018-10-24 07:41] VITALS: BP 97/55; PULSE 78; RESP 18
[2018-10-24] MEDS: CELECOXIB 100 MG CAP PO SCH ×2 (09:23→20:48)
[2018-10-24] MEDS: GABAPENTIN 100 MG CAP PO SCH ×3 (09:24→20:48)
[2018-10-24] MEDS: FERROUS SULFATE (EC) 325 MG TAB PO SCH ×2 (09:24→20:48)
[2018-10-24] MEDS: DOCUSATE SODIUM 100 MG CAP PO SCH ×2 (09:24→20:47)
[2018-10-24] MEDS: ASPIRIN (EC) 81 MG TAB PO SCH ×2 (09:24→20:47)
[2018-10-24] MEDS ORDERED: ONDANSETRON 4 MG INJ IV PRN (11:00)
--- NOTE | 2018-10-24 11:23 | CONS ---
Assessment/Plan Assessment/Plan Hospital Course (Demo Recall) SUBJECTIVE: No acute distress. No fevers. Surgical site intact. OBJECTIVE: Vital signs-see below PHYSICAL EXAM: Constitutional: Well-developed, adequately built, lying in bed comfortably. Psych: nl mood/affect, no complaints Head: atraumatic, normocephalic Eyes: nl conjunctiva, nl sclera ENMT: mucosa pink and moist, nl external ears & nose Neck: non-tender, supple Respiratory: clear to auscultation, normal air movement Cardiovascular: nl pulses, regular rate and rhythm Gastrointestinal: non-tender, soft, bowel sounds active in all 4 quadrants. Musculoskeletal/extremities: Right hip surgical site intact. No oozing noted outside. Nl extremities to inspection, motor strength equal bilaterally, no focal deficit. Normal pulses,no cyanosis, no edema. Neurological: Alert oriented 3,nl speech, nl strength Skin: nl turgor ASSESSMENT/PLAN:57-year-old female with a history of hypothyroidism, osteoarthritis, history of right hip arthroplasty which was complicated with infection of hardware requiring multiple washout/revisions, IV antibiotics with final removal of implants with placement of a spacer early this year, brought in for stage II revision to complete total hip replacement with placement of new permanent hardware.. 1. Infection of right hip prosthesis -Patient had temporary spacer with stage I revision in July 2018, status post completion of antibiotic course.Now Status post Revision of right hip replacement, stage II 10/23/18 =>This complete right total hip replacement hopefully. -PT/postoperative antibiotic course/weightbearing/anticoagulation per orthopedic team. -Per orthopedic, patient was treated with few doses of clindamycin postoperatively which is now being stopped and no indication to continue hereafter. -Pathology pending. 2. Hypothyroidism - continue levothyroxine 3. Iron deficient anemia. -Continue iron supplementation. Disposition -follow-up orthopedic recommendations. DVT prophylaxis: Per orthopedic, on aspirin twice daily. PUD prophylaxis: PPI Disposition per orthopedic team. Patient with no evidence of infection and her infection was previously treated with IV antibiotics with eventual total hip replacement. Pathology is pending which we will follow-up. Patient is seen in collaboration with Dr. DUKES. Consultation Date/Type/Reason Admit Date/Time Oct 23, 2018 at 05:50 Initial Consult Date Type of Consult HOSPITALIST Requesting Provider: MARCEL FARMER Date/Time of Note DATE: 10/24/18 TIME: 11:21 Exam/Review of Systems Exam Vitals Vital Signs Date Temp Pulse Resp B/P (MAP) Pulse Ox O2 O2 Flow FiO2 Time Delivery Rate 10/24/18 98.0 78 18 97/55 (69) 99 07:41 10/24/18 Room Air 00:42 Intake and Output 10/23/18 10/23/18 10/24/18 1515:00 23:00 07:00 IntakeIntake Total 2600 ml 290 ml 1670 ml OutputOutput Total 100 ml 550 ml BalanceBalance 2500 ml 290 ml 1120 ml Results Result Diagram: 10/24/18 0439 10/24/18 0439 Results 24hrs Laboratory Tests Test 10/24/18 04:39 White Blood Count 8.9 # Red Blood Count 2.70 L Hemoglobin 8.1 L Hematocrit 24.8 L Mean Corpuscular Volume 91.9 Mean Corpuscular Hemoglobin 30.0 Mean Corpuscular Hemoglobin Concent 32.7 Red Cell Distribution Width 14.6 H Platelet Count 252 # Mean Platelet Volume 9.7 Immature Granulocytes % 0.500 H Neutrophils % 73.3 Lymphocytes % 14.4 L Monocytes % 11.5 H Eosinophils % 0.1 Basophils % 0.2 Nucleated Red Blood Cells % 0.0 Immature Granulocytes # 0.040 H Neutrophils # 6.5 Lymphocytes # 1.3 Monocytes # 1.0 H Eosinophils # 0.0 Basophils # 0.0 Nucleated Red Blood Cells # 0.0 Sodium Level 136 Potassium Level 5.2 H Chloride Level 103 Carbon Dioxide Level 23 Anion Gap 10 Blood Urea Nitrogen 26 H Creatinine 0.71 Est Glomerular Filtrat Rate mL/min > 60 Glucose Level 106 Calcium Level 9.4 Medications Medication Current Medications Miscellaneous Information (* Miscellaneous Pharmacy Order) DURAMORPH: 0.2 MG SPI... GIVEN NEURAXIAL XX ; Start 10/23/18 at 07:30 Lactated Ringer's 1,000 ml @ 80 mls/hr [id number] IV Last administered on 10/24/18at 04:47; Admin Dose 80 MLS/HR; Start 10/23/18 at 10:38 Oxycodone HCl (Roxicodone) 15 mg Q4H PRN PO .PAIN; Start 10/23/18 at 11:00 Oxycodone HCl (Roxicodone) 10 mg Q4H PRN PO .PAIN; Start 10/23/18 at 11:00 Oxycodone HCl (Roxicodone) 5 mg Q4H PRN PO .PAIN; Start 10/23/18 at 11:00 Ondansetron HCl (Zofran Inj) 4 mg Q4H PRN IV NAUSEA/VOMITING; Start 10/24/18 at 11:00 Celecoxib (Celebrex) 100 mg BID PO Last administered on 10/24/18 09:23; Admin Dose 100 MG; Start 10/24/18 at 09:00 Gabapentin (Neurontin) 100 mg TID PO Last administered on 10/24/18 09:24; Admin Dose 100 MG; Start 10/23/18 at 13:00 Pantoprazole (Protonix Tab) 40 mg DAILY@06 PO Last administered on 10/24/18 06:02; Admin Dose 40 MG; Start 10/24/18 at 06:00 Docusate Sodium (Colace) 200 mg BID PO Last administered on 10/24/18 09:24; Admin Dose 200 MG; Start 10/24/18 at 09:00; Stop 10/26/18 at 21:01 Magnesium Hydroxide (Milk Of Mag) 30 ml HS PRN PO .CONSTIPATION; Start 10/23/18 at 11:00 Ketorolac Tromethamine (Toradol) 15 mg Q6H PRN IV .PAIN Last administered on 10/24/18 06:02; Admin Dose 15 MG; Start 10/23/18 at 11:00 IV Flush (NS 3 ml) 3 ml per protocol IV ; Start 10/23/18 at 11:00 Aspirin (Halfprin) 81 mg BID PO Last administered on 10/24/18 09:24; Admin Dose 81 MG; Start 10/24/18 at 09:00 Ferrous Sulfate (Ferrous Sulfate (Ec)) 325 mg BID PO Last administered on 10/24/18 09:24; Admin Dose 325 MG; Start 10/23/18 at 21:00 Levothyroxine Sodium (Synthroid) 50 mcg BEFORE BREAKFAST PO Last administered on 10/24/18 06:58; Admin Dose 50 MCG; Start 10/24/18 at 07:00 JOHN NATARAJAN NP Oct 24, 2018 11:23
[2018-10-24 14:21] VITALS: BP 117/59; PULSE 95; RESP 18
== END 2018-10-24 21:15 | disposition home or self-care (01) | DRG 468 ==
LOC: REC 05:50 → MS1 12:31
PROVIDERS: ADMIT Orthopaedic Surgery; ATTEND Orthopaedic Surgery
PROC: 0SP908Z Removal of Spacer from Right Hip Joint, Open Approach (ICD-10-PCS; 2018-10-23)
PROC: 0SR904A Replacement of Right Hip Joint with Ceramic on Polyethylene Synthetic Substitute, Uncemented, Open Approach (ICD-10-PCS; principal; 2018-10-23 07:30)
DX: Z47.32 Aftercare following explantation of hip joint prosthesis (principal); Z96.641 Presence of right artificial hip joint; E03.9 Hypothyroidism, unspecified; D50.9 Iron deficiency anemia, unspecified
CPT/HCPCS: 73530; 80048; 85025; 86850; 86870; 86900; 86901; 87070; 87075; 87081; 87102; 88300; 88305; 88331; 97116; 97161; 97166; 97530; C1713; C1776; J0131; J0171; J0690; J0735; J1100; J1170; J1200; J1885; J2175; J2250; J2274; J2405; J2710; J2795; J3010; J3370; J7120